=== PATIENT | female | born 1940 | race Caucasian/White ===

== ENCOUNTER → 2016-03-28 | Outpatient (CLI) | payer OTHER ==
[~2016-03-28] MED LIST: AMLO-114 PO; AMOX875T PO; ASPCH81 PO; ATOR-22 PO; BENA20TA14 PO; CHOL1000 PO; CYAN100020 PO; OMEG10007 PO; PANT40TA PO; PRAV80TA2 PO; SNG10 PO; SULF800T23 PO
--- NOTE | 2016-03-28 16:53 | DIAGNOSTIC IMAGING REPORT ---
CHEST 2 VIEWS ROUTINE CLINICAL HISTORY: R05 [id number] dyspnea COMPARISON STUDY: 03/11/2016 FINDINGS: The bones soft tissues and hemidiaphragms are normal. The cardiomediastinal silhouette is normal. The lungs are clear. The pulmonary vasculature is normal. Chronic blunting left lateral lateral costophrenic angle. Slight chronic interstitial change at both lung bases. Several old left-sided rib fractures. Emphysematous change. IMPRESSION: Chronic and emphysematous change. No acute infiltrate. Electronically signed by: Franco Joseph M.D. 03/28/2016 4:51 PM
== END | disposition home or self-care (01) ==
LOC: C.RAD 16:18
PROVIDERS: ATTEND Internal Medicine Geriatric Medicine
DX: R05 Cough (principal)

== ENCOUNTER → 2016-08-03 | Outpatient (CLI) | payer OTHER ==
[~2016-08-03] MED LIST changes: +CEPH500C PO
== END | disposition home or self-care (01) ==
LOC: C.LABSPEC 17:20
PROVIDERS: ATTEND Physician Assistant Medical
DX: L03.221 Cellulitis of neck (principal)

== ENCOUNTER → 2016-10-25 | Outpatient (CLI) | payer OTHER ==
[~2016-10-25] MED LIST changes: -CEPH500C PO
[2016-10-25 09:38] LABS: BASO % 0.4 %; BASO ABS # 0.04 K/uL (0-0.2); COMPLETE YES; EOS % 1.8 %; IG% 0.1 %; LYMPH % 24.3 %; LYMPH ABS # 2.39 K/uL (1.2-3.4); MEAN CELL VOLUME 96.3 fL (80-100); MEAN CORPUSCULAR HEMOGLOBIN 30.6 pg (25-34); MEAN CORPUSCULAR HGB CONC 31.8 g/dl (32-36); MEAN PLATELET VOLUME 13.4 fL (7.4-10.4); MONO % 10.2 %; NEUT % 63.2 %; PLATELET COUNT 161 K/uL (130-400); RED BLOOD COUNT 5.19 M/uL (4.2-5.4); WHITE BLOOD COUNT 9.83 K/uL (4.8-10.8)
[2016-10-25 09:49] LABS: ESTIMATED AVERAGE GLUCOSE 123 mg/dl; HA1C FLAG Normal (Normal)
[2016-10-25 10:12] LABS: ALT/SGPT 21 U/L (12-78); BLOOD UREA NITROGEN 16 mg/dl (7-18); BUN/CREATININE RATIO 21.6 (10-20); CALCIUM 8.3 mg/dl (8.5-10.1); CARBON DIOXIDE 32 mmol/L (21-32); CHLORIDE 105 mmol/L (98-107); CHOLESTEROL 169 mg/dl (0-200); CREATININE 0.73 mg/dl (0.60-1.20); GLUCOSE 109 mg/dl (70-99); POTASSIUM 3.9 mmol/L (3.5-5.1); SODIUM 140 mmol/L (136-145); TRIGLYCERIDES 107 mg/dl (0-150); VERY LOW DENSITY LIPOPROT CALC 21 mg/dl
[2016-10-25 10:23] LABS: ALB/GLOB RATIO 1.1 (0.9-2); ALKALINE PHOSPHATASE 65 U/L (45-117); AST/SGOT 16 U/L (15-37); CHOLESTEROL/HDL RATIO 3.6; HDL CHOLESTEROL 47 mg/dl; LDL CHOLESTEROL CALCULATED 101 mg/dl
--- NOTE | 2016-11-02 06:43 | CODING QUERY MEDICAL NECESSITY ---
SUPPORTING DIAGNOSIS NEEDED A supporting diagnosis is required for the test/procedure performed on this patient in order for us to be reimbursed by the patient's insurance. Please provide a supporting diagnosis for the following test/procedure listed below next to the test name along with your signature. *If there is no additional diagnosis for this patient that would support the following test/procedure please document that below next to the test/procedure. Test(s)/Procedure(s) that require a supporting diagnosis: * HEMOGLOBIN A1C DIAGNOSIS: Provider Signature: Date: Thank you Nichelle Bertrand [employer] Once completed, please kindly fax back to [phone] For questions please call [phone]
== END | disposition home or self-care (01) ==
LOC: C.LAB 08:39
PROVIDERS: ATTEND Internal Medicine
DX: D69.6 Thrombocytopenia, unspecified (principal); G62.9 Polyneuropathy, unspecified; R73.09 Other abnormal glucose

== ENCOUNTER → 2016-11-18 | Outpatient (CLI) | payer OTHER ==
--- NOTE | 2016-11-18 10:33 | DIAGNOSTIC IMAGING REPORT ---
RIGHT KNEE 1 OR 2 VIEWS ROUTINE CLINICAL HISTORY: Bilateral knee pain. COMPARISON: None FINDINGS: Alignment of the right knee is anatomic. No fracture or osseous lesion is identified. There is no significant joint effusion. Joint spaces are preserved. There is mild osteophytosis within the medial and patellofemoral compartments. IMPRESSION: 1. No acute fracture or significant joint effusion. 2. 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 Electronically signed by: Damion Guerrier M.D. 11/18/2016 10:31 AM Dictated Date/Time: 11/18/2016 10:30 AM
--- NOTE | 2016-11-18 10:42 | DIAGNOSTIC IMAGING REPORT ---
LEFT KNEE 2 VIEWS HISTORY: KNEE PAIN, BILATERAL COMPARISON: None. FINDINGS: There is no fracture or dislocation. Mild vascular calcifications. There is also moderate osteoarthritis within the patellofemoral compartment. Possible 6 mm intra-articular loose body within the mid joint. Moderate cartilage space narrowing within the medial compartment of the left knee with subchondral sclerosis. This is consistent with osteoarthritis. Small knee effusion. IMPRESSION: 1. No fracture or dislocation within the left knee. 2. Small left knee effusion. 3. Moderate osteoarthritis. 4. Possible 6 mm intra-articular loose body. Electronically signed by: Doug Mcdermott M.D. 11/18/2016 10:40 AM Dictated Date/Time: 11/18/2016 10:39 AM
== END | disposition home or self-care (01) ==
LOC: C.RADBC 10:07
PROVIDERS: ATTEND Internal Medicine
DX: M25.561 Pain in right knee (principal); M25.562 Pain in left knee; M25.462 Effusion, left knee; M17.12 Unilateral primary osteoarthritis, left knee

== ENCOUNTER → 2016-12-19 | Outpatient (CLI) | payer OTHER ==
--- NOTE | 2016-12-19 15:50 | MAMMOGRAPHY REPORT ---
BILATERAL DIGITAL SCREENING MAMMOGRAM WITH CAD: 12/19/2016 CLINICAL HISTORY: Routine screening. Patient has no complaints. TECHNIQUE: Bilateral CC and MLO views were obtained. Current study was also evaluated with a Compute r Aided Detection (CAD) system. COMPARISON: Comparison is made to exams dated: 12/17/2015 mammogram, 11/24/2014 mammogram, 11/22/2013 m ammogram, 11/03/2011 mammogram, 11/01/2010 mammogram, and 10/30/2009 mammogram - [facility] er. BREAST COMPOSITION: There are scattered areas of fibroglandular density in both breasts. FINDINGS: There are numerous new clusters of fine pleomorphic densities versus microcalcifications p rojecting over the lateral posterior right breast, and posterior left breast. Although they could be dermal in origin, additional spot magnification views are recommended in both breasts, after placeme nt of mole markers for any obvious skin lesions given the interval development. No suspicious mass, developing asymmetry or focal area of architectural distortion is identified bila terally. There is a stable intramammary lymph node in the left upper outer middle one third of the b reast. IMPRESSION: ACR BI-RADS CATEGORY 0: INCOMPLETE EVALUATION: NEED ADDITIONAL IMAGING EVALUATION The numerous clusters of fine pleomorphic densities versus microcalcifications projecting in each pos terior breast and additional imaging evaluation. The patient will be called to schedule an appointment. Approximately 10% of breast cancers are not detected with mammography. A negative mammographic report should not delay biopsy if a clinically suggestive mass is present. Huma Croft M.D. ay/:12/19/2016 15:26:33 Journalism Internship: Vida GAYTAN(Tran)(Karyna), [facility] letter sent: Addl Imaging 0 BI-RADS Code: ACR BI-RADS Category 0: Incomplete Evaluation: Need Additional Imaging Evaluation
== END | disposition home or self-care (01) ==
LOC: C.MAMM 09:49
PROVIDERS: ATTEND Obstetrics & Gynecology
DX: Z12.31 Encounter for screening mammogram for malignant neoplasm of breast (principal); R92.8 Other abnormal and inconclusive findings on diagnostic imaging of breast

== ENCOUNTER 2016-12-20 13:54 | Emergency (ER) | payer OTHER ==
[~2016-12-20] VITALS: Ht 172.7 cm; Wt 95.6 kg
[~2016-12-20 13:54] MED LIST changes: -AMOX875T PO; -CHOL1000 PO; -CYAN100020 PO; -PRAV80TA2 PO; -SNG10 PO; -SULF800T23 PO
[2016-12-20 14:03] VITALS: TEMP 36.9; Ht 172.7 cm; Wt 95.6 kg
[2016-12-20] MEDS ORDERED: SODIUM CHLORIDE 0.9% 1000ML 250 ML IV STA (15:24)
[2016-12-20] MEDS ORDERED: SODIUM CHLORIDE 0.9% 1000ML 1,000 ML IV STA (15:24)
[2016-12-20] MEDS ORDERED: CEFTRIAXONE SOD INJ 1 GM ADDVIAL IV STA (15:24)
[2016-12-20] MEDS ORDERED: SNG10 PO (15:48)
[2016-12-20] MEDS ORDERED: CHOL1000 PO (15:48)
[2016-12-20] MEDS ORDERED: PRAV80TA2 PO (15:48)
[2016-12-20] MEDS ORDERED: CYAN100020 PO (15:48)
[2016-12-20 16:21] LABS: BASO % 0.3 %; BASO ABS # 0.04 K/uL (0-0.2); COMPLETE YES; EOS % 2.4 %; HEMATOCRIT 46.9 % (37-47); IG% 0.3 %; LYMPH % 26.4 %; LYMPH ABS # 3.02 K/uL (1.2-3.4); MEAN CELL VOLUME 95.9 fL (80-100); MEAN CORPUSCULAR HEMOGLOBIN 31.7 pg (25-34); MEAN PLATELET VOLUME 12.9 fL (7.4-10.4); MONO % 8.4 %; NEUT % 62.2 %; PLATELET COUNT 163 K/uL (130-400); RED BLOOD COUNT 4.89 M/uL (4.2-5.4); WHITE BLOOD COUNT 11.46 K/uL (4.8-10.8)
--- NOTE | 2016-12-20 16:58 | EMERGENCY ROOM VISIT NOTE ---
History Report prepared by Eren: Shruthi Gibbs Under the Supervision of: Dr. Doyle Davies M.D. First contact with patient: 15:11 Chief Complaint: WOUND INFECTION Stated Complaint: IRRITATION TO LEFT LEG History of Present Illness The patient is a 76 year old female who presents to the Emergency Room with complaints of a worsening wound infection on the left lateral ann for the past week. The patient does not remember what cause the initial wound. She thinks that she had "a cut or a sore there." About a week ago she was shaving her legs with the electric razor and hit the wound. This irritated it and she states that her symptoms have been worsening since then. She has been putting triple antibiotic ointment and salve on it, but the wound has been getting bigger and has started seeping. The patient reports pain that she rates as a 4/10 in severity. She notes some numbness in her left foot and swelling to the left ankle. She denies fevers, body aches, chills, cough, abdominal pain, urinary symptoms, and diarrhea. She takes a daily baby aspirin and denies any other blood thinner usage. Source of History: patient Onset: 1 week ago Position: leg (left) Symptom Intensity: 4/10 Quality: other (infection) Timing: worsening Modifying Factors (Worsening): other (shaving) Associated Symptoms: + numbness (left foot), No fevers, No chills, No cough , No abdominal pain, No diarrhea, No urinary symptoms Note: Pt notes swelling to the left ankle. Pt denies body aches. Review of Systems See HPI for pertinent positives & negatives. A total of 10 systems reviewed and were otherwise negative. Past Medical & Surgical Medical Problems: (1) Acute bronchitis (2) Hypertension Old medical records were reviewed. Nurse's notes were reviewed and I agree with. Family History Cancer Social History Smoking Status: Never Smoker Marital Status: Housing Status: lives with family Occupation Status: employed Current/Historical Medications Scheduled Amlodipine (Norvasc), 10 MG PO DAILY Amoxicillin & Pot Clavulanate (Augmentin 875-125 mg), 875 MG PO BID Aspirin (Aspirin Tab-Chewable *), 1 TAB PO DAILY Benazepril (Lotensin), 20 MG PO DAILY Cholecalciferol (Vitamin D3), 1,000 INTER.UNIT PO DAILY Cyanocobalamin (Vitamin B12), 1,000 MCG PO DAILY Fish Oil (Lipan-3), 1,000 MG PO DAILY Montelukast Sod (Montelukast Sodium), 10 MG PO DAILY Pravastatin Sodium (Pravastatin Sodium), 80 MG PO DAILY Sulfa/Trimethoprim (Bactrim Ds 800MG/160MG), 1 TAB PO BID Allergies Coded Allergies: Shellfish (Unverified Allergy, Severe, HIVES,ANAPHYLAXIS, 12/20/16) Physical Exam Vital Signs Date Time Temp Pulse Resp B/P (MAP) Pulse Ox O2 Delivery O2 Flow Rate FiO2 12/20/16 18:23 86 22 167/95 92 12/20/16 16:25 73 18 169/91 92 Room Air 12/20/16 14:03 36.9 90 17 188/83 96 Room Air Physical Exam General: Well developed well nourished non ill appearing older female in no acute distress, breathing comfortably on room air. Normal speech HEENT: Normal cephalic atraumatic. Pupils are equal round and reactive to light. Extraocular movements are intact. Oropharynx is pink with moist mucous membranes. No swelling of the mouth lips or tongue. Neck: Supple with a midline trachea. No meningeal signs or stiffness, no JVD or bruits. No Stridor. Chest: Somewhat diminished breath sounds on the left compared to the right which is chronic. No wheezes or rhonchi. No increased work of breathing. Heart: regular rate and rhythm. Abdomen: Soft nontender, nondistended without rebound guarding or rigidity. Extremities: Left lateral ann has an ulceration with surrounding purple discoloration of the skin, no definite cellulitis or pus drainage, no crepitus. Spine/Back. Non tender to palpation. No CVA tenderness Skin: Good turgor without rashes. Neurologic exam: Cranial nerves two through 12 are intact. Motor and sensation are intact and symmetrical throughout. Medical Decision & Procedures Laboratory Results 12/20/16 15:40 Red Blood Count 4.89, Mean Corpuscular Volume 95.9, Mean Corpuscular Hemoglobin 31.7, Mean Corpuscular Hemoglobin Concent 33.0, Mean Platelet Volume 12.9, Neutrophils (%) (Auto) 62.2, Lymphocytes (%) (Auto) 26.4, Monocytes (%) (Auto) 8.4, Eosinophils (%) (Auto) 2.4, Basophils (%) (Auto) 0.3, Neutrophils # (Auto) 7.14, Lymphocytes # (Auto) 3.02, Monocytes # (Auto) 0.96, Eosinophils # (Auto) 0.27, Basophils # (Auto) 0.04 12/20/16 15:40 Test 12/20/16 15:40 12/20/16 15:59 White Blood Count 11.46 K/uL (4.8-10.8) Red Blood Count 4.89 M/uL (4.2-5.4) Hemoglobin 15.5 g/dL (12.0-16.0) Hematocrit 46.9 % (37-47) Mean Corpuscular Volume 95.9 fL (80-100) Mean Corpuscular Hemoglobin 31.7 pg (25-34) Mean Corpuscular Hemoglobin Concent 33.0 g/dl (32-36) Platelet Count 163 K/uL (130-400) Mean Platelet Volume 12.9 fL (7.4-10.4) Neutrophils (%) (Auto) 62.2 % Lymphocytes (%) (Auto) 26.4 % Monocytes (%) (Auto) 8.4 % Eosinophils (%) (Auto) 2.4 % Basophils (%) (Auto) 0.3 % Neutrophils # (Auto) 7.14 K/uL (1.4-6.5) Lymphocytes # (Auto) 3.02 K/uL (1.2-3.4) Monocytes # (Auto) 0.96 K/uL (0.11-0.59) Eosinophils # (Auto) 0.27 K/uL (0-0.5) Basophils # (Auto) 0.04 K/uL (0-0.2) RDW Standard Deviation 49.5 fL (36.4-46.3) RDW Coefficient of Variation 14.0 % (11.5-14.5) Immature Granulocyte % (Auto) 0.3 % Immature Granulocyte # (Auto) 0.03 K/uL (0.00-0.02) Anion Gap 8.0 mmol/L (3-11) Est Creatinine Clear Calc Drug Dose 72.5 ml/min Estimated GFR () 82.3 Estimated GFR (Non- 71.0 BUN/Creatinine Ratio 19.9 (10-20) Calcium Level 8.8 mg/dl (8.5-10.1) Bedside Lactic Acid Venous 0.85 mmol/L (0.90-1.70) Laboratory studies as stated above per my review. Medications Administered Medications (Trade) Dose Ordered Sig/Lenny Route Start Time Stop Time Status Last Admin Dose Admin Sodium Chloride 250 ml @ 999 mls/hr Q16M STAT IV 12/20/16 15:24 12/20/16 15:51 DC 12/20/16 16:21 999 MLS/HR Sodium Chloride 1,000 ml @ 100 mls/hr Q10H STAT IV 12/20/16 15:24 12/21/16 01:23 12/20/16 16:21 100 MLS/HR Ceftriaxone Sodium (Rocephin Inj) 1 gm NOW STAT IV 12/20/16 15:24 12/20/16 15:51 DC 12/20/16 16:21 1 GM Trimethoprim/ Sulfamethoxazole (Septra Ds 800/ 160MG Tab) 1 tab NOW STAT PO 12/20/16 17:22 12/20/16 17:24 DC 12/20/16 18:03 1 TAB ED Course 1511: Past medical records reviewed. The patient was evaluated in room C9, and a complete history and physical examination were performed. 1524: Rocephin 1 gm IV, NSS 1000 ml @ 100 mls/hr IV, NSS 250 ml @ 999 mls/hr IV 1719: I reassessed the patient at this time. She is feeling better and resting comfortably. I discussed the results and treatment plan with the patient. I answered all pertaining questions that she had. She expressed understanding and verbalized agreement. The patient will be discharged home. Case management is discussing follow-up with the patient at this time. 1722: Trimethoprim/Sulfamethoxazole 1 tab PO Medical Decision Differential diagnoses includes cellulitis, wound infection, ulcer, electrolyte or metabolic abnormality. This patient comes in as described above . She has a bruised area with an ulcer in the left lateral leg. She is neurologically and neurovascularly intact. She has no systemic complaints. Her white count was mildly elevated .she was given Rocephin 1 g IV.. Blood cultures obtained her. Lactic acid is not elevated .she's had no electrode or metabolic abnormalities, she's had no pus or purulence. Given this break in the skin/ulcer I'll cover her with antibiotics although does not appear to be overtly cellulitic. She was given Bactrim in the ER as well as the Rocephin IV. She will be sent home with Augmentin and Bactrim prescriptions. I also had our high risk case manager moiz to her and he is going to get her in with wound care center to further evaluate the ulceration. She is not diabetic. She was started on bacitracin with a sterile dressing. I did outline the area around the wound and she is to return if increasing redness or warmth or pus drainage worsening symptoms, fever or chills , any new problems or concerns. She will have a close follow-up with the wound center. Medication Reconcilliation Current Medication List: was personally reviewed by me Blood Pressure Screening Patient's blood pressure: Elevated blood pressure Blood pressure disposition: Referred to PCP Impression Primary Impression: Ulcer of left lower extremity Additional Impression: Wound infection Scribe Attestation The scribe's documentation has been prepared under my direction and personally reviewed by me in its entirety. I confirm that the note above accurately reflects all work, treatment, procedures, and medical decision making performed by me. Departure Information Dispostion Home / Self-Care Prescriptions Sulfa/Trimethoprim (Bactrim Ds 800MG/160MG) Tab 1 TAB PO BID, #14 TAB Prov: Doyle Davies M.D. 12/20/16 Amoxicillin & Pot Clavulanate (Augmentin 875-125 mg) 1 Tab Tab 875 MG PO BID for 7 Days, #14 TAB Prov: Doyle Davies M.D. 12/20/16 Referrals Killian Lovelace M.D. (PCP) Forms HOME CARE DOCUMENTATION FORM, IMPORTANT VISIT INFORMATION, WORK / SCHOOL INSTRUCTIONS Patient Instructions My [facility] [employer] Additional Instructions Rest. Drink plenty of fluids. Apply bacitracin and sterile dressing twice a day to the wound Use Augmentin 875 mg twice a day for 7 days Use Bactrim double strength twice a day for 7 days Follow-up with the wound care clinic in the next 1-2 days for recheck Return to the ER if: increasing redness or warmth, pus drainage, fever or chills , any new problems or concerns Problem Qualifiers Primary Impression: Ulcer of left lower extremity Non-pressure ulcer stage: unspecified non-pressure ulcer stage Qualified Codes: L97.929 - Non-pressure chronic ulcer of unspecified part of left lower leg with unspecified severity
[2016-12-20 17:07] LABS: BLOOD UREA NITROGEN 16 mg/dl (7-18); BUN/CREATININE RATIO 19.9 (10-20); CALCIUM 8.8 mg/dl (8.5-10.1); CARBON DIOXIDE 29 mmol/L (21-32); CHLORIDE 105 mmol/L (98-107); CREATININE 0.81 mg/dl (0.60-1.20); GLUCOSE 101 mg/dl (70-99); SODIUM 142 mmol/L (136-145)
[2016-12-20] MEDS ORDERED: SULFAMETHOXAZOLE/TRIMETHOPRIM DS 800/160MG TAB PO STA (17:22)
[2016-12-20] MEDS ORDERED: SULF800T23 PO (17:25)
[2016-12-20] MEDS ORDERED: AMOX875T PO (17:25)
[2016-12-20 18:23] VITALS: BP 167/95; PULSE 86; O2SAT 92
--- NOTE | 2016-12-22 18:30 | Pharmacy Progress Note ---
ED Pharmacist Culture FollowUp Date of Service: Dec 22, 2016. Patient was sent home with a prescription for Augmentin and Bactrim, which should cover the MSSA growing from the patient's ulcer/leg culture.
== END 2016-12-20 18:24 | disposition home or self-care (01) ==
LOC: C.EDB 13:55 → C.EDC 18:24
DX: L97.929 Non-pressure chronic ulcer of unspecified part of left lower leg with unspecified severity (principal); L08.9 Local infection of the skin and subcutaneous tissue, unspecified; I10 Essential (primary) hypertension; Z79.82 Long term (current) use of aspirin

== ENCOUNTER → 2016-12-26 | Outpatient (CLI) | payer OTHER ==
[~2016-12-26] MED LIST changes: +AMOX875T PO; -ATOR-22 PO; +CHOL1000 PO; +CYAN100020 PO; -PANT40TA PO; +PRAV80TA2 PO; +SNG10 PO; +SULF800T23 PO
--- NOTE | 2016-12-26 12:36 | MAMMOGRAPHY REPORT ---
BILATERAL DIGITAL DIAGNOSTIC MAMMOGRAM: 12/26/2016 CLINICAL HISTORY: Call back from screening mammography for new bilateral groupings of calcifications versus density in the posterior aspect of each breast. Patient has numerous skin lesions and/or boil s bilaterally. TECHNIQUE: Spot magnification right CC, MLO, left ML and spot compression 2-D and tomosynthesis righ t CC view was obtained. COMPARISON: Comparison is made to exams dated: 12/19/2016 mammogram, 12/17/2015 mammogram, 11/24/2014 m ammogram, 11/22/2013 mammogram, 11/06/2012 mammogram, and 11/03/2011 mammogram - [facility]ter. BREAST COMPOSITION: The tissue of both breasts is almost entirely fatty. FINDINGS: Circular dense small markers were placed on both breasts, denoting dermal lesions. On man y of the spot magnification views, the mole markers correlate with nodular asymmetries containing lillie uped densities and calcifications, suggesting dermal nature. On the spot compression tomosynthesis v iew of the right breast, the calcifications correspond to the first slice of the tomosynthesis stack, confirming dermal origin. There is no evidence of a suspicious grouping or cluster microcalcificati on within either breast. IMPRESSION: ACR BI-RADS CATEGORY 2: BENIGN The new clusters and groupings of punctate densities versus calcifications in the posterior aspect of each breast represent dermal lesions/skin moles and do not represent suspicious microcalcifications within the breast parenchyma. There is no mammographic evidence of malignancy in the breasts. Recom mend return to annual screening mammography schedule. These results and recommendations were discussed with the patient at the time of the exam. Approximately 10% of breast cancers are not detected with mammography. A negative mammographic report should not delay biopsy if a clinically suggestive mass is present. Huma Croft M.D. ay/:12/26/2016 10:51:27 [employer]: Gabriela GAYTAN(Tran)(Karyna), [facility] letter sent: Normal 1/2 BI-RADS Code: ACR BI-RADS Category 2: Benign
== END | disposition home or self-care (01) ==
LOC: C.MAMM 09:35
PROVIDERS: ATTEND Obstetrics & Gynecology
DX: N64.59 Other signs and symptoms in breast (principal)

== ENCOUNTER → 2017-02-15 | Outpatient (CLI) | payer OTHER ==
[~2017-02-15] MED LIST changes: -AMOX875T PO; +CEPH500C PO; -SULF800T23 PO
--- NOTE | 2017-02-15 15:02 | DIAGNOSTIC IMAGING REPORT ---
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 Congestion. COMPARISON STUDY: 03/28/2016 FINDINGS: Infiltrate left base. This is superimposed upon chronic pleural and parenchymal change. Mild interstitial prominence right base unaltered. Upper lungs are clear. IMPRESSION: Infiltrate left base superimposed upon pre-existing chronic pleural and parenchymal change. The above report was generated using voice recognition software. It may contain grammatical, syntax or spelling errors. Electronically signed by: Franco Joseph M.D. 02/15/2017 3:01 PM Dictated Date/Time: 02/15/2017 2:58 PM
== END | disposition home or self-care (01) ==
LOC: C.RADBC 14:45
PROVIDERS: ATTEND Physician Assistant Medical
DX: Z00.00 Encounter for general adult medical examination without abnormal findings (principal); C34.90 Malignant neoplasm of unspecified part of unspecified bronchus or lung; J18.9 Pneumonia, unspecified organism; J44.9 Chronic obstructive pulmonary disease, unspecified

== ENCOUNTER → 2017-03-10 | Outpatient (CLI) | payer OTHER ==
--- NOTE | 2017-03-10 10:32 | DIAGNOSTIC IMAGING REPORT ---
CHEST 2 VIEWS ROUTINE CLINICAL HISTORY: COMMUNITY ACQUIRED PNEUMONIA dyspnea. COMPARISON STUDY: 02/13/2017 FINDINGS: Chronic pleural and parenchymal change left lung base. This is improved compared to the prior exam. Right lung remains clear. Several old left-sided or fracture. Mild chronic apical pleural thickening. IMPRESSION: Improved aeration left lung base with chronic pleural and parenchymal fibrotic scarring as residual. The above report was generated using voice recognition software. It may contain grammatical, syntax or spelling errors. Electronically signed by: Franco Joseph M.D. 03/10/2017 10:31 AM Dictated Date/Time: 03/10/2017 10:28 AM
== END | disposition home or self-care (01) ==
LOC: C.RAD1850 10:13
PROVIDERS: ATTEND Physician Assistant Medical
DX: J18.9 Pneumonia, unspecified organism (principal)

== ENCOUNTER → 2017-06-06 | Outpatient (CLI) | payer OTHER ==
[2017-06-06 11:15] LABS: BASO % 0.3 %; BASO ABS # 0.03 K/uL (0-0.2); EOS % 1.5 %; EOS ABS # 0.15 K/uL (0-0.5); HEMATOCRIT 49.2 % (37-47); HEMOGLOBIN 15.7 g/dL (12.0-16.0); IG# 0.04 K/uL (0.00-0.02); LYMPH % 22.8 %; LYMPH ABS # 2.29 K/uL (1.2-3.4); MEAN CELL VOLUME 95.3 fL (80-100); MEAN CORPUSCULAR HEMOGLOBIN 30.4 pg (25-34); MEAN CORPUSCULAR HGB CONC 31.9 g/dl (32-36); MEAN PLATELET VOLUME 12.6 fL (7.4-10.4); MONO % 6.2 %; MONO ABS # 0.62 K/uL (0.11-0.59); NEUT % 68.8 %; NEUT ABS # 6.92 K/uL (1.4-6.5); PLATELET COUNT 196 K/uL (130-400); RED CELL DISTRIBUTION WIDTH CV 15.5 % (11.5-14.5); RED CELL DISTRIBUTION WIDTH SD 54.5 fL (36.4-46.3); WHITE BLOOD COUNT 10.05 K/uL (4.8-10.8)
[2017-06-06 11:48] LABS: ALBUMIN 3.6 gm/dl (3.4-5.0); ALT/SGPT 22 U/L (12-78); BLOOD UREA NITROGEN 13 mg/dl (7-18); CALCIUM 8.8 mg/dl (8.5-10.1); CARBON DIOXIDE 33 mmol/L (21-32); CHOLESTEROL 166 mg/dl (0-200); CREATININE 0.61 mg/dl (0.60-1.20); GLUCOSE 99 mg/dl (70-99); SODIUM 138 mmol/L (136-145)
[2017-06-06 11:59] LABS: ALKALINE PHOSPHATASE 77 U/L (45-117); AST/SGOT 10 U/L (15-37); LDL CHOLESTEROL CALCULATED 99 mg/dl; TOTAL PROTEIN 7.5 gm/dl (6.4-8.2)
== END | disposition home or self-care (01) ==
LOC: C.LAB 09:51
PROVIDERS: ATTEND Internal Medicine
DX: C34.90 Malignant neoplasm of unspecified part of unspecified bronchus or lung (principal); J44.9 Chronic obstructive pulmonary disease, unspecified; E78.5 Hyperlipidemia, unspecified; I10 Essential (primary) hypertension; G62.9 Polyneuropathy, unspecified; R73.09 Other abnormal glucose

== ENCOUNTER → 2017-06-15 | Outpatient (CLI) | payer OTHER ==
--- NOTE | 2017-06-15 16:00 | DIAGNOSTIC IMAGING REPORT ---
CHEST 2 VIEWS ROUTINE CLINICAL HISTORY: J44.9,R05 dyspnea COMPARISON STUDY: 03/10/2017 FINDINGS: Chronic pleural and parenchymal change left base. Aeration is slightly improved from the prior exam. Chronic blunting left lateral cosmetic angle. Poorly defined minimal parenchymal infiltrate peripheral aspect right midlung. Several old rib fractures pre-existing. IMPRESSION: 1. Patchy peripheral parenchymal infiltrate right midlung. 2.. Chronic pleural and parenchymal change left base. 3. Mild emphysematous change. The above report was generated using voice recognition software. It may contain grammatical, syntax or spelling errors. Electronically signed by: Franco Joseph M.D. 06/15/2017 3:58 PM Dictated Date/Time: 06/15/2017 3:57 PM
== END | disposition home or self-care (01) ==
LOC: C.RADBC 15:26
PROVIDERS: ATTEND Internal Medicine
DX: J44.9 Chronic obstructive pulmonary disease, unspecified (principal); R05 Cough

== ENCOUNTER → 2017-06-21 | Outpatient (CLI) | payer OTHER ==
--- NOTE | 2017-06-21 13:53 | DIAGNOSTIC IMAGING REPORT ---
CT SCAN OF THE CHEST WITHOUT IV CONTRAST CLINICAL HISTORY: Follow-up lung cancer. Pneumonia. COMPARISON STUDY: Chest CT dated 08/13/2014. Chest x-ray dated 06/15/2017. TECHNIQUE: CT scan of the thorax was performed from the thoracic inlet to the upper abdomen. Images are reviewed in the axial, sagittal, and coronal planes. IV contrast was not administered for this examination as per the referring clinician. Note that the examination was performed in suboptimal fashion without IV contrast for the reported clinical history. A dose lowering technique was utilized adhering to the principles of ALARA. CT DOSE: 574.94 mGycm FINDINGS: Thyroid: Imaged portions of the thyroid gland are normal in size and attenuation. Thoracic aorta: There is atherosclerotic calcification of the thoracic aorta, which is normal in caliber and demonstrates standard 3-vessel arch anatomy. Heart: The heart is enlarged and without pericardial effusion. The coronary arteries are densely calcified. The pulmonary trunk is dilated, measuring 3.8 cm in diameter. This suggests pulmonary artery hypertension. Lungs and pleural spaces: Evaluation of the lung parenchyma is modestly degraded by motion artifact. Emphysematous change is noted. There are postoperative changes from left upper lobe resection with volume loss in the left lung and compensatory hyperinflation of the right lung. Scarring is seen in the left lower lung. No pleural effusion is identified. There is patchy groundglass consolidation/nodularity seen in the right upper lobe. The left lung appears clear. The trachea and central airways are patent. Mediastinum: There is no mediastinal lymphadenopathy. Glo: Not well assessed without IV contrast. Axillae: There is no axillary lymphadenopathy. Upper abdomen: There is a small hiatal hernia. Partially visualized upper abdominal viscera is otherwise within normal limits. Skeletal structures: The skeletal structures are osteopenic. Degenerative changes noted in the shoulders and thoracic spine. No lytic or blastic bony lesions are seen. Postoperative change is seen in the left posterior ribs. IMPRESSION: 1. There is patchy groundglass consolidation/nodularity identified in the right upper lobe. The appearance is typical for an infectious/inflammatory pneumonitis. Precautionary [address] follow-up is recommended to document resolution. 2. Cardiomegaly and emphysema. 3. There are postoperative changes from left upper lobe resection. There is no convincing evidence of recurrent/metastatic disease in the thorax. 4. The left lung appears clear. Electronically signed by: Kale Greene M.D. 06/21/2017 1:52 PM Dictated Date/Time: 06/21/2017 1:44 PM
== END | disposition home or self-care (01) ==
LOC: C.CTS 13:13
PROVIDERS: ATTEND Internal Medicine
DX: C34.90 Malignant neoplasm of unspecified part of unspecified bronchus or lung (principal); J18.9 Pneumonia, unspecified organism; R93.8 Abnormal findings on diagnostic imaging of other specified body structures; J43.9 Emphysema, unspecified; I51.7 Cardiomegaly

== ENCOUNTER 2018-11-29 15:34 | Inpatient (IN) ==
[2018-11-29] MEDS ORDERED: ALBUT/IPRATROP 3MG/0.5MG NEB 3 ML VIAL INH STA (15:48)
[2018-11-29] MEDS ORDERED: methylPREDNISolone 125 MG/2 ML VIAL IV STA (15:48)
[2018-11-29 16:11] LABS: Basophils # (auto) 0.02 K/uL (0-0.2); Basophils % (auto) 0.1 %; Hematocrit (blood only) 46.9 % (37-47); Hemoglobin 15.1 g/dL (12.0-16.0); Immature Granulocytes # (auto) 0.06 K/uL (0.00-0.02); Immature Granulocytes % (auto) 0.4 %; Lymphocytes # (auto) 1.77 K/uL (1.2-3.4); Lymphocytes % (auto) 10.5 %; Mean Corpuscular Hemoglobin 30.6 pg (25-34); Mean Corpuscular Hgb Conc 32.2 g/dL (32-36); Mean Corpuscular Volume 94.9 fL (80-100); Mean Platelet Volume 12.1 fL (7.4-10.4); Monocytes # (auto) 2.02 K/uL (0.11-0.59); Neutrophils # (auto) 12.92 K/uL (1.4-6.5); Platelet Count 158 K/uL (130-400); RDW Coefficient of Variation 15.4 % (11.5-14.5); RDW Standard Deviation 53.5 fL (36.4-46.3); Red Blood Count 4.94 M/uL (4.2-5.4); White Blood Count 16.79 K/uL (4.8-10.8)
--- NOTE | 2018-11-29 16:12 | Emergency Department Note ---
History of Present Illness General Chief complaint: Shortness of Breath/Dyspnea Stated complaint: COUGH,CHEST PAIN, ECT Time Seen by Provider: 11/29/18 15:40 History of Present Illness Maximum Pain Intensity: 5 This 78-year-old female with a history of lung cancer and COPD presents the ER with chief complaint of cough and chest congestion. This is been going on since Monday. The patient states that she has felt warm but her temperature has been 99-100. She denies any ear pain or sore throat. Patient states that coughing makes her chest hurt. She has been using her Ventolin inhaler with little relief. The patient states that she had 80% of her left lung removed 9 years ago. She is followed by Dr. Gibson. The patient states that her normal oxygen level is 89 on room air. She does not use supplemental oxygen at home. The patient was seen by her PCP earlier today and sent over here for further evaluation. The patient states that she went home first before she came to the emergency room. Home Medications Home Medications Medication Instructions Recorded Confirmed Type [place]-3 Fish Oil 1 tab PO QDL 01/16/18 11/29/18 History amlodipine 10 mg PO QDL 01/16/18 11/29/18 History ascorbic acid (vitamin C) [Vitamin 1 g PO QDL 01/16/18 11/29/18 History C] aspirin 81 mg PO QDL 01/16/18 11/29/18 History benazepril 20 mg PO QDL 01/16/18 11/29/18 History cyanocobalamin (vitamin B-12) 1,000 mcg PO QDL 01/16/18 11/29/18 History [Vitamin B-12] escitalopram oxalate 10 mg PO QDL 01/16/18 11/29/18 History montelukast 10 mg PO PM 01/16/18 11/29/18 History pravastatin 80 mg PO QPM 01/16/18 11/29/18 History albuterol sulfate HFA 90 2 puff INHALATION Q4H PRN gm 10/26/18 11/29/18 History mcg/actuation aerosol inhaler cholecalciferol (vitamin D3) 1,000 1,000 units PO DAILY cap 10/26/18 11/29/18 History unit capsule Allergies Allergy/AdvReac Type Severity Reaction Status Date / Time shellfish derived Allergy Severe HIVES,ANAPH Verified 11/29/18 12:34 YLAXIS No Known Drug Allergies Allergy Unknown Uncoded 11/29/18 12:34 Past Med/Surg History Medical History Anxiety Bifascicular block CHRONIC; DATING BACK TO AT LEAST 03/2015 EKG AT [facility] Cancer LUNG S/P LOBECTOMY Chronic obstructive pulmonary disease STABLE History of pneumonia 12/2017 S/P STEROIDS/ANTIBIOTICS Hyperlipidemia Hypertension Obesity Osteoarthritis Pulmonary nodule Surgical History History of colonoscopy History of lobectomy of lung LL LOBECTOMY / CANCER History of tonsillectomy History of tooth extraction Hx of oophorectomy LEFT Family History Unknown Silicosis Mother Ovarian cancer Social History Preferred Language: Polish Communication Ability: Effective Visual Impairment: No Limitations 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 Beliefs That Will Affect Care: None marital status: Current Living Situation: Spouse Feels Safe at Home: Yes Smoking Status: Former smoker Second Hand Exposure: No ; Hx Alcohol Use: No Hx Substance Use: No Review of Systems A total of 10 systems reviewed and were otherwise negative Physical Exam Vital Signs Vital Signs - 24 hr 11/29/18 15:36 11/29/18 16:08 11/29/18 16:09 Temperature 36.9 C Temperature Source Oral Sepsis Recent Fever Within 48 Hours No Sepsis Action Taken by Nursing No Action Required Pulse Rate 101 H Pulse Rate [Right Radial] Pulse Rhythm Regular Pulse Strength Normal Respiratory Rate 20 Respiratory Effort / Characteristics Non-Labored Respiratory Depth Normal Respiratory Pattern Regular Blood Pressure 162/79 H Blood Pressure Mean 106 Blood Pressure Position Sitting Pulse Oximetry 81 L 92 92 Oxygen Delivery Method Room Air Nasal Cannula Nasal Cannula Oxygen Flow Rate 2 2 11/29/18 16:15 11/29/18 16:50 11/29/18 16:51 Temperature Temperature Source Sepsis Recent Fever Within 48 Hours Sepsis Action Taken by Nursing Pulse Rate Pulse Rate [Right Radial] 80 Pulse Rhythm Pulse Strength Respiratory Rate 18 Respiratory Effort / Characteristics Respiratory Depth Respiratory Pattern Blood Pressure Blood Pressure Mean Blood Pressure Position Pulse Oximetry 93 85 L 92 Oxygen Delivery Method Nasal Cannula Room Air Oxygen Flow Rate 2 4 11/29/18 17:31 Temperature Temperature Source Sepsis Recent Fever Within 48 Hours Sepsis Action Taken by Nursing Pulse Rate Pulse Rate [Right Radial] Pulse Rhythm Pulse Strength Respiratory Rate Respiratory Effort / Characteristics Respiratory Depth Respiratory Pattern Blood Pressure Blood Pressure Mean Blood Pressure Position Pulse Oximetry 96 Oxygen Delivery Method Nasal Cannula Oxygen Flow Rate 3 PHYSICAL EXAM: Vital Signs were reviewed: Reviewed Nurse's notes and agree. Oxygen saturation is 81 % on room air which is low. GENERAL: 78-year-old female appears in no acute distress. MENTAL STATUS: Alert, oriented, coherent. EARS: Canals clear. TMs good light reflex, no erythema or fluid level noted. NOSE: Nasal mucosa with moderate erythema engorgement. PHARYNX: No erythema, no edema noted. No exudate noted. Airway is adequate. NECK: Supple, non-tender. No lymphadenopathy noted. LUNGS: Clear to auscultation without wheezes rales or rhonchi. Breath sounds on the left are slightly distant as compared to the right. No rales or rhonchi noted. CARDIAC: Regular rate and rhythm without murmur. SKIN: No rashes noted. Course Administered Medications Discontinued Medications Albuterol (Duoneb) 3 ml INH NOW STA Stop: 11/29/18 15:49 Last Admin: 11/29/18 16:14 Dose: 3 ml Documented by: [id number] Methylprednisolone (Solumedrol) 125 mg IV NOW STA Stop: 11/29/18 15:49 Last Admin: 11/29/18 16:10 Dose: 125 mg Documented by: [id number] Medical Decision Making Differential Diagnosis COPD exacerbation, pneumonia, viral URI Medical Records Attestation: I reviewed the patient's medical records. Home Medications Current Medication List: was personally reviewed by me Laboratory Data Attestation: I reviewed the patient's lab results. Result diagrams: 11/29/18 16:01 11/29/18 16:01 Lab Results 11/29/18 11/29/18 11/29/18 Range/Units 16:01 16:01 16:01 WBC 16.79 H (4.8-10.8) K/uL RBC 4.94 (4.2-5.4) M/uL Hgb 15.1 (12.0-16.0) g/dL Hct 46.9 (37-47) % MCV 94.9 (80-100) fL MCH 30.6 (25-34) pg MCHC 32.2 (32-36) g/dL RDW Std Deviation 53.5 H (36.4-46.3) fL RDW Coeff of Mariusz 15.4 H (11.5-14.5) % Plt Count 158 (130-400) K/uL MPV 12.1 H (7.4-10.4) fL Immature Gran % (Auto) 0.4 % Neut % (Auto) 77.0 % Lymph % (Auto) 10.5 % [place] % (Auto) 12.0 % Eos % (Auto) 0.0 % Baso % (Auto) 0.1 % Immature Gran # (Auto) 0.06 H (0.00-0.02) K/uL Neut # (Auto) 12.92 H (1.4-6.5) K/uL Lymph # (Auto) 1.77 (1.2-3.4) K/uL [place] # (Auto) 2.02 H (0.11-0.59) K/uL Eos # (Auto) 0.00 (0-0.5) K/uL Baso # (Auto) 0.02 (0-0.2) K/uL PT 10.9 (9.0-12.0) Seconds INR 1.1 (0.9-1.1) APTT 30.4 (21.0-31.0) Seconds PTT Ratio 1.1 Sodium 137 (136-145) mmol/L Potassium 3.3 L (3.5-5.1) mmol/L Chloride 100 (98-107) mmol/L Carbon Dioxide 32 (21-32) mmol/L Anion Gap 5.0 (3-11) BUN 13 (7-18) mg/dl Creatinine 0.70 (0.6-1.2) mg/dl Est Cr Clr Drug Dosing 83.2 ml/min Est GFR ( Amer) 96.9 Est GFR (Non-Af Amer) 83.6 BUN/Creatinine Ratio 18.2 (10-20) Glucose 129 H (70-99) mg/dl Calcium 8.9 (8.5-10.1) mg/dl Total Bilirubin 1.1 H (0.2-1) mg/dl AST 14 L (15-37) U/L ALT 14 (12-78) U/L Alkaline Phosphatase 84 (45-117) U/L Total Protein 7.4 (6.4-8.2) gm/dl Albumin 3.2 L (3.4-5.0) gm/dl Globulin 4.2 H (2.5-4.0) gm/dl Albumin/Globulin Ratio 0.8 L (0.9-2) Specimen Hemolysis Imaging Data Attestation: I personally reviewed and interpreted this imaging study as follows: My Impression: Bilateral infiltrates noted Radiologist's Impression: XR chest 2V routine CLINICAL HISTORY: Shortness of breath/cough COMPARISON STUDY: 06/21/2018 FINDINGS: The heart is at the upper limits of normal in size. There are postsurg ical changes are prior left sided lobectomy with volume loss. There are chronic left rib deformities. There is underlying pulmonary emphysema. Since the prior study, the patient has developed diffuse elevation of interstitium. While likely representing congestive failure, and interstitial infectious/inflammatory process could appear similar. There are no significant pleural effusions. IMPRESSION: 1. Postsurgical changes on the left 2. Emphysema 3. Interval development of diffuse bilateral interstitial opacities, likely representing congestive failure although an interstitial infectious/inflammatory processes could appear similar. Clinical and radiographic follow-up is recommended Electronically signed by: Jaydon Renee M.D. 11/29/2018 4:49 PM Dictated: 11/29/18 1647 Transcribed: 11/29/18 1647 Blood Pressure Blood Pressure Findings: Elevated blood pressure Blood Pressure Disposition: elevated BP felt to be situational MDM Narrative The patient was evaluated. The patient was placed on 2 L of oxygen via nasal cannula and her pulse ox came up to 91%. Patient was placed on a monitor and continuous pulse ox. IV access was obtained. CBC and differential, renal profile, coags were ordered. Chest x-ray was ordered and interpreted by the radiologist and myself as above. The patient does not have history of congestive heart failure and her symptoms are more consistent with an infectious process. The patient's case was discussed with Dr. Neri who individually evaluated the patient and agrees with treatment plan. Labs are reviewed. White count was 16.79. The hospitalist was consulted for admission. The patient was given Rocephin 1 g IV and Zithromax 500 mg IV as per Dr. Urbina Impression & Plan Bilateral pneumonia, Hypoxia Discharge Plan Visit Data Chief Complaint: Shortness of Breath/Dyspnea Stated Complaint: COUGH,CHEST PAIN, ECT Other Complaint: Chest Pain ED Provider: Matt Neri ED Midlevel Provider: Chayito Joseph Discharge Problem: Bilateral pneumonia, Hypoxia Patient Disposition: Being Evaluated by Hospitalist Condition: Good Forms Stand Alone Forms: Call Back Authorization, My [facility] Prescriptions Prescriptions: No Action cholecalciferol (vitamin D3) 1,000 unit capsule 1,000 units PO DAILY RF: 0 ascorbic acid (vitamin C) [Vitamin C] 1,000 mg Tablet 1 g PO QDL RF: 0 aspirin 81 mg Tablet,Delayed Release (Dr/Ec) 81 mg PO QDL RF: 0 pravastatin 80 mg Tablet 80 mg PO QPM RF: 0 amlodipine 10 mg Tablet 10 mg PO QDL RF: 0 benazepril 20 mg Tablet 20 mg PO QDL RF: 0 montelukast 10 mg Tablet 10 mg PO PM RF: 0 [place]-3 Fish Oil 300-1,000 mg Capsule 1 tab PO QDL RF: 0 cyanocobalamin (vitamin B-12) [Vitamin B-12] 1,000 mcg Tablet 1,000 mcg PO QDL RF: 0 escitalopram oxalate 10 mg Tablet 10 mg PO QDL RF: 0 albuterol sulfate [Ventolin HFA] 90 mcg/actuation HFA aerosol inhaler 2 puff INHALATION Q4H PRN (Reason: Wheezing) RF: 0 Referrals Referrals: Killian Lovelace MD [Primary Care Provider] -
[2018-11-29 16:24] LABS: INR 1.1 (0.9-1.1); Partial Thromboplastin Ratio 1.1; Partial Thromboplastin Time 30.4 Seconds (21.0-31.0); Prothrombin Time 10.9 Seconds (9.0-12.0)
[2018-11-29 16:40] LABS: Albumin Globulin Ratio 0.8 (0.9-2); Albumin Level 3.2 gm/dl (3.4-5.0); BUN Creatinine Ratio 18.2 (10-20); Bilirubin,Total 1.1 mg/dl (0.2-1); Calcium 8.9 mg/dl (8.5-10.1); Creatinine Clr Calc Pharmacy 83.2 ml/min; Est GFR (African American) 96.9; Est GFR (Non-African American) 83.6; Globulin 4.2 gm/dl (2.5-4.0); Potassium 3.3 mmol/L (3.5-5.1); Total Protein 7.4 gm/dl (6.4-8.2)
--- NOTE | 2018-11-29 16:51 | XRay Report ---
XR chest 2V routine CLINICAL HISTORY: Shortness of breath/cough COMPARISON STUDY: 06/21/2018 FINDINGS: The heart is at the upper limits of normal in size. There are postsurgical changes are prio r left sided lobectomy with volume loss. There are chronic left rib deformities. There is underlying pulmonary emphysema. Since the prior study, the patient has developed diffuse elevation of interstiti um. While likely representing congestive failure, and interstitial infectious/inflammatory process co uld appear similar. There are no significant pleural effusions. IMPRESSION: 1. Postsurgical changes on the left 2. Emphysema 3. Interval development of diffuse bilateral interstitial opacities, likely representing congestive f ailure although an interstitial infectious/inflammatory processes could appear similar. Clinical and radiographic follow-up is recommended Electronically signed by: Jaydon Renee M.D. 11/29/2018 4:49 PM
[2018-11-29] MEDS ORDERED: cefTRIAXone SODIUM 1,000 MG/50 ML BAG IV STA (17:25)
[2018-11-29] MEDS ORDERED: AZITHROMYCIN 500 MG in DEXTROSE 5% 250 ML IV STA (17:25)
--- NOTE | 2018-11-29 18:44 | History & Physical Report ---
Date of Service November 29, 2018 Assessment & Plan (1) Pneumonia: Admit to inpatient on telemetry Vital signs every 4 hours Duo nebs every 4 hours as needed Ceftriaxone 1 g IV every 24 doxycycline 100 mg IV twice daily Prednisone 40 mg p.o. daily Lactate pending, procalcitonin pending, CBC CMP daily Replenish electrolytes DVT prophylaxis Lovenox subcu every 24 Follow-up blood cultures Full code (2) Dyslipidemia: Continue pravastatin 80 mg p.o. every afternoon. Pending lipid panel Present on Admission?: Yes (3) Impaired fasting glucose: Patient is not on hypoglycemic agents. Heart healthy, ADA 1800, laura diet A1c pending Present on Admission?: Yes (4) History of lung cancer: We will check CT of the chest high-resolution. Continue albuterol HFA 2 puffs every 4 hours, montelukast 10 mg p.o. q. p.m. Present on Admission?: Yes (5) Hypertension: Continue home medicine: Benazepril 20 mg p.o. daily, aspirin 81 mg p.o. daily amlodipine 10 mg p.o. daily Present on Admission?: Yes History of Present Illness Chief Complaint: Shortness of breath Primary Care Provider: Killian Lovelace MD ,Patient is a 78 years old female with past medical history of of COPD, depression, dyslipidemia, impaired fasting glucose, hypertension, lung cancer presents to the emergency room with complaints of shortness of breath and cough for 4 days. Patient also reports chest congestion. Patient states that she fe lt warm but her temperature was 99 -100. Patient denies fever chills chest pain headache syncope near syncope abdominal pain frequency urgency hematemesis hematuria dysuria melena. Patient states that 80% of her left lung was removed 9 years ago when she had a cancer. She is followed by Dr. iDor. When patient arrived her oxygen was below 88%. Patient is now on 3 L of oxygen and her O2 sats are above 92. Patient does not use oxygen at home. Labs are reviewed: White blood cell 16.79, hemoglobin 15.1, hematocrit 46.9 platelets 158, INR 1.1, BUN 13, creatinine 0.7, GFR 83.6, hemoglobin A1c pending BMP pending AST 14 ALT 14 total bili 1.1, albumin 3.2. X-ray shows postsurgical changes on the left, emphysema, interval development of diffuse bilateral interstitial opacities, likely likely representing congestive failure although an interstitial infectious inflammatory process could appear similar. Decision was made to admit patient for pneumonia and PCU telemetry. Allergies Allergy/AdvReac Type Severity Reaction Status Date / Time shellfish derived Allergy Severe HIVES,ANAPH Verified 11/29/18 12:34 YLAXIS No Known Drug Allergies Allergy Unknown Uncoded 11/29/18 12:34 Home Medications Home Medications Medication Instructions Recorded Confirmed Type [place]-3 Fish Oil 1 tab PO QDL 01/16/18 11/29/18 History amlodipine 10 mg PO QDL 01/16/18 11/29/18 History ascorbic acid (vitamin C) [Vitamin 1 g PO QDL 01/16/18 11/29/18 History C] aspirin 81 mg PO QDL 01/16/18 11/29/18 History benazepril 20 mg PO QDL 01/16/18 11/29/18 History cyanocobalamin (vitamin B-12) 1,000 mcg PO QDL 01/16/18 11/29/18 History [Vitamin B-12] escitalopram oxalate 10 mg PO QDL 01/16/18 11/29/18 History montelukast 10 mg PO PM 01/16/18 11/29/18 History pravastatin 80 mg PO QPM 01/16/18 11/29/18 History albuterol sulfate HFA 90 2 puff INHALATION Q4H PRN gm 10/26/18 11/29/18 History mcg/actuation aerosol inhaler cholecalciferol (vitamin D3) 1,000 1,000 units PO DAILY cap 10/26/18 11/29/18 History unit capsule Past Med/Surg History Medical History Anxiety Bifascicular block CHRONIC; DATING BACK TO AT LEAST 03/2015 EKG AT [facility] Cancer LUNG S/P LOBECTOMY Chronic obstructive pulmonary disease STABLE History of pneumonia 12/2017 S/P STEROIDS/ANTIBIOTICS Hyperlipidemia Hypertension Obesity Osteoarthritis Pulmonary nodule Surgical History History of colonoscopy History of lobectomy of lung LL LOBECTOMY 2/2 CANCER History of tonsillectomy History of tooth extraction Hx of oophorectomy LEFT Family History Unknown Silicosis Mother Ovarian cancer Social History Preferred Language: Lao Communication Ability: Effective Visual Impairment: No Limitations 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 Beliefs That Will Affect Care: None marital status: Current Living Situation: Spouse Other Information That Helps Us Care for You: No Feels Safe at Home: Yes Safety Concerns: Feels Safe At This Time Smoking Status: Former smoker Second Hand Exposure: No ; Hx Alcohol Use: No Hx Substance Use: No Review of Systems Review of Systems: All systems reviewed & are unremarkable except as noted in HPI & below Physical Exam Constitutional: WD/WN, vitals as above well developed Eyes: PERRL, conjunctivae normal, anicteric sclerae ENMT: external ear and nose normal, oropharynx normal Neck: trachea midline, no thyromegaly Respiratory: Auscultation: + crackles and + wheezes Cardiovascular: RRR, no murmur, no edema Gastrointestinal (Abdomen): normal bowel sounds, soft, nontender, no hepatosplenomegaly Musculoskeletal: no cyanosis or clubbing, extremities motor strength 5/5 Skin: no rashes, warm and dry Neurologic: patellar DTR's 2+ bilat, sensation intact Psychiatric: A+Ox3, euthymic affect Lymphatic: no cervical or axillary lymphadenopathy Results & Data Vital Signs (Past 12 Hours) Vital Signs Temp Pulse Pulse Resp BP Pulse Ox 11/29/18 18:00 93 H 23 91 11/29/18 17:31 17 163/35 H 96 11/29/18 17:30 24 95 11/29/18 17:13 23 145/98 H 95 11/29/18 17:00 96 11/29/18 16:51 92 11/29/18 16:50 85 L 11/29/18 16:30 88 26 H 91 11/29/18 16:17 82 18 99 11/29/18 16:15 80 18 93 11/29/18 16:09 92 11/29/18 16:08 92 11/29/18 15:36 36.9 C 101 H 20 162/79 H 81 L Code Status & VTE Plan Code Status Full code VTE Prophylaxis Plan VTE Prophylaxis will be ordered: Yes PG Care Time/CCT Total # of Minutes Spent Total Time Spent with Patient: Total time spent is greater than 50% in coordination of care (as documented) at patient's floor/unit and/or counseling patient: (1) Hypertension Hypertension type: essential hypertension Qualified Code(s): I10 - Essential (primary) hypertension
[2018-11-29] MEDS ORDERED: ALBUTEROL HFA 8 GM INHALER INH PRN (19:44)
[2018-11-29] MEDS ORDERED: SOD PHOSPHATE/SOD BIPHOSPHATE ENEMA 132 ML BTL PR PRN (19:44)
[2018-11-29] MEDS ORDERED: NSS + 20MEQ KCL 20 MEQ/1,000 ML BAG IV SCH (19:44)
[2018-11-29] MEDS ORDERED: POLYETHYLENE (MIRALAX) 17 GM PACK PO PRN (19:44)
[2018-11-29] MEDS ORDERED: GLYCERIN ADULT 12 EA SUPP PR ONE (20:00)
[2018-11-29] MEDS: FLUTICASONE/SALMETEROL 250/50 (ADVAIR) 14 PUFF/1 INHALER INH SCH (21:03)
[2018-11-29] MEDS: ENOXAPARIN INJ 40 MG/0.4 ML SYR SQ SCH (21:03)
[2018-11-29] MEDS: PRAVASTATIN SOD 40 MG TAB PO SCH (21:11)
[2018-11-29] MEDS: DOXYCYCLINE HYCLATE 100 MG CAP PO SCH (21:11)
[2018-11-29] MEDS: MONTELUKAST SODIUM 10 MG TABLET PO SCH (21:11)
[2018-11-29] MEDS: DOCUSATE SODIUM 100 MG CAP PO SCH (21:32)
[2018-11-30 06:14] LABS: Basophils # (auto) 0.01 K/uL (0-0.2); Basophils % (auto) 0.1 %; Hematocrit (blood only) 45.3 % (37-47); Hemoglobin 14.2 g/dL (12.0-16.0); Immature Granulocytes # (auto) 0.05 K/uL (0.00-0.02); Immature Granulocytes % (auto) 0.3 %; Lymphocytes # (auto) 0.75 K/uL (1.2-3.4); Lymphocytes % (auto) 5.2 %; Mean Corpuscular Hemoglobin 30.3 pg (25-34); Mean Corpuscular Hgb Conc 31.3 g/dL (32-36); Mean Corpuscular Volume 96.6 fL (80-100); Mean Platelet Volume 11.7 fL (7.4-10.4); Monocytes # (auto) 0.48 K/uL (0.11-0.59); Monocytes % (auto) 3.3 %; Neutrophils # (auto) 13.12 K/uL (1.4-6.5); Neutrophils % (auto) 91.1 %; Platelet Count 157 K/uL (130-400); RDW Coefficient of Variation 15.4 % (11.5-14.5); RDW Standard Deviation 54.3 fL (36.4-46.3); Red Blood Count 4.69 M/uL (4.2-5.4); White Blood Count 14.41 K/uL (4.8-10.8)
[2018-11-30 06:17] LABS: Estimated Average Glucose 134 mg/dl; Hemoglobin A1C 6.3 % (4.5-5.6)
[2018-11-30 06:46] LABS: Albumin Level 2.6 gm/dl (3.4-5.0); BUN Creatinine Ratio 25.3 (10-20); Bilirubin,Total 0.5 mg/dl (0.2-1); Calcium 7.9 mg/dl (8.5-10.1); Creatinine Clr Calc Pharmacy 99.6 ml/min; Est GFR (Non-African American) 88.9; Potassium 3.9 mmol/L (3.5-5.1)
[2018-11-30 06:50] LABS: Albumin Globulin Ratio 0.7 (0.9-2); Globulin 3.9 gm/dl (2.5-4.0); Total Protein 6.5 gm/dl (6.4-8.2)
[2018-11-30] MEDS ORDERED: PERFLUTREN LIPID MICROSPHERE (DEFINITY) IV ONE (07:45)
[2018-11-30] MEDS: FLUTICASONE/SALMETEROL 250/50 (ADVAIR) 14 PUFF/1 INHALER INH SCH ×2 (08:25→20:57)
[2018-11-30] MEDS: DOCUSATE SODIUM 100 MG CAP PO SCH ×2 (08:27→21:00)
[2018-11-30] MEDS: DOXYCYCLINE HYCLATE 100 MG CAP PO SCH ×2 (08:28→21:00)
[2018-11-30] MEDS: CHOLECALCIFEROL 1,000 UNITS TAB PO SCH (08:29)
[2018-11-30] MEDS ORDERED: predniSONE 20 MG TAB PO SCH (09:00)
--- NOTE | 2018-11-30 10:09 | CT Scan Report ---
CT chest wo con CT DOSE: 736.81 mGycm CLINICAL HISTORY: 78 years-old Female with pulmonary nodule. Follow-up study in a patient with histo ry of pulmonary nodule. TECHNIQUE: Multiaxial CT images of the chest were performed without contrast. A dose lowering techni que was utilized adhering to the principles of ALARA. COMPARISON: Chest CT 08/28/2018, 03/05/2018, 08/13/2014. FINDINGS: No focal thyroid nodule identified. Moderate cardiomegaly without pericardial effusion. Coronary jeff rial and aortic annular calcifications are noted. No thoracic aortic aneurysm. Moderate dilation of t he pulmonary artery suggests pulmonary arterial hypertension. Prominent and enlarged mediastinal lymp h nodes measure up to 1.2 x 2.4 cm within the subcarinal distribution, increased in size from compari son. Left hilar prominence is suggestive of left hilar adenopathy, limited evaluation without the use of IV contrast. Trace pleural effusions are redemonstrated. There is no pneumothorax. Postoperative changes from prior left lower lobectomy. Subsegmental consolidation about the dependent right lower l obe. Additionally, there are scattered groundglass and alveolar opacities within all lobes bilaterall y with areas of moderate bronchial wall thickening. Mild intralobular septal thickening of the right lung apex. 7 mm solid nodule of the posterior segment right upper lobe appears unchanged on image 92 series 4. Mild degree of tracheobronchial secretions are noted. Scattered multifocal tree-in-bud nodu les. Mild wall thickening about the distal esophagus. No acute process of the imaged upper abdomen. Soft t issues are within normal limits. Degenerative changes of the spine and shoulders. No suspicious bone lesions identified. Multiple healed remote left-sided rib fractures. IMPRESSION: 1. Scattered multifocal mixed groundglass and alveolar opacities within all lobes bilaterally is sugg estive of multifocal pneumonia. Follow-up imaging after treatment course is recommended to document c omplete resolution. 2. Scattered multifocal tree-in-bud nodules compatible with associated bronchiolitis. 3. Emphysema with bronchitis. 4. Mediastinal and hilar adenopathy, likely reactive. 5. Trace pleural effusions, unchanged. 6. Cardiomegaly. 7. Unchanged size of the 7 mm solid nodule of the posterior segment right upper lobe. Please refer to below summary of Fleischner criteria recommendations for follow-up of incidental CT n odules (H Carl, Guidelines for management of small pulmonary nodules detected on CT scans: A hilary ruelas from the Fleischner Society, Radiology 237: [phone].) SOLID NODULES Solitary nodule size: <6 mm * Low risk patients: no follow-up needed * high risk patients: optional CT at 12 months Solitary nodule size: 6-8 mm * Low risk patients: follow-up at 6-12 months, then consider further follow-up at 18-24 months * high risk patients: initial follow-up CT at 6-12 months and then at 18-24 months if no change Note: newly detected indeterminate nodule in persons 35 years of age or older. * Low risk patients: minimal or absent history of smoking and/or other known risk factors * high risk patients: history of smoking or of other known risk factors (e.g. first degree relative with lung cancer, or exposure to asbestos, radon, uranium) * if a nodule up to 8 mm is partly solid or is ground glass further follow-up is required after 24 m onths to exclude possible slow growing adenocarcinoma (HANS) The above report was generated using voice recognition software. It may contain grammatical, syntax o r spelling errors. Dictated: 11/30/2018 9:14 AM Transcribed: 11/30/2018 9:26 AM Yael [id number] [place] Electronically signed by: Олег Sy M.D. 11/30/2018 10:08 AM
[2018-11-30] MEDS: ASCORBIC ACID 500 MG TAB PO SCH (12:45)
[2018-11-30] MEDS: OMEGA-3 (PURIFIED FISH OIL) 1 GM CAP PO SCH (12:45)
[2018-11-30] MEDS: AMLODIPINE BESYLATE 5 MG TAB PO SCH (12:46)
[2018-11-30] MEDS: CYANOCOBALAMIN 500 MCG TABLET (VITAMIN B-12) PO SCH (12:46)
[2018-11-30] MEDS: ESCITALOPRAM OXALATE 10 MG TAB PO SCH (12:46)
[2018-11-30] MEDS: ENALAPRIL MALEATE 10 MG TAB PO SCH (12:47)
--- NOTE | 2018-11-30 14:14 | Family Medicine Progress Note ---
Date of Service November 30, 2018 Assessment & Plan (1) Pneumonia: Pneumonia: - Pt is clinically improving on ceftriaxone and doxycycline. - Duonebs q4 hours as needed for shortness of breath. - Prednisone decreased today to 30 mg p.o., will decrease by ten each day until dose of zero. - Will f/u blood cultures. Constipation - PRN Polyethylene glycol PRN for constipation. Dyslipidemia - Continue pravastatin 80 mg p.o. every afternoon. No hypercholesterolemia on current labwork. Impaired fasting glucose - Patient is not on hypoglycemic agents. - Heart healthy diet, A1c 6.3% - Will perform some diabetes education this admission. History of lung cancer: - CT chest showed pneumonia but no masses of the lungs. Continue albuterol HFA 2 puffs every 4 hours, montelukast 10 mg p.o. q. p.m. Hypertension: - Continue home Benazepril 20 mg p.o. daily, aspirin 81 mg p.o. daily amlodipine 10 mg p.o. daily Dispo: Med/Surg DVT Prophylaxis: Enoxaparin FEN: PO fluids and heart healthy diet, no electrolyte abnormalities that need to be repleted at this time. Code Status: Full Code (2) Dyslipidemia: Present on Admission?: Yes (3) Impaired fasting glucose: Present on Admission?: Yes (4) History of lung cancer: Present on Admission?: Yes (5) Hypertension: Present on Admission?: Yes Supervising Physician Co-Signing Physician Notes I personally examined the patient and verified all barajas points of history and exam, discussed case, and agree with decision making with Dr Bustamante. Feeling better breathing better coughing but nonproductive Vitals noted, in general she is awake alert pleasant no distress. Lungs are clear no clear rales rhonchi or wheezes good effort. No accessory muscle use. Musculoskeletal shows paraspinal hypertonicity and decreased rib range of motioninhibitory pressure and balanced ligamentous tension done by both myself and Dr. Mary texture is improved. Patient tolerated well. Community-acquired pneumonia -Doing better. Continue current antibiotics. (Considered change of doxycycline to azithromycin given her low risk for MRSA, but given her brittle lung function and the fact that she is getting better, will continue current course) hopefully home in the next 1 to 2 days on Doxy and Cedinir. -Wean steroids Somatic dysfunction rib and thoracic region -OMT as above DVT prophylaxis -Lovenox Subjective Pt without acute events overnight. Reports that she is less short of breath now than she was yesterday. Has been in the hospital once a year for the last three years in the fall for a pneumonia per her. States has some sputum occasionally that is clear. No chest pain. Denies fevers but confirms subjective chills over the last few days. On 3LNC in the room, resting comfortably. Reports she has been constipated for 3-4 days. Has not had any bloody stools, no dysuria or hematuria, no urinary frequency or urgency. Review of Systems Constitutional: + chills and + weakness; no fever Respiratory: + cough and + chest congestion; no dyspnea (none actively on interview) Cardiovascular: no chest pain, no palpitations and no edema Gastrointestinal: + constipation (x4 days); no nausea, no vomiting and no diarrhea/loose stools Genitourinary: no dysuria, no urinary frequency, no urinary urgency and no hematuria Physical Exam Constitutional: WD/WN, vitals as above Respiratory: symmetrical chest expansion, some bilateral lower lobe crackles, no wheezes. Good inspiratory effort. Cardiovascular: RRR, no murmur, no edema Gastrointestinal (Abdomen): normal bowel sounds, soft, nontender, no hepatosplenomegaly Skin: no rashes, warm and dry Psychiatric: A+Ox3, euthymic affect Results & Data Vital Signs (Past 12 Hours) Vital Signs Temp Pulse Pulse Resp BP BP Pulse Ox 11/30/18 12:00 36.8 C 95 H 18 169/78 H 92 11/30/18 08:13 36.8 C 92 H 18 168/82 H 91 11/30/18 08:00 73 11/30/18 03:00 36.5 C 85 18 141/76 H 95 PG Care Time/CCT Total # of Minutes Spent Total Time Spent with Patient: Total time spent is greater than 50% in coordination of care (as documented) at patient's floor/unit and/or counseling patient: Resident Activity Tracking Resident Involvement: Resident Care Provided Care Provided: Adult Hospital Medicine (1) Hypertension Hypertension type: essential hypertension Qualified Code(s): I10 - Essential (primary) hypertension (2) Pneumonia Laterality: bilateral Lung location: unspecified part of lung Pneumonia type: due to unspecified organism Qualified Code(s): J18.9 - Pneumonia, unspecified organism
[2018-11-30] MEDS: cefTRIAXone SODIUM 1,000 MG/50 ML BAG IV SCH (18:41)
[2018-11-30] MEDS: ENOXAPARIN INJ 40 MG/0.4 ML SYR SQ SCH (20:58)
[2018-11-30] MEDS: MONTELUKAST SODIUM 10 MG TABLET PO SCH (21:00)
[2018-11-30] MEDS: PRAVASTATIN SOD 40 MG TAB PO SCH (21:00)
[2018-12-01] MEDS ORDERED: GUAIFENESIN/CODEINE 100MG/10MG 5ML UDC PO STA (00:06)
[2018-12-01 06:48] LABS: Basophils # (auto) 0.02 K/uL (0-0.2); Basophils % (auto) 0.1 %; Hematocrit (blood only) 50.8 % (37-47); Hemoglobin 15.8 g/dL (12.0-16.0); Immature Granulocytes # (auto) 0.07 K/uL (0.00-0.02); Immature Granulocytes % (auto) 0.4 %; Lymphocytes # (auto) 2.43 K/uL (1.2-3.4); Lymphocytes % (auto) 12.3 %; Mean Corpuscular Hemoglobin 30.6 pg (25-34); Mean Corpuscular Hgb Conc 31.1 g/dL (32-36); Mean Corpuscular Volume 98.4 fL (80-100); Mean Platelet Volume 12.5 fL (7.4-10.4); Monocytes # (auto) 2.05 K/uL (0.11-0.59); Monocytes % (auto) 10.4 %; Neutrophils # (auto) 15.23 K/uL (1.4-6.5); Neutrophils % (auto) 76.8 %; Platelet Count 210 K/uL (130-400); RDW Coefficient of Variation 15.5 % (11.5-14.5); RDW Standard Deviation 56.1 fL (36.4-46.3); Red Blood Count 5.16 M/uL (4.2-5.4)
[2018-12-01 07:34] LABS: Albumin Globulin Ratio 0.7 (0.9-2); Albumin Level 2.9 gm/dl (3.4-5.0); BUN Creatinine Ratio 27.5 (10-20); Bilirubin,Total 0.4 mg/dl (0.2-1); Calcium 9.2 mg/dl (8.5-10.1); Creatinine Clr Calc Pharmacy 96.4 ml/min; Est GFR (African American) 101.9; Est GFR (Non-African American) 87.9; Globulin 4.3 gm/dl (2.5-4.0); Potassium 3.7 mmol/L (3.5-5.1); Total Protein 7.2 gm/dl (6.4-8.2)
[2018-12-01] MEDS: DOXYCYCLINE HYCLATE 100 MG CAP PO SCH (08:17)
[2018-12-01] MEDS: DOCUSATE SODIUM 100 MG CAP PO SCH ×2 (08:19→20:43)
[2018-12-01] MEDS: FLUTICASONE/SALMETEROL 250/50 (ADVAIR) 14 PUFF/1 INHALER INH SCH ×2 (08:19→20:38)
[2018-12-01] MEDS: CHOLECALCIFEROL 1,000 UNITS TAB PO SCH (08:19)
[2018-12-01] MEDS ORDERED: predniSONE 10 MG TABLET PO SCH (09:00)
[2018-12-01] MEDS ORDERED: ALBUT/IPRATROP 3MG/0.5MG NEB 3 ML VIAL NEB PRN (10:47)
[2018-12-01] MEDS: ALBUT/IPRATROP 3MG/0.5MG NEB 3 ML VIAL NEB PRN ×2 (11:23→22:35)
[2018-12-01] MEDS: AMLODIPINE BESYLATE 5 MG TAB PO SCH (11:39)
[2018-12-01] MEDS: ENALAPRIL MALEATE 10 MG TAB PO SCH (11:39)
[2018-12-01] MEDS: ESCITALOPRAM OXALATE 10 MG TAB PO SCH (11:39)
[2018-12-01] MEDS: CYANOCOBALAMIN 500 MCG TABLET (VITAMIN B-12) PO SCH (11:39)
[2018-12-01] MEDS: ASCORBIC ACID 500 MG TAB PO SCH (11:40)
[2018-12-01] MEDS: OMEGA-3 (PURIFIED FISH OIL) 1 GM CAP PO SCH (11:40)
[2018-12-01] MEDS: ACETAMINOPHEN 325 MG TAB PO PRN (11:42)
--- NOTE | 2018-12-01 14:07 | Family Medicine Progress Note ---
Date of Service December 01, 2018 Assessment & Plan (1) Community acquired pneumonia: 78yo F PMHx COPD, left lung pneumonia s/p partial pneumonectomy, HTN, HLD, prediabetes here for treatment of community acquired pneumonia with minimal improvement from yesterday. Community Acquired Pneumonia in setting of h/o partial pneumonectomy COPD exacerbation - Pt is on ceftriaxone and doxycycline to cover for G+, G- and atypicals, reports less SOB this AM compared to last evening when she could not sleep. - White count went up to 19.81 however suspect this is due to the steroids she is being given. - Duonebs q4 hours as needed for shortness of breath. - Continue albuterol HFA 2 puffs every 4 hours, montelukast 10 mg p.o. q. p.m. - Prednisone decreased today to 30 mg p.o., will decrease by ten each day until dose of zero. - Will f/u blood cultures, negative to date. Constipation - PRN Polyethylene glycol PRN for constipation. HTN - Continue home Benazepril 20 mg p.o. daily, amlodipine 10 mg p.o. daily. BP s ystolic 185 one episode this AM, no intervention at this time, likely due to steroids and albuterol neb. Dyslipidemia - Continue pravastatin 80 mg p.o. every afternoon. No hypercholesterolemia on current labwork. Impaired fasting glucose - Patient is not on hypoglycemic agents. - Heart healthy diet, A1c 6.3%. - Will perform some diabetes education this admission. History of lung cancer - CT chest showed pneumonia but no masses of the lungs. Dispo: Med/Surg DVT Prophylaxis: Enoxaparin FEN: PO fluids and heart healthy diet, no electrolyte abnormalities that need to be repleted at this time Code Status: Full Code (2) Hypertension: (3) Dyslipidemia: (4) Impaired fasting glucose: (5) History of lung cancer: (6) Depression: Supervising Physician Co-Signing Physician Notes Resident Physician Supervision Note: I independently interviewed and examined the patient and verified the barajas history and physical, reviewed labs and image studies, discussed the case with the resident Dr. Bustamante and agree with the findings and care plan. Subjective Overnight pt requested cough syrup for cough. Was able to sleep following administration. Feels about the same today as yesterday, still reporting chest congestion and some shortness of breath. Review of Systems Constitutional: no fever and no chills Respiratory: + cough, + chest congestion and + dyspnea Cardiovascular: no chest pain, no palpitations and no edema Gastrointestinal: no abdominal pain, no nausea, no vomiting and no change in stools Genitourinary: no dysuria, no urinary frequency, no urinary urgency and no hematuria Physical Exam Constitutional: WD/WN, vitals as above Respiratory: normal respiratory effort good air movement, lungs sound much clearer today but still some minor expiratory wheeze. Cardiovascular: RRR, no murmur, no edema Gastrointestinal (Abdomen): normal bowel sounds, soft, nontender, no hepatosplenomegaly Skin: no rashes, warm and dry Psychiatric: A+Ox3, euthymic affect Results & Data Vital Signs (Past 12 Hours) Vital Signs Temp Pulse Resp BP Pulse Ox 12/01/18 11:40 185/53 H 12/01/18 11:27 84 18 95 12/01/18 07:03 36.5 C 79 18 162/82 H 95 PG Care Time/CCT Total # of Minutes Spent Total Time Spent with Patient: Total time spent is greater than 50% in coordination of care (as documented) at patient's floor/unit and/or counseling patient: (1) Depression Depression Type: reactive depression Qualified Code(s): F32.9 - Major depressive disorder, single episode, unspecified (2) Community acquired pneumonia Laterality: unspecified laterality Qualified Code(s): J18.9 - Pneumonia, unspecified organism (3) Hypertension Hypertension type: essential hypertension Qualified Code(s): I10 - Essential (primary) hypertension
[2018-12-01] MEDS ORDERED: guaiFENesin SUGAR FREE 100 MG/5 ML UDC PO PRN (16:05)
[2018-12-01] MEDS: cefTRIAXone SODIUM 1,000 MG/50 ML BAG IV SCH (17:47)
[2018-12-01] MEDS: PRAVASTATIN SOD 40 MG TAB PO SCH (20:37)
[2018-12-01] MEDS: MONTELUKAST SODIUM 10 MG TABLET PO SCH (20:38)
[2018-12-01] MEDS: ENOXAPARIN INJ 40 MG/0.4 ML SYR SQ SCH (20:38)
[2018-12-02] MEDS: ACETAMINOPHEN 325 MG TAB PO PRN (06:33)
[2018-12-02] MEDS: ALBUT/IPRATROP 3MG/0.5MG NEB 3 ML VIAL NEB PRN (06:57)
[2018-12-02] MEDS: FLUTICASONE/SALMETEROL 250/50 (ADVAIR) 14 PUFF/1 INHALER INH SCH (07:44)
[2018-12-02] MEDS: CHOLECALCIFEROL 1,000 UNITS TAB PO SCH (07:46)
[2018-12-02] MEDS: DOCUSATE SODIUM 100 MG CAP PO SCH (07:48)
[2018-12-02 08:23] LABS: Basophils # (auto) 0.01 K/uL (0-0.2); Basophils % (auto) 0.1 %; Eosinophils # (auto) 0.03 K/uL (0-0.5); Eosinophils % (auto) 0.2 %; Hematocrit (blood only) 46.6 % (37-47); Hemoglobin 14.5 g/dL (12.0-16.0); Immature Granulocytes # (auto) 0.04 K/uL (0.00-0.02); Immature Granulocytes % (auto) 0.3 %; Lymphocytes % (auto) 19.6 %; Mean Corpuscular Hemoglobin 30.3 pg (25-34); Mean Corpuscular Hgb Conc 31.1 g/dL (32-36); Mean Corpuscular Volume 97.3 fL (80-100); Mean Platelet Volume 11.8 fL (7.4-10.4); Monocytes % (auto) 11.3 %; Neutrophils # (auto) 9.07 K/uL (1.4-6.5); Neutrophils % (auto) 68.5 %; Platelet Count 201 K/uL (130-400); RDW Coefficient of Variation 15.6 % (11.5-14.5); RDW Standard Deviation 55.7 fL (36.4-46.3); Red Blood Count 4.79 M/uL (4.2-5.4); White Blood Count 13.25 K/uL (4.8-10.8)
[2018-12-02 08:52] LABS: Albumin Level 2.6 gm/dl (3.4-5.0); BUN Creatinine Ratio 31.9 (10-20); Calcium 8.5 mg/dl (8.5-10.1); Creatinine Clr Calc Pharmacy 131.4 ml/min; Est GFR (African American) 112.8; Est GFR (Non-African American) 97.4; Potassium 3.7 mmol/L (3.5-5.1)
[2018-12-02 08:54] LABS: Albumin Globulin Ratio 0.7 (0.9-2); Bilirubin,Total 0.4 mg/dl (0.2-1); Total Protein 6.6 gm/dl (6.4-8.2)
[2018-12-02] MEDS ORDERED: predniSONE 10 MG TABLET PO SCH (09:00)
[2018-12-02] MEDS: ENALAPRIL MALEATE 10 MG TAB PO SCH (11:01)
[2018-12-02] MEDS: AMLODIPINE BESYLATE 5 MG TAB PO SCH (11:02)
[2018-12-02] MEDS: CYANOCOBALAMIN 500 MCG TABLET (VITAMIN B-12) PO SCH (11:02)
[2018-12-02] MEDS: ASCORBIC ACID 500 MG TAB PO SCH (11:03)
[2018-12-02] MEDS: OMEGA-3 (PURIFIED FISH OIL) 1 GM CAP PO SCH (11:03)
[2018-12-02] MEDS: ESCITALOPRAM OXALATE 10 MG TAB PO SCH (11:03)
--- NOTE | 2018-12-02 13:12 | Discharge Summary ---
Date of Service December 02, 2018 Admission HPI Per Admitting Provider Patient is a 78 years old female with past medical history of of COPD, depression, dyslipidemia, impaired fasting glucose, hypertension, lung cancer presents to the emergency room with complaints of shortness of breath and cough for 4 days. Patient also reports chest congestion. Patient states that she felt warm but her temperature was 99 -100. Patient denies fever chills chest pain headache syncope near syncope abdominal pain frequency urgency hematemesis hematuria dysuria melena. Patient states that 80% of her left lung was removed 9 years ago when she had a cancer. She is followed by Dr. Dior. When patient arrived her oxygen was below 88%. Patient is now on 3 L of oxygen and her O2 sats are above 92. Patient does not use oxygen at home. Labs are reviewed: White blood cell 16.79, hemoglobin 15.1, hematocrit 46.9 platelets 158, INR 1.1, BUN 13, creatinine 0.7, GFR 83.6, hemoglobin A1c pending BMP pending AST 14 ALT 14 total bili 1.1, albumin 3.2. X-ray shows postsurgical changes on the left, emphysema, interval development of diffuse bilateral interstitial opacities, likely likely representing congestive failure although an interstitial infectious inflammatory process could appear similar. Decision was made to admit patient for pneumonia and PCU telemetry. Admission Exam Per Admitting Provider Constitutional: WD/WN, vitals as above well developed Eyes: PERRL, conjunctivae normal, anicteric sclerae ENMT: external ear and nose normal, oropharynx normal Neck: trachea midline, no thyromegaly Respiratory: Auscultation: + crackles and + wheezes Cardiovascular: RRR, no murmur, no edema Gastrointestinal (Abdomen): normal bowel sounds, soft, nontender, no hepatosplenomegaly Musculoskeletal: no cyanosis or clubbing, extremities motor strength 5/5 Skin: no rashes, warm and dry Neurologic: patellar DTR's 2+ bilat, sensation intact Psychiatric: A+Ox3, euthymic affect Lymphatic: no cervical or axillary lymphadenopathy Principal Diagnosis Community Acquired Pneumonia Discharge Exam Constitutional WD/WN, vitals as above Respiratory Normal respiratory effort, no rales, mild end expiratory wheezing still present but improved from yesterday. Cardiovascular RRR, no murmur, no edema Gastrointestinal (Abdomen) normal bowel sounds, soft, nontender, no hepatosplenomegaly Skin no rashes, warm and dry Psychiatric A+Ox3, euthymic affect Discharge Data Allergies Allergy/AdvReac Type Severity Reaction Status Date / Time shellfish derived Allergy Severe HIVES,ANAPH Verified 11/29/18 12:34 YLAXIS Consultations 11/29/18 17:25 ED Decision to Admit Stat Ordered Studies 11/29/18 23:18 CT chest wo con Routine Hospital Course (1) Community acquired pneumonia: 78yo F PMHx COPD, left lung pneumonia s/p partial pneumonectomy, HTN, HLD, prediabetes here for treatment of community acquired pneumonia with significant improvement in O2 saturation, white count, and overall clinical appearance today. Community Acquired Pneumonia in setting of h/o partial pneumonectomy COPD exacerbation - Pt admitted for shortness of breath and cough, found to have diffuse pneumonia on CXR, started on broad spectrum antibiotics. BCx negative. - Has continued to improve in white count (now 13.25 down from >19). Clinically looks and feels well today, no shortness of breath even when off of the O2 at rest, respiratory therapy saw and suggested 2LNC for ambulation and strenuous activity at home. - Pt will use Advair inhaler once daily and discuss samples with her PCP as these inhalers have been expensive for her in the past. - Pt will go home on docycycline 100mg BID for 5 days and follow up within that time with her PCP. - Pt has one more dose of prednisone tomorrow at the 10mg dose. Have sent prescription to her pharmacy. HTN - Continue home Benazepril 20 mg p.o. daily, amlodipine 10 mg p.o. daily. Dyslipidemia - Continue pravastatin 80 mg p.o. every afternoon. No hypercholesterolemia on current labwork. Impaired fasting glucose - Patient is not on hypoglycemic agents. - Discussed heart healthy diet, A1c 6.3%. - Will follow up with her PCP regarding prediabetes. History of lung cancer - CT chest showed pneumonia but no masses of the lungs. (2) Impaired fasting glucose: (3) Hypertension: (4) COPD (chronic obstructive pulmonary disease): (5) Depression: (6) Dyslipidemia: (7) History of lung cancer: Total Time Total Time Spent Total Time Spent (In Minutes): 35 minutes Discharge Plan Discharge Items Patient Disposition: Home - Self-Care Reason For Visit: PNEUMONIA, SOB, RESPIRATORY FAILURE Discharge Diagnosis: Pneumonia Condition: Good Discharge Goals: Decrease discomfort, Improve disease control and Prevent disease Activity: Resume your previous activity Non-emergency contact: Primary Care Provider Call non-emergency contact if: you have any medication questions, your symptoms worsen and your temperature is above 100.5 Follow-up/Referrals: Killian Lovelace MD [Primary Care Provider] - Diet: Heart Healthy Add Provider Instructions: You were admitted to the hospital for a pneumonia. You were found to have low oxygen so we gave you oxygen through a tube that goes in your nose, and this helped with your oxygen levels. We gave you antibiotics to fight the infection, and a steroid pill to help reduce inflammation of the lungs. After a few days in the hospital treating you we feel comfortable sending you home with specific instructions for when you go home. 1) You will go home with a prescription for Prednisone, a steroid pill. You will have one pill to take tomorrow morning and then you are done with the steroid pill. This prescription has been sent to the [facility] at [facility]. 2) You will go home with an antibiotic called doxycycline. You will take this twice a day for five days. Be sure to complete this antibiotic even if you feel 100% better. This has also been sent to the [facility] at [facility]. 3) You are going home with a prescription for 2 liters of oxygen. Please make sure that you use this oxygen when you are exerting yourself such as when walking around and when performing activities like chores that are more tiring for you. 4) A hospital staff member will call you to set up an appointment for you with your primary care doctor Dr. Lovelace. You will want to schedule an appointment with him for within 7 days of discharge from the hospital. When you meet with him be sure to discuss if he has samples of the daily inhaler Advair since the Symbicort was so expensive for you. 5) We have sent you home with the inhaler you were using in the hospital, called Advair. Please use this once a day until it is empty. Prescriptions: New prednisone 10 mg tablet 10 mg PO DAILY 1 Days Qty: 1 RF: 0 doxycycline hyclate 100 mg tablet 100 mg PO BID 5 Days Qty: 10 RF: 0 Continued cholecalciferol (vitamin D3) 1,000 unit capsule 1,000 units PO DAILY RF: 0 ascorbic acid (vitamin C) [Vitamin C] 1,000 mg Tablet 1 g PO QDL RF: 0 aspirin 81 mg Tablet,Delayed Release (Dr/Ec) 81 mg PO QDL RF: 0 pravastatin 80 mg Tablet 80 mg PO QPM RF: 0 amlodipine 10 mg Tablet 10 mg PO QDL RF: 0 benazepril 20 mg Tablet 20 mg PO QDL RF: 0 montelukast 10 mg Tablet 10 mg PO PM RF: 0 Trail-3 Fish Oil 300-1,000 mg Capsule 1 tab PO QDL RF: 0 cyanocobalamin (vitamin B-12) [Vitamin B-12] 1,000 mcg Tablet 1,000 mcg PO QDL RF: 0 escitalopram oxalate 10 mg Tablet 10 mg PO QDL RF: 0 albuterol sulfate [Ventolin HFA] 90 mcg/actuation HFA aerosol inhaler 2 puff INHALATION Q4H PRN (Reason: Wheezing) RF: 0 Stand-Alone Forms: [facility] Discharge Orders: Discharge Order (Routine); Ordered 12/02/18 Ordered By: Argelia Bustamante Admission Data Admit Date/Time: 11/29/18 18:15 Attending Provider: Gilma Mitchell Admit Provider: Nathaly Urbina Primary Care Provider: Killian Lovelace Other Providers: Nathaly Urbina ; Matt Crow Service: Medical Other Interventions: Discharge Summary Assessment (RN) Last Done: 12/02/18 14:30 DC Date/Time DO NOT enter until pt leaves facility: 12/02/18 15:44 Supervising Physician Co-Signing Physician Notes Resident Physician Supervision Note: I independently interviewed and examined the patient and verified the barajas history and physical, reviewed labs and image studies, discussed the case with the resident Dr. Bustamante and agree with the findings and care plan. Time spent in discharge 40min Resident Activity Tracking Resident Involvement: Resident Care Provided Care Provided: Adult Hospital Medicine
== END 2018-12-02 15:44 | disposition home or self-care (01) | DRG 190 ==
LOC: ED 15:34 → 2E 18:15 → SUATTDRO 18:15 → 2E 19:30 → 2N 11-30 16:35

== ENCOUNTER 2020-03-03 11:32 | Inpatient (IN) ==
[2020-03-03 12:27] LABS: Basophils # (auto) 0.03 K/uL (0-0.2); Basophils % (auto) 0.3 %; Hematocrit (blood only) 50.2 % (37-47); Hemoglobin 15.5 g/dL (12.0-16.0); Immature Granulocytes # (auto) 0.02 K/uL (0.00-0.02); Immature Granulocytes % (auto) 0.2 %; Lymphocytes # (auto) 1.21 K/uL (1.2-3.4); Lymphocytes % (auto) 11.9 %; Mean Corpuscular Hemoglobin 30.9 pg (25-34); Mean Corpuscular Hgb Conc 30.9 g/dL (32-36); Mean Platelet Volume 12.4 fL (7.4-10.4); Monocytes # (auto) 1.05 K/uL (0.11-0.59); Monocytes % (auto) 10.3 %; Neutrophils # (auto) 7.74 K/uL (1.4-6.5); Neutrophils % (auto) 76.3 %; Platelet Count 185 K/uL (130-400); RDW Coefficient of Variation 15.5 % (11.5-14.5); RDW Standard Deviation 57.1 fL (36.4-46.3); Red Blood Count 5.02 M/uL (4.2-5.4); White Blood Count 10.15 K/uL (4.8-10.8)
[2020-03-03 12:40] LABS: Partial Thromboplastin Ratio 1.1; Partial Thromboplastin Time 29.3 Seconds (21.0-31.0); Prothrombin Time 10.9 Seconds (9.0-12.0)
[2020-03-03 12:46] LABS: Alanine Aminotransferase 13 U/L (12-78); Albumin Level 3.5 gm/dl (3.4-5.0); Aspartate Aminotransferase 5 U/L (15-37); BUN Creatinine Ratio 20.8 (10-20); Blood Urea Nitrogen 11 mg/dl (7-18); Calcium 8.7 mg/dl (8.5-10.1); Carbon Dioxide 36 mmol/L (21-32); Chloride 100 mmol/L (98-107); Creatinine Clr Calc Pharmacy 105.1 ml/min; Est GFR (African American) 104.8; Est GFR (Non-African American) 90.4; Glucose 119 mg/dl (70-99); Magnesium 2.3 mg/dl (1.8-2.4); Potassium 3.5 mmol/L (3.5-5.1); Sodium 138 mmol/L (136-145)
[2020-03-03 12:51] LABS: Albumin Globulin Ratio 0.9 (0.9-2); Alkaline Phosphatase 100 U/L (45-117); Bilirubin,Total 0.9 mg/dl (0.2-1); Globulin 4.1 gm/dl (2.5-4.0); Total Protein 7.6 gm/dl (6.4-8.2); Troponin I < 0.015 ng/ml (0-0.045)
[2020-03-03] MEDS ORDERED: OPTIRAY 320 125ml IV ONE (13:10)
--- NOTE | 2020-03-03 13:42 | CT Scan Report ---
CT ANGIOGRAPHY OF THE CHEST, PULMONARY EMBOLUS PROTOCOL CLINICAL HISTORY: PE, hypoxia COMPARISON STUDY: Chest CT August 29, 2019. TECHNIQUE: Following IV administration of 119 mL of Optiray-320, helical axial images of the chest we re obtained utilizing the pulmonary embolus protocol. Maximal intensity projections and sagittal and coronal reformats were viewed on an independent 3D workstation. IV contrast was administered withou t complication. Automated exposure control was utilized for the study. A dose lowering technique wa s utilized adhering to the principles of ALARA. CT DOSE: 832.47 mGy.cm FINDINGS: No pulmonary emboli are identified. Central pulmonary arteries are dilated. This is unchan ged and suggests pulmonary arterial hypertension. Moderate cardiomegaly is noted. There is no pericar dial effusion. A prominent subcarinal lymph node is similar to prior exam. No suspicious lymphadenopa thy within the chest is noted. There is no pneumothorax. Note is made of a small right pleural effusi on. The attenuation of the effusion measures just above water attenuation. There is no left pleural e ffusion. Stable postoperative findings from left lower lobectomy are noted. Emphysema is present. A 1 .2 cm right upper lobe nodule on image 182 of 286 has increased in size since CT of August 29, 2019. The re is been interval development of a 3.6 cm subpleural airspace opacity within the right upper lobe s anastacia prior exam. Additional scattered bilateral airspace opacities are noted. No acute thoracic spine fracture is noted. Note is made of displaced fractures of the lateral right sixth through ninth ribs which are new since prior exam and appear acute to subacute. There are also nondisplaced fractures o f the posterior right eighth and 10th ribs. IMPRESSION: 1. No pulmonary emboli identified. 2. Increase in size of a 1.2 cm right upper lobe nodule since prior chest CT. This is suspicious for a neoplasm. Pulmonary consultation is recommended. 3. Acute to subacute displaced fractures of the lateral right sixth through ninth ribs and nondisplac ed fractures of the posterior right eighth and 10th ribs. 4. Small right pleural effusion. The appearance favors a simple pleural effusion although a hemothora x could appear similar. Associated right lower lobe opacity favors atelectasis. No pneumothorax. 5. 3.6 cm subpleural airspace opacity within the right upper lobe which favors pneumonia. A pulmonary contusion is considered less likely. ACT 112: Positive. There are findings on this exam that require communication between the performing entity and the patient following Patient Test Result Information Act ([place] Act 112) guidelines. Electronically signed by: Damion Guerrier M.D. 03/03/2020 1:41 PM
[2020-03-03] MEDS ORDERED: cefTRIAXone SODIUM 2,000 MG/70 ML BAG IV STA (13:59)
[2020-03-03] MEDS ORDERED: ACETAMINOPHEN 500 MG TAB PO STA (13:59)
[2020-03-03] MEDS ORDERED: DOXYCYCLINE HYCLATE 100 MG CAP PO STA (13:59)
--- NOTE | 2020-03-03 14:09 | Emergency Department Note ---
Impression & Plan Multiple fractures of ribs of right side, Hypoxia, CAP (community acquired pneumonia), Nodule of right lung ED Provider Note Provider: Luiz Sterling MD DATE OF SERVICE:03/03/2020 CHIEF COMPLAINT: Hypoxia HISTORY OF PRESENT ILLNESS: Patient is a 79-year-old female with a past medical history of hypertension, COPD, prior lung cancer with left lobectomy, and cataract surgery presenting today via ambulance from the [facility] after being found to be hypoxic. Patient had a left eye operated on 2 weeks ago for cataract and they went back for the right eye. Was noted be hypo xic there but proceeded with conscious sedation for cataract surgery. After surgery was still hypoxic even after nebulizer treatment and thus sent here for further evaluation. Patient herself denies significant shortness of breath. Does report a week or 2 ago she did fall and landed on her right flank and has some pain there particular deep breathing. Patient states no strike her head or otherwise injured her self and did not seek care or imaging for this. Patient denies chest pain or abdominal discomfort currently. Patient states he does use some oxygen at night but usually not during the day. Denies sick exposures or recent coronavirus test. REVIEW OF SYSTEMS: A total of 10 review of systems was obtained and negative except as stated above in the HPI. PAST MEDICAL HISTORY: As noted above MEDICATIONS: Reviewed home medication, nightly oxygen use SOCIAL HISTORY: Former smoker, lives at home PHYSICAL EXAM: GENERAL: alert and oriented in no acute distress on stretcher on oxygen with mask in place Head: normocephalic and atraumatic EYES: Patient is in full covered shaded glasses with no active bleeding or significant hemorrhage noted. NECK: Trachea midline. LUNGS: Airway patent. No retractions. Breath sounds diminished in the right base and left lower lung chris. HEART: Regular rate and rhythm. Some right posterior axillary and thoracic tenderness. ABDOMEN: Soft and non-tender, without guarding or rebound. SKIN: Acyanotic, warm, dry, without rashes EXTREMITIES: Without swelling, tenderness or deformity NEUROLOGICAL: No focal deficits. No aphasia. No facial droop or slurred speech. EK bpm sinus rhythm with occasional PVC. Right bundle branch block and left anterior fascicular block are noted. Some anterior T wave inversions are noted. Appears similar to previous from November 29, 2018. LVH changes noted. CONTINUOUS CARDIAC MONITORING: was ordered and showed a heart rate of 82 bpm in sinus rhythm with occasional PVC Patient's laboratory studies and imaging reviewed. Differential includes Reactive airway disease, pneumonia, pneumothorax, COPD, CHF, infections, cardiac ischemia, pulmonary embolism, musculoskeletal, gastrointestinal, as well as other pathologies. IMPRESSION/MEDICAL DECISION MAKING: Patient presents noted to be hypoxic during procedural sedation for cataract surgery today with the patient her self has minimal complaints. Did fall a week to 10 days ago and some tenderness in the right flank concerning for possible traumatic injury. CT was completed here as well as basic labs. Coronavirus testing was negative. Now on 4 L at rest. With exertion desats into the 60s on room air. Normally does not use oxygen during the day. CT without evidence of PE but evidence of multiple right-sided rib fractures likely effusion versus small hemothorax. Given the time course this would not be amenable to drainage if it was a hemothorax. No sign of leukocytosis or fever reported but CT report does show what appears to be a pneumonia in the right upper lobe. Lower suspicion given her lack of significant systemic illness of empyema. Given the time course have a lower suspicion for pulmonary contusion. Did discuss the patient increased nodule concerning for possible neoplasm and she was aware of this and they have been following in the outpatient setting; she is aware and will need to have additional follow-up regarding this. Patient minimal pain at rest except with deep breathing or touching the right chest wall but given some Tylenol here. EKG without that significant changes and troponin is undetectable I doubt acute ACS. I doubt aortic dissection. Patient not strike her head and do not feel we need imaging of her head at this time. Given antibiotics to cover possible pneumonia, IV ceftriaxone and p.o. doxycycline. Discussed with the hospitalist further inpatient care given these findings and her hypoxia. Patient was in agreement this plan. DIAGNOSIS: Pneumonia, hypoxia, fall, multiple rib fractures DISPOSITION: Hospitalist will evaluate Patient was agreeable with this plan. Past Med/Surg History Medical History (Updated 03/03/20 @ 15:02 by Juan Luis Alfaro MD) Acute bronchitis Bifascicular block CHRONIC; DATING BACK TO AT LEAST 03/2015 EKG AT [facility]-F/U PCP Bilateral pneumonia Chronic obstructive pulmonary disease Community acquired pneumonia Diverticular disease HX GERD (gastroesophageal reflux disease) History of pneumonia 12/2017 S/P STEROIDS/ANTIBIOTICS ADMISSION [facility] 11/29/18 X 3 DAYS-IMPROVING Hyperlipidemia Hypertension Obesity Osteoarthritis Pneumonia Pulmonary nodule SOB (shortness of breath) on exertion Ulcer of left lower extremity Wound infection Surgical History History of arthroplasty of left knee History of colonoscopy (12/28/18) Tubular Adenoma History of lobectomy of lung LL LOBECTOMY 2/2 CANCER History of tonsillectomy History of tooth extraction History of total knee replacement LEFT Hx of oophorectomy LEFT Family History Unknown Silicosis Mother Ovarian cancer Social History Smoking Status: Never smoker Second Hand Exposure: No; Hx Alcohol Use: No Hx Substance Use: No Preferred Language: Taiwanese Communication Ability: Effective Visual Impairment: No Limitations Hearing Ability: Normal 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 Beliefs That Will Affect Care: None marital status: Current Living Situation: Spouse current occupational status: retired Feels Safe at Home: Yes Childhood Exposure to Second-Hand Smoke: Yes caffeine: Yes Dental Care, Regularly: Yes Physical Activity Frequency: Does not Exercise Seatbelt Use: always Sunscreen Use: No Assistive Devices: Denture - Upper and Glasses Allergies Allergies Allergy/AdvReac Type Severity Reaction Status Date / Time shellfish derived Allergy Severe HIVES,ANAPH Verified 03/03/20 13:49 YLAXIS Home Meds Home Medications Medication Instructions Recorded Confirmed [place]-3 Fish Oil 1 tab PO QDL 01/16/18 03/03/20 ascorbic acid (vitamin C) [Vitamin 1 g PO QDL 01/16/18 03/03/20 C] aspirin 81 mg PO QDL 01/16/18 03/03/20 cyanocobalamin (vitamin B-12) 1,000 mcg PO QDL 01/16/18 03/03/20 [Vitamin B-12] cholecalciferol (vitamin D3) 25 1,000 units PO QDL cap 10/26/18 03/03/20 mcg (1,000 unit) capsule benazepril 20 mg PO QDL 03/03/20 03/03/20 escitalopram oxalate 15 mg PO QDL 03/03/20 03/03/20 Previous Rx's Medication Instructions Recorded pravastatin 80 mg tablet 80 mg PO QPM #90 tab 02/15/19 montelukast 10 mg tablet 10 mg PO PM #90 tab 07/29/19 albuterol sulfate 90 mcg/actuation 2 puff INHALATION Q4H PRN #18 gm 08/09/19 aerosol inhaler ipratropium 0.5 mg-albuterol 3 mg 3 ml INH Q6H PRN #180 ml 08/30/19 (2.5 mg base)/3 mL nebulization soln fluticasone furoate 100 1 inh INHALATION DAILY #28 ea 11/22/19 mcg-vilanterol 25 mcg/dose inhalation powder amlodipine 10 mg tablet 10 mg PO QDL #90 tab 02/17/20 Results & Data (ED) Vital Signs Vital Signs - 24 hr 03/03/20 11:38 03/03/20 11:45 03/03/20 11:46 Temperature 36.9 C Temperature Source Oral Pulse Rate 80 86 81 Pulse Rate [Apical] 86 Pulse Rate from SpO2 Sensor 82 80 Respiratory Rate 22 20 20 Respiratory Effort / Characteristics Non-Labored Spontaneous Respiratory Depth Normal Respiratory Pattern Regular Blood Pressure 177/87 H 177/87 H Blood Pressure [Right Arm] 177/87 H Blood Pressure Mean 125 117 Blood Pressure Mean [Right Arm] 117 Pulse Oximetry 99 99 99 Oxygen Delivery Method Nasal Cannula Nasal Cannula Nasal Cannula Oxygen Flow Rate 4 4 4 Sepsis Recent Fever Within 48 Hours No Sepsis New/Unexplained Change in Mental Status No Sepsis Action Taken by Nursing No Action Required Oxygen Flow Rate - Titration 4 Pulse Oximetry Post Tiitration 99 03/03/20 12:00 03/03/20 12:04 03/03/20 12:30 Temperature Temperature Source Pulse Rate 87 84 83 Pulse Rate [Apical] Pulse Rate from SpO2 Sensor 90 81 Respiratory Rate 22 20 20 Respiratory Effort / Characteristics Respiratory Depth Respiratory Pattern Blood Pressure 191/99 H 158/78 H Blood Pressure [Right Arm] Blood Pressure Mean 107 92 Blood Pressure Mean [Right Arm] Pulse Oximetry 96 97 97 Oxygen Delivery Method Nasal Cannula Nasal Cannula Oxymask Oxygen Flow Rate 4 4 4 Sepsis Recent Fever Within 48 Hours Sepsis New/Unexplained Change in Mental Status Sepsis Action Taken by Nursing Oxygen Flow Rate - Titration Pulse Oximetry Post Tiitration 03/03/20 13:23 03/03/20 13:30 03/03/20 13:35 Temperature Temperature Source Pulse Rate 104 H 86 79 Pulse Rate [Apical] Pulse Rate from SpO2 Sensor 78 Respiratory Rate 19 24 21 Respiratory Effort / Characteristics Respiratory Depth Respiratory Pattern Blood Pressure 170/91 H Blood Pressure [Right Arm] Blood Pressure Mean 108 Blood Pressure Mean [Right Arm] Pulse Oximetry 95 Oxygen Delivery Method Nasal Cannula Oxygen Flow Rate 4 Sepsis Recent Fever Within 48 Hours Sepsis New/Unexplained Change in Mental Status Sepsis Action Taken by Nursing Oxygen Flow Rate - Titration Pulse Oximetry Post Tiitration 03/03/20 14:00 03/03/20 14:01 03/03/20 14:13 Temperature Temperature Source Pulse Rate 91 H 90 91 H Pulse Rate [Apical] Pulse Rate from SpO2 Sensor 90 94 H 90 Respiratory Rate 24 22 20 Respiratory Effort / Characteristics Respiratory Depth Respiratory Pattern Blood Pressure 188/84 H Blood Pressure [Right Arm] Blood Pressure Mean 90 Blood Pressure Mean [Right Arm] Pulse Oximetry 96 94 96 Oxygen Delivery Method Nasal Cannula Nasal Cannula Nasal Cannula Oxygen Flow Rate 4 4 4 Sepsis Recent Fever Within 48 Hours Sepsis New/Unexplained Change in Mental Status Sepsis Action Taken by Nursing Oxygen Flow Rate - Titration Pulse Oximetry Post Tiitration 03/03/20 14:16 03/03/20 14:30 03/03/20 15:00 Temperature Temperature Source Pulse Rate 82 81 Pulse Rate [Apical] 84 Pulse Rate from SpO2 Sensor 86 79 Respiratory Rate 26 H 20 20 Respiratory Effort / Characteristics Respiratory Depth Respiratory Pattern Blood Pressure 169/103 H 187/89 H Blood Pressure [Right Arm] 188/94 H Blood Pressure Mean 142 121 Blood Pressure Mean [Right Arm] 125 Pulse Oximetry 96 97 96 Oxygen Delivery Method Nasal Cannula Nasal Cannula Nasal Cannula Oxygen Flow Rate 4 4 4 Sepsis Recent Fever Within 48 Hours Sepsis New/Unexplained Change in Mental Status Sepsis Action Taken by Nursing Oxygen Flow Rate - Titration Pulse Oximetry Post Tiitration 03/03/20 15:30 Temperature Temperature Source Pulse Rate 79 Pulse Rate [Apical] Pulse Rate from SpO2 Sensor Respiratory Rate 16 Respiratory Effort / Characteristics Respiratory Depth Respiratory Pattern Blood Pressure 176/96 H Blood Pressure [Right Arm] Blood Pressure Mean 122 Blood Pressure Mean [Right Arm] Pulse Oximetry 98 Oxygen Delivery Method Nasal Cannula Oxygen Flow Rate 4 Sepsis Recent Fever Within 48 Hours Sepsis New/Unexplained Change in Mental Status Sepsis Action Taken by Nursing Oxygen Flow Rate - Titration Pulse Oximetry Post Tiitration Laboratory Data Result diagrams: 03/03/20 12:17 03/03/20 12:17 Lab Results 03/03/20 03/03/20 03/03/20 Range/Units 12:10 12:10 12:17 WBC 10.15 (4.8-10.8) K/uL RBC 5.02 (4.2-5.4) M/uL Hgb 15.5 (12.0-16.0) g/dL Hct 50.2 H (37-47) % MCV 100.0 (80-100) fL MCH 30.9 (25-34) pg MCHC 30.9 L (32-36) g/dL RDW Std Deviation 57.1 H (36.4-46.3) fL RDW Coeff of Mariusz 15.5 H (11.5-14.5) % Plt Count 185 (130-400) K/uL MPV 12.4 H (7.4-10.4) fL Immature Gran % (Auto) 0.2 % Neut % (Auto) 76.3 % Lymph % (Auto) 11.9 % Sharp % (Auto) 10.3 % Eos % (Auto) 1.0 % Baso % (Auto) 0.3 % Neut # (Auto) 7.74 H (1.4-6.5) K/uL Lymph # (Auto) 1.21 (1.2-3.4) K/uL Sharp # (Auto) 1.05 H (0.11-0.59) K/uL Eos # (Auto) 0.10 (0-0.5) K/uL Baso # (Auto) 0.03 (0-0.2) K/uL Immature Gran # (Auto) 0.02 (0.00-0.02) K/uL PT (9.0-12.0) Seconds INR (0.9-1.1) APTT (21.0-31.0) Seconds PTT Ratio Sodium (136-145) mmol/L Potassium (3.5-5.1) mmol/L Chloride (98-107) mmol/L Carbon Dioxide (21-32) mmol/L Anion Gap (3-11) BUN (7-18) mg/dl Creatinine (0.6-1.2) mg/dl Est Cr Clr Drug Dosing ml/min Est GFR ( Amer) Est GFR (Non-Af Amer) BUN/Creatinine Ratio (10-20) Glucose (70-99) mg/dl Calcium (8.5-10.1) mg/dl Magnesium (1.8-2.4) mg/dl Total Bilirubin (0.2-1) mg/dl AST (15-37) U/L ALT (12-78) U/L Alkaline Phosphatase (45-117) U/L Troponin I (0-0.045) ng/ml Total Protein (6.4-8.2) gm/dl Albumin (3.4-5.0) gm/dl Globulin (2.5-4.0) gm/dl Albumin/Globulin Ratio (0.9-2) COVID-19 Eval [facility] SARS-CoV-2, RNA, NAAT NEGATIVE (NEGATIVE) 03/03/20 03/03/20 Range/Units 12:17 12:17 WBC (4.8-10.8) K/uL RBC (4.2-5.4) M/uL Hgb (12.0-16.0) g/dL Hct (37-47) % MCV (80-100) fL MCH (25-34) pg MCHC (32-36) g/dL RDW Std Deviation (36.4-46.3) fL RDW Coeff of Mariusz (11.5-14.5) % Plt Count (130-400) K/uL MPV (7.4-10.4) fL Immature Gran % (Auto) % Neut % (Auto) % Lymph % (Auto) % Sharp % (Auto) % Eos % (Auto) % Baso % (Auto) % Neut # (Auto) (1.4-6.5) K/uL Lymph # (Auto) (1.2-3.4) K/uL Sharp # (Auto) (0.11-0.59) K/uL Eos # (Auto) (0-0.5) K/uL Baso # (Auto) (0-0.2) K/uL Immature Gran # (Auto) (0.00-0.02) K/uL PT 10.9 (9.0-12.0) Seconds INR 1.0 (0.9-1.1) APTT 29.3 (21.0-31.0) Seconds PTT Ratio 1.1 Sodium 138 (136-145) mmol/L Potassium 3.5 (3.5-5.1) mmol/L Chloride 100 (98-107) mmol/L Carbon Dioxide 36 H (21-32) mmol/L Anion Gap 2.0 L (3-11) BUN 11 (7-18) mg/dl Creatinine 0.54 L (0.6-1.2) mg/dl Est Cr Clr Drug Dosing 105.1 ml/min Est GFR ( Amer) 104.8 Est GFR (Non-Af Amer) 90.4 BUN/Creatinine Ratio 20.8 H (10-20) Glucose 119 H (70-99) mg/dl Calcium 8.7 (8.5-10.1) mg/dl Magnesium 2.3 (1.8-2.4) mg/dl Total Bilirubin 0.9 (0.2-1) mg/dl AST 5 L (15-37) U/L ALT 13 (12-78) U/L Alkaline Phosphatase 100 (45-117) U/L Troponin I < 0.015 (0-0.045) ng/ml Total Protein 7.6 (6.4-8.2) gm/dl Albumin 3.5 (3.4-5.0) gm/dl Globulin 4.1 H (2.5-4.0) gm/dl Albumin/Globulin Ratio 0.9 (0.9-2) COVID-19 Eval Order SARS-CoV-2, RNA, NAAT (NEGATIVE) Administered Medications Discontinued Medications Acetaminophen (Acetaminophen 500 Mg Tab) 1,000 mg PO NOW STA Stop: 03/03/20 14:00 Last Admin: 03/03/20 14:13 Dose: 1,000 mg Documented by: [id number] Amlodipine Besylate (Amlodipine Besylate 5 Mg Tab) 10 mg PO NOW STA Stop: 03/03/20 14:51 Last Admin: 03/03/20 15:29 Dose: 10 mg Documented by: [id number] Doxycycline Hyclate (Doxycycline Hyclate 100 Mg Cap) 100 mg PO NOW STA Stop: 03/03/20 14:00 Last Admin: 03/03/20 14:13 Dose: 100 mg Documented by: [id number] Enalapril Maleate (Enalapril Maleate 10 Mg Tab) 20 mg PO ONE STA Stop: 03/03/20 14:58 Last Admin: 03/03/20 15:28 Dose: 20 mg Documented by: [id number] Escitalopram Oxalate (Escitalopram Oxalate 10 Mg Tab) 15 mg PO ONE STA Stop: 03/03/20 14:58 Last Admin: 03/03/20 15:27 Dose: 15 mg Documented by: [id number] Ceftriaxone Sodium (Rocephin) 2,000 mg in 70 mls @ 140 mls/hr IV NOW STA Stop: 03/03/20 14:28 Last Infusion: 03/03/20 15:30 Dose: 0 mls/hr Documented by: [id number] Admin: 03/03/20 14:13 Dose: 140 mls/hr Documented by: [id number] Ioversol (Optiray 320 125ml) 119 ml IV ONCE ONE Stop: 03/03/20 13:11 Last Admin: 03/03/20 13:10 Dose: 119 ml Documented by: [id number] Discharge Plan Visit Data Chief Complaint: Shortness of Breath/Dyspnea Stated Complaint: hypoxia ED Provider: Luiz Sterling Discharge Problem: Multiple fractures of ribs of right side, Hypoxia, CAP (community acquired pneumonia), Nodule of right lung Patient Disposition: Being Evaluated by Hospitalist Discharge Instructions [place]/Other Patient Handouts: 2019-nCoV Forms Stand Alone Forms: My [facility] Prescriptions Prescriptions: No Action pravastatin 80 mg tablet 80 mg PO QPM Qty: 90 RF: 3 montelukast 10 mg tablet 10 mg PO PM Qty: 90 RF: 3 albuterol sulfate [Ventolin HFA] 90 mcg/actuation HFA aerosol inhaler 2 puff INHALATION Q4H PRN (Reason: Wheezing) Qty: 18 RF: 11 ipratropium-albuterol 0.5 mg-3 mg(2.5 mg base)/3 mL solution for nebulization 3 ml INH Q6H PRN (Reason: wheezing) Qty: 180 RF: 2 Breo Ellipta 100-25 mcg/dose blister with device 1 inh inhalation DAILY Qty: 28 RF: 3 amlodipine 10 mg tablet 10 mg PO QDL Qty: 90 RF: 1 cholecalciferol (vitamin D3) 1,000 unit capsule 1,000 units PO QDL RF: 0 ascorbic acid (vitamin C) [Vitamin C] 1,000 mg Tablet 1 g PO QDL RF: 0 aspirin 81 mg Tablet,Delayed Release (Dr/Ec) 81 mg PO QDL RF: 0 [place]-3 Fish Oil 300-1,000 mg Capsule 1 tab PO QDL RF: 0 cyanocobalamin (vitamin B-12) [Vitamin B-12] 1,000 mcg Tablet 1,000 mcg PO QDL RF: 0 benazepril 20 mg tablet 20 mg PO QDL RF: 0 escitalopram oxalate 10 mg tablet 15 mg PO QDL RF: 0 Referrals Referrals: Killian Lovelace MD [Primary Care Provider] - Discharge Problem: Multiple fractures of ribs of right side Qualifiers: Encounter type: initial encounter Fracture type: closed Qualified Code(s): S22.41XA - Multiple fractures of ribs, right side, initial encounter for closed fracture CAP (community acquired pneumonia) Qualifiers: Laterality: right Lung location: upper lobe of lung Qualified Code(s): J18.9 - Pneumonia, unspecified organism
--- NOTE | 2020-03-03 14:40 | History & Physical Report ---
Date of Service March 03, 2020 Assessment & Plan (1) CAP (community acquired pneumonia): Does not appear to be postobstructive from mass. Likely precipitated due to fall with rib fractures and subsequently poor inspiratory effort. Continue ceftriaxone and doxycycline (2) Multiple fractures of ribs of right side: Subacute from prior fall. Incentive spirometry. (3) Pleural effusion, right: ?Secondary to rib fractures versus lung cancer versus pneumonia. Does not appear to be sufficient size for thoracocentesis. Consult pulmonology (4) Hypoxia: No respiratory failure. Secondary to multiple etiologies as above. No COPD exacerbation suspected. SARS-CoV-2 PCR negative Aim O2 sats > 94% (5) Nodule of right lung: Increased since CT 6 months previously. Consult pulmonology. (6) History of lung cancer: S/p left upper lobectomy 01/2010 (7) COPD (chronic obstructive pulmonary disease): No acute exacerbation. Continue Breo Ellipta or hospital formulary equivalent. (8) Depression: Continue Lexapro 15 mg p.o. daily (9) Hypertension: Continue usual outpatient medication with Benzapril 20 mg p.o. daily, amlodipine 10 mg p.o. daily (10) Nocturnal hypoxia: 3L O2 at night. (11) DVT prophylaxis: SCDs Admission and Anticipated Discharge Date Admission Date: 03/03/2020 History of Present Illness Chief Complaint: Hypoxia Primary Care Provider: Killian Lovelace MD Anita Tavarez is a 79-year-old female with history of lung cancer who presents to the ER with hypoxia after her cataract operation earlier today. She usually has nocturnal hypoxia and uses 3L oxygen at night but not during the day. Despite hypoxia she underwent her right cataract operation today under sedation. She received a nebulizer treatment post operatively which she reports helped. This is on a background of falling 2 weeks ago onto her right side. She did not seek healthcare advice after this fall despite having right sided pain worse on taking a deep breath and on palpation. She has been treating this herself with ibuprofen and acetaminophen at home and it has been slowly improving. She denies any cough, wheezing, fever, chills, loss of taste or smell, diarrhea, abdominal pain or headache. No known COVID-19 exposure. She reports this does not feel similar to prior COPD exacerbation she has had in the past. In the ER CT for PE showed no pulmonary emboli but was concerning for an increase size of a nodule (previously under surveillance by her maintenance representative), acute to subacute 6th-9th rib fractures and associated right lower lobe atelectasis and 3.6cm subpleural airspace opacity within the right upper lobe that favors pneumonia. She was started on ceftriaxone and doxycycline for pneumonia and referred to medicine for admission and further management of hypoxia and community acquired pneumonia. Allergies Allergy/AdvReac Type Severity Reaction Status Date / Time shellfish derived Allergy Severe HIVES,ANAPH Verified 03/03/20 13:49 YLAXIS Home Medications Medication Instructions Recorded Confirmed Type [place]-3 Fish Oil 1 tab PO QDL 01/16/18 03/03/20 History ascorbic acid (vitamin C) [Vitamin 1 g PO QDL 01/16/18 03/03/20 History C] aspirin 81 mg PO QDL 01/16/18 03/03/20 History cyanocobalamin (vitamin B-12) 1,000 mcg PO QDL 01/16/18 03/03/20 History [Vitamin B-12] cholecalciferol (vitamin D3) 25 1,000 units PO QDL cap 10/26/18 03/03/20 History mcg (1,000 unit) capsule pravastatin 80 mg tablet 80 mg PO QPM #90 tab 02/15/19 03/03/20 Rx montelukast 10 mg tablet 10 mg PO PM #90 tab 07/29/19 03/03/20 Rx albuterol sulfate 90 mcg/actuation 2 puff INHALATION Q4H PRN #18 gm 08/09/19 03/03/20 Rx aerosol inhaler ipratropium 0.5 mg-albuterol 3 mg 3 ml INH Q6H PRN #180 ml 08/30/19 03/03/20 Rx (2.5 mg base)/3 mL nebulization soln fluticasone furoate 100 1 inh INHALATION DAILY #28 ea 11/22/19 03/03/20 Rx mcg-vilanterol 25 mcg/dose inhalation powder amlodipine 10 mg tablet 10 mg PO QDL #90 tab 02/17/20 03/03/20 Rx benazepril 20 mg PO QDL 03/03/20 03/03/20 History escitalopram oxalate 15 mg PO QDL 03/03/20 03/03/20 History Past Med/Surg History Medical History (Updated 03/04/20 @ 06:55 by Juan Luis Alfaro MD) Acute bronchitis Bifascicular block CHRONIC; DATING BACK TO AT LEAST 03/2015 EKG AT [facility]-F/U PCP Bilateral pneumonia Chronic obstructive pulmonary disease Community acquired pneumonia Diverticular disease HX GERD (gastroesophageal reflux disease) History of pneumonia 12/2017 S/P STEROIDS/ANTIBIOTICS ADMISSION [facility] 11/29/18 X 3 DAYS-IMPROVING Hyperlipidemia Hypertension Obesity Osteoarthritis Pneumonia Pulmonary nodule SOB (shortness of breath) on exertion Ulcer of left lower extremity Wound infection Surgical History History of arthroplasty of left knee History of colonoscopy (12/28/18) Tubular Adenoma History of lobectomy of lung LL LOBECTOMY 2/2 CANCER History of tonsillectomy History of tooth extraction History of total knee replacement LEFT Hx of oophorectomy LEFT Family History Unknown Silicosis Mother Ovarian cancer Social History Smoking Status: Never smoker Second Hand Exposure: No; Do You Dip or Chew Tobacco: No; Hx Alcohol Use: No Hx Substance Use: No Preferred Language: Turkmen Communication Ability: Effective Visual Impairment: No Limitations Hearing Ability: Normal Aerodynamicist Required: No Beliefs That Will Affect Care: None marital status: Current Living Situation: Spouse current occupational status: retired Other Information That Helps Us Care for You: No Feels Safe at Home: Yes Safety Concerns: Feels Safe At This Time Childhood Exposure to Second-Hand Smoke: Yes caffeine: Yes Dental Care, Regularly: Yes Physical Activity Frequency: Does not Exercise Seatbelt Use: always Sunscreen Use: No Assistive Devices: Oxygen - Continuous and Walker Assistive Devices Comment: lower partials Review of Systems Review of Systems: All systems reviewed & are unremarkable except as noted in HPI & below Physical Exam Constitutional: well developed and well nourished; no acute distress Eyes: + anicteric sclerae and + abnormal pupil size (right pupil dilated) ENMT: external ear and nose normal, oropharynx normal Neck: trachea midline Respiratory: Auscultation: + diminished lung sounds (Right sided) and + crackles (Bibasal R > L) Cardiovascular: RRR, no murmur, no edema Gastrointestinal (Abdomen): normal bowel sounds, soft, nontender, no hepatosplenomegaly Musculoskeletal: no cyanosis or clubbing, extremities motor strength 5/5 Skin: no rashes, warm and dry Neurologic: moves all extremities and awake; not confused Psychiatric: A+Ox3, euthymic affect Lymphatic: no cervical or axillary lymphadenopathy Results & Data Results & Data ([facility]) Vital Signs (Past 12 Hours) Vital Signs Temp Pulse Pulse Resp BP BP Pulse Ox 03/03/20 14:16 84 26 H 188/94 H 96 03/03/20 14:13 91 H 20 188/84 H 96 03/03/20 14:01 90 22 94 03/03/20 14:00 91 H 24 96 03/03/20 13:35 79 21 170/91 H 95 03/03/20 13:30 86 24 03/03/20 13:23 104 H 19 03/03/20 12:30 83 20 158/78 H 97 03/03/20 12:04 84 20 97 03/03/20 12:00 87 22 191/99 H 96 03/03/20 11:46 81 20 99 03/03/20 11:45 36.9 C 86 86 20 177/87 H 177/87 H 99 03/03/20 11:38 80 22 177/[address] ANGIOGRAPHY OF THE CHEST, PULMONARY EMBOLUS PROTOCOL IMPRESSION: 1. No pulmonary emboli identified. 2. Increase in size of a 1.2 cm right upper lobe nodule since prior chest CT. This is suspicious for a neoplasm. Pulmonary consultation is recommended. 3. Acute to subacute displaced fractures of the lateral right sixth through ninth ribs and nondisplaced fractures of the posterior right eighth and 10th ribs. 4. Small right pleural effusion. The appearance favors a simple pleural effusion although a hemothorax could appear similar. Associated right lower lobe opacity favors atelectasis. No pneumothorax. 5. 3.6 cm subpleural airspace opacity within the right upper lobe which favors pneumonia. A pulmonary contusion is considered less likely. Medications Administered ER medications given: Ceftriaxone 2 g IV Doxycycline 100 mg p.o. Acetaminophen 1g p.o. ECG Indication: SOB/dyspnea Rate (beats per minute): 87 Findings: + LAFB, + PVC (x1) and + RBBB Comparison ECG Date: from (November 29, 2018) Change: no significant change Code Status & VTE Plan Code Status Full VTE Prophylaxis Plan VTE Prophylaxis will be ordered: Yes PG Care Time/CCT Total # of Minutes Spent Total Time Spent with Patient: Total time spent is greater than 50% in coordination of care (as documented) at patient's floor/unit and/or counseling patient: Coding Level of Care Code 03963 Initial Inpt Care Lvl 3 Diagnoses CAP (community acquired pneumonia) J18.9 Laterality: right Lung location: upper lobe of lung Multiple fractures of ribs of right side S22.41XA Encounter type: initial encounter Fracture type: closed Pleural effusion, right J90 Hypoxia R09.02 Nodule of right lung R91.1 History of lung cancer Z85.118 COPD (chronic obstructive pulmonary disease) J44.9 COPD type: unspecified COPD Depression F32.9 Depression Type: reactive depression Hypertension I10 Hypertension type: essential hypertension Nocturnal hypoxia G47.34 DVT prophylaxis Z29.9 (1) Multiple fractures of ribs of right side Encounter type: initial encounter Fracture type: closed Qualified Code(s): S22.41XA - Multiple fractures of ribs, right side, initial encounter for closed fracture (2) Depression Depression Type: reactive depression Qualified Code(s): F32.9 - Major depressive disorder, single episode, unspecified (3) CAP (community acquired pneumonia) Laterality: right Lung location: upper lobe of lung Qualified Code(s): J18.9 - Pneumonia, unspecified organism (4) COPD (chronic obstructive pulmonary disease) COPD type: unspecified COPD Qualified Code(s): J44.9 - Chronic obstructive pulmonary disease, unspecified (5) Hypertension Hypertension type: essential hypertension Qualified Code(s): I10 - Essential (primary) hypertension
[2020-03-03] MEDS ORDERED: amLODIPine BESYLATE 5 MG TAB PO STA (14:50)
[2020-03-03] MEDS ORDERED: ESCITALOPRAM OXALATE 10 MG TAB PO STA (14:57)
[2020-03-03] MEDS ORDERED: ENALAPRIL MALEATE 10 MG TAB PO STA (14:57)
--- NOTE | 2020-03-03 15:28 | Electrocardiogram Report ---
Test Reason : Blood Pressure : / mmHG Vent. Rate : 087 BPM Atrial Rate : 087 BPM P-R Int : 178 ms QRS Dur : 172 ms QT Int : 438 ms P-R-T Axes : 039 -76 028 degrees QTc Int : 527 ms Sinus rhythm with occasional Premature ventricular complexes Possible Left atrial enlargement Right bundle branch block Left anterior fascicular block Bifascicular block Left ventricular hypertrophy Abnormal ECG When compared with ECG of 29-NOV-2018 17:09, Premature ventricular complexes are now Present Nonspecific T wave abnormality has replaced inverted T waves in Lateral leads Confirmed by Serafin Miller ([id number]) on 03/03/2020 3:28:37 PM Referred By: Confirmed By:Serafin Miller
[2020-03-03] MEDS ORDERED: BROMFENAC~ORDER AWAITING ACTION SCH (19:00)
[2020-03-03] MEDS: PRED OPR SCH ×2 (19:42→21:56)
[2020-03-03] MEDS: [UNRECOGNIZED DRUG - OTHER] OPR SCH ×2 (19:42→21:56)
[2020-03-03] MEDS: BROMFENAC OPR SCH ×2 (19:42→21:56)
[2020-03-03] MEDS: PRAVASTATIN SOD 40 MG TAB PO SCH (20:30)
[2020-03-03] MEDS: MONTELUKAST SODIUM 10 MG TABLET PO SCH (20:30)
[2020-03-03] MEDS: DOCUSATE SODIUM 100 MG CAP PO SCH (20:56)
[2020-03-03] MEDS: IBUPROFEN 200 MG TAB PO PRN (20:56)
[2020-03-04 06:36] LABS: Basophils # (auto) 0.04 K/uL (0-0.2); Basophils % (auto) 0.5 %; Hematocrit (blood only) 49.3 % (37-47); Hemoglobin 14.9 g/dL (12.0-16.0); Immature Granulocytes # (auto) 0.01 K/uL (0.00-0.02); Immature Granulocytes % (auto) 0.1 %; Lymphocytes # (auto) 2.02 K/uL (1.2-3.4); Lymphocytes % (auto) 24.4 %; Mean Corpuscular Hemoglobin 30.5 pg (25-34); Mean Corpuscular Hgb Conc 30.2 g/dL (32-36); Mean Corpuscular Volume 100.8 fL (80-100); Mean Platelet Volume 12.4 fL (7.4-10.4); Monocytes # (auto) 0.86 K/uL (0.11-0.59); Monocytes % (auto) 10.4 %; Neutrophils # (auto) 5.36 K/uL (1.4-6.5); Neutrophils % (auto) 64.6 %; Platelet Count 175 K/uL (130-400); RDW Coefficient of Variation 15.5 % (11.5-14.5); RDW Standard Deviation 57.7 fL (36.4-46.3); Red Blood Count 4.89 M/uL (4.2-5.4); White Blood Count 8.29 K/uL (4.8-10.8)
[2020-03-04 07:05] LABS: BUN Creatinine Ratio 28.9 (10-20); Calcium 8.9 mg/dl (8.5-10.1); Creatinine Clr Calc Pharmacy 103.6 ml/min; Est GFR (African American) 104.8; Est GFR (Non-African American) 90.4; Potassium 4.1 mmol/L (3.5-5.1)
[2020-03-04] MEDS: DOCUSATE SODIUM 100 MG CAP PO SCH ×2 (08:33→17:50)
[2020-03-04] MEDS: FLUTICASONE/VILANTEROL 100/25MCG 14 PUFFS/INHALER INH SCH (08:33)
[2020-03-04] MEDS: DOXYCYCLINE HYCLATE 100 MG CAP PO SCH ×2 (08:33→20:25)
--- NOTE | 2020-03-04 09:35 | Pulmonary Consultation ---
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 She was also noted to have subacute rib fractures (6 through 9 laterally and 8 through 10 posteriorly) and a very small right-sided pleural effusion. There is also an opacity within the right upper lobe which may represent pneumonia or could represent pulmonary contusion. Recommendations: 1. Pulmonary nodule: The nodule appears enlarged on the current film. This is not amenable to bronchoscopy as it is small and there does not appear to be an airway leading to it. Would recommend she follow-up with Dr. Dior in the outpatient setting and consider PET scanning and additional work-up. Percutaneous biopsy would also be recommended. Consideration for referral to radiation therapy if adenocarcinoma is proven is likely. It is likely that this is a new primary rather than metastatic focus given the 10-year interval between her initial cancer and this nodule. 2. Abnormal CT scan: Patient does have an airspace opacity laterally on the right side which could represent pulmonary contusion or infection. Her white blood cell count is normal and she is not been febrile. She is not coughing up purulent phlegm. Procalcitonin was not checked. Patient is currently on Rocephin and doxycycline which seems reasonable for possible pneumonia. 3. Hypoxemia: Suspect related to atelectasis due to inability to take a deep breath, contusion/pneumonia, and underlying COPD. Continue oxygen titrated to keep saturations at or above 88%. Incentive spirometry recommended. 4. Multiple rib fractures: Aggressive pain management is recommended to allow f or aggressive pulmonary toilet. Could consider topical interventions such as lidocaine patch. If this is ineffectual, would have a low threshold for consulting the acute pain service to assist with management. Management of the patient's additional medical issues is deferred to the admitting hospitalist service. She appears relatively stable currently and if pain control can be achieved and the patient can achieve pulmonary toilet, she can likely be dismissed to the hospital with outpatient follow-up with Dr. Dior. History of Present Illness Attending Physician: Cuco Lima History of Present Illness Asked by hospitalist to evaluate this patient with enlarging pulmonary nodule. History is obtained from review electronic medical record as well as discussion with the patient the bedside. Patient is a 79-year-old female who is followed by Dr. Dior in the outpatient setting. She had a history of adenocarcinoma and is status post left upper lobectomy 10 years ago. She did not receive adjuvant chemo or radiation therapy. She has pulmonary nodules and has been followed serially by Dr. Dior with serial CT scans. The patient did sustain a fall about 10 days ago and had some trauma to her thorax. She did not seek medical attention at that time. The patient went for a cataract operation yesterday. She does use supplemental oxygen at night but does not use supplemental oxygen during the day. She was noted to be hypoxemic and was given supplemental oxygen and completed the cataract procedure. Due to her persistent hypoxemia after the procedure was completed she was referred to the emergency room. She does not report any coughing, sputum production, fevers, chills, or night sweats. She recently was placed on Breo but she has not noted any wheezing. Allergies Allergy/AdvReac Type Severity Reaction Status Date / Time shellfish derived Allergy Severe HIVES,ANAPH Verified 03/03/20 13:49 YLAXIS Home Medications Medication Instructions Recorded Confirmed Type [place]-3 Fish Oil 1 tab PO QDL 01/16/18 03/03/20 History ascorbic acid (vitamin C) [Vitamin 1 g PO QDL 01/16/18 03/03/20 History C] aspirin 81 mg PO QDL 01/16/18 03/03/20 History cyanocobalamin (vitamin B-12) 1,000 mcg PO QDL 01/16/18 03/03/20 History [Vitamin B-12] cholecalciferol (vitamin D3) 25 1,000 units PO QDL cap 10/26/18 03/03/20 History mcg (1,000 unit) capsule pravastatin 80 mg tablet 80 mg PO QPM #90 tab 02/15/19 03/03/20 Rx montelukast 10 mg tablet 10 mg PO PM #90 tab 07/29/19 03/03/20 Rx albuterol sulfate 90 mcg/actuation 2 puff INHALATION Q4H PRN #18 gm 08/09/19 03/03/20 Rx aerosol inhaler ipratropium 0.5 mg-albuterol 3 mg 3 ml INH Q6H PRN #180 ml 08/30/19 03/03/20 Rx (2.5 mg base)/3 mL nebulization soln fluticasone furoate 100 1 inh INHALATION DAILY #28 ea 11/22/19 03/03/20 Rx mcg-vilanterol 25 mcg/dose inhalation powder amlodipine 10 mg tablet 10 mg PO QDL #90 tab 02/17/20 03/03/20 Rx benazepril 20 mg PO QDL 03/03/20 03/03/20 History escitalopram oxalate 15 mg PO QDL 03/03/20 03/03/20 History Patient History Medical History (Updated 03/04/20 @ 06:55 by Juan Luis Alfaro MD) Acute bronchitis Bifascicular block CHRONIC; DATING BACK TO AT LEAST 03/2015 EKG AT [facility]-F/U PCP Bilateral pneumonia Chronic obstructive pulmonary disease Community acquired pneumonia Diverticular disease HX GERD (gastroesophageal reflux disease) History of pneumonia 12/2017 S/P STEROIDS/ANTIBIOTICS ADMISSION [facility] 11/29/18 X 3 DAYS-IMPROVING Hyperlipidemia Hypertension Obesity Osteoarthritis Pneumonia Pulmonary nodule SOB (shortness of breath) on exertion Ulcer of left lower extremity Wound infection Surgical History History of arthroplasty of left knee History of colonoscopy (12/28/18) Tubular Adenoma History of lobectomy of lung LL LOBECTOMY 2/2 CANCER History of tonsillectomy History of tooth extraction History of total knee replacement LEFT Hx of oophorectomy LEFT Family History Unknown Silicosis Mother Ovarian cancer Social History Smoking Status: Never smoker Second Hand Exposure: No; Do You Dip or Chew Tobacco: No; Hx Alcohol Use: No Hx Substance Use: No Preferred Language: Bulgarian Communication Ability: Effective Visual Impairment: No Limitations Hearing Ability: Normal Nutrition And Dietetics Instructor Required: No Beliefs That Will Affect Care: None marital status: Current Living Situation: Spouse current occupational status: retired Other Information That Helps Us Care for You: No Feels Safe at Home: Yes Safety Concerns: Feels Safe At This Time Childhood Exposure to Second-Hand Smoke: Yes caffeine: Yes Dental Care, Regularly: Yes Physical Activity Frequency: Does not Exercise Seatbelt Use: always Sunscreen Use: No Assistive Devices: Denture - Upper, Denture - Lower and Glasses Assistive Devices Comment: lower partials Review of Systems Review of Systems: All systems reviewed & are unremarkable except as noted in HPI & below Physical Exam Constitutional: well developed and well nourished; no acute distress Eyes: + anicteric sclerae and + abnormal pupil size (right pupil dilated) ENMT: external ear and nose normal, oropharynx normal Neck: trachea midline Respiratory: Auscultation: + diminished lung sounds (Right sided) and + crackles (Bibasal R > L) Cardiovascular: RRR, no murmur, no edema Gastrointestinal (Abdomen): normal bowel sounds, soft, nontender, no hepatosplenomegaly Musculoskeletal: no cyanosis or clubbing, extremities motor strength 5/5 Skin: no rashes, warm and dry Neurologic: moves all extremities and awake; not confused Psychiatric: A+Ox3, euthymic affect Lymphatic: no cervical or axillary lymphadenopathy Results & Data Results & Data ([facility]) Vital Signs (Past 12 Hours) Vital Signs Temp Pulse Resp BP Pulse Ox 03/04/20 07:30 36.5 C 67 18 159/67 H 91 03/03/20 23:01 36.7 C 67 18 148/70 H 95 Laboratory Results 03/04/20 06:18 03/04/20 06:[address] chest reviewed: CT ANGIOGRAPHY OF THE CHEST, PULMONARY EMBOLUS PROTOCOL CLINICAL HISTORY: PE, hypoxia COMPARISON STUDY: Chest CT August 29, 2019. TECHNIQUE: Following IV administration of 119 mL of Optiray-320, helical axial images of the chest were obtained utilizing the pulmonary embolus protocol. Maximal intensity projections and sagittal and coronal reformats were viewed on an independent 3D workstation. IV contrast was administered without complication. Automated exposure control was utilized for the study. A dose lowering technique was utilized adhering to the principles of ALARA. CT DOSE: 832.47 mGy.cm FINDINGS: No pulmonary emboli are identified. Central pulmonary arteries are dilated. This is unchanged and suggests pulmonary arterial hypertension. Moderate cardiomegaly is noted. There is no pericardial effusion. A prominent subcarinal lymph node is similar to prior exam. No suspicious lymphadenopathy within the chest is noted. There is no pneumothorax. Note is made of a small ri ght pleural effusion. The attenuation of the effusion measures just above water attenuation. There is no left pleural effusion. Stable postoperative findings from left lower lobectomy are noted. Emphysema is present. A 1.2 cm right upper lobe nodule on image 182 of 286 has increased in size since CT of August 29, 2019. There is been interval development of a 3.6 cm subpleural airspace opacity within the right upper lobe since prior exam. Additional scattered bilateral airspace opacities are noted. No acute thoracic spine fracture is noted. Note is made of displaced fractures of the lateral right sixth through ninth ribs which are new since prior exam and appear acute to subacute. There are also nondisplaced fractures of the posterior right eighth and 10th ribs. IMPRESSION: 1. No pulmonary emboli identified. 2. Increase in size of a 1.2 cm right upper lobe nodule since prior chest CT. Th is is suspicious for a neoplasm. Pulmonary consultation is recommended. 3. Acute to subacute displaced fractures of the lateral right sixth through ninth ribs and nondisplaced fractures of the posterior right eighth and 10th ribs. 4. Small right pleural effusion. The appearance favors a simple pleural effusion although a hemothorax could appear similar. Associated right lower lobe opacity favors atelectasis. No pneumothorax. 5. 3.6 cm subpleural airspace opacity within the right upper lobe which favors pneumonia. A pulmonary contusion is considered less likely. PG Care Time/CCT Total # of Minutes Spent Total Time Spent with Patient: Total time spent is greater than 50% in coordination of care (as documented) at patient's floor/unit and/or counseling patient: Coding Level of Care Code 20347 Initial Inpt Care Lvl 3 Diagnoses Pleural effusion, right J90 Nocturnal hypoxia G47.34 Multiple fractures of ribs of right side S22.41XA Encounter type: initial encounter Fracture type: closed Nodule of right lung R91.1 Time Spent (min) 45
[2020-03-04] MEDS: CYANOCOBALAMIN 500 MCG TABLET (VITAMIN B-12) PO SCH (11:19)
[2020-03-04] MEDS: ENALAPRIL MALEATE 10 MG TAB PO SCH (11:19)
[2020-03-04] MEDS: OMEGA-3 (PURIFIED FISH OIL) 1 GM CAP PO SCH (11:19)
[2020-03-04] MEDS: ASCORBIC ACID 500 MG TAB PO SCH (11:19)
[2020-03-04] MEDS: CHOLECALCIFEROL 1,000 UNITS 25 MCG TAB PO SCH (11:19)
[2020-03-04] MEDS: ASPIRIN 81 MG ECTAB PO SCH (11:20)
[2020-03-04] MEDS: ESCITALOPRAM OXALATE 10 MG TAB PO SCH (11:20)
[2020-03-04] MEDS: amLODIPine BESYLATE 5 MG TAB PO SCH (11:20)
[2020-03-04] MEDS: cefTRIAXone SODIUM 2,000 MG in DEXTROSE 5% 50 ML IV SCH (13:14)
[2020-03-04] MEDS: IBUPROFEN 200 MG TAB PO PRN (17:49)
[2020-03-04] MEDS: ACETAMINOPHEN 325 MG TAB PO PRN ×2 (19:04→23:20)
[2020-03-04] MEDS: PRAVASTATIN SOD 40 MG TAB PO SCH (20:25)
[2020-03-04] MEDS: MONTELUKAST SODIUM 10 MG TABLET PO SCH (20:25)
--- NOTE | 2020-03-04 22:48 | Hospitalist Progress Note ---
Date of Service March 04, 2020 Assessment & Plan (1) CAP (community acquired pneumonia): Does not appear to be postobstructive from mass. Likely precipitated due to fall with rib fractures and subsequently poor inspiratory effort. Continue ceftriaxone and doxycycline Will place on lidocaine patch in AM to help with deep inspiration to help decrease atelectasis. will continue to monitor. If no signifcant improvement tomorrow, may consider 2 step. (2) Multiple fractures of ribs of right side: Subacute from prior fall. Incentive spirometry. (3) Pleural effusion, right: ?Secondary to rib fractures versus lung cancer versus pneumonia. Does not appear to be sufficient size for thoracocentesis. Consult pulmonology: appreciate input. (4) Hypoxia: No respiratory failure. Secondary to multiple etiologies as above. No COPD exacerbation suspected. SARS-CoV-2 PCR negative Aim O2 sats > 94% (5) Nodule of right lung: Increased since CT 6 months previously. Consult pulmonology. (6) History of lung cancer: S/p left upper lobectomy 01/2010 (7) COPD (chronic obstructive pulmonary disease): No acute exacerbation. Continue Breo Ellipta or hospital formulary equivalent. (8) Depression: Continue Lexapro 15 mg p.o. daily (9) Hypertension: Continue usual outpatient medication with Benzapril 20 mg p.o. daily, amlodipine 10 mg p.o. daily (10) Nocturnal hypoxia: 3L O2 at night. (11) DVT prophylaxis: SCDs Admission and Anticipated Discharge Date Admission Date: March 03, 2020 Subjective Patient reports feeling well. Patient has no new symptoms at this time. She states she has pain when she takes deep breaths. Review of Systems Review of Systems: All systems reviewed & are unremarkable except as noted in HPI & below Physical Exam Physical Exam: Constitutional: well developed and well nourished; no acute distress Eyes: + anicteric sclerae and + abnormal pupil size (right pupil dilated) ENMT: external ear and nose normal, oropharynx normal Neck: trachea midline Respiratory: Auscultation: + crackles (Bibasal R > L) Cardiovascular: RRR, no murmur, no edema Gastrointestinal (Abdomen): normal bowel sounds, soft, nontender, no hepatosplenomegaly Musculoskeletal: no cyanosis or clubbing, extremities motor strength 5/5 Skin: no rashes, warm and dry Neurologic: moves all extremities and awake; not confused Psychiatric: A+Ox3, euthymic affect Lymphatic: no cervical or axillary lymphadenopathy Results & Data Results & Data ([facility]) Vital Signs (Past 12 Hours) Vital Signs Temp Pulse Resp BP Pulse Ox 03/04/20 15:17 36.8 C 71 18 165/76 H 94 PG Care Time/CCT Total # of Minutes Spent Total Time Spent with Patient: Total time spent is greater than 50% in coordination of care (as documented) at patient's floor/unit and/or counseling patient: Coding Level of Care Code 55358 Subseq Hosp Care Lvl 3 Diagnoses CAP (community acquired pneumonia) J18.9 Laterality: right Lung location: upper lobe of lung Multiple fractures of ribs of right side S22.41XA Encounter type: initial encounter Fracture type: closed Pleural effusion, right J90 Hypoxia R09.02 Nodule of right lung R91.1 History of lung cancer Z85.118 COPD (chronic obstructive pulmonary disease) J44.9 COPD type: unspecified COPD Depression F32.9 Depression Type: reactive depression Hypertension I10 Hypertension type: essential hypertension Nocturnal hypoxia G47.34 DVT prophylaxis Z29.9 (1) Multiple fractures of ribs of right side Encounter type: initial encounter Fracture type: closed Qualified Code(s): S22.41XA - Multiple fractures of ribs, right side, initial encounter for closed fracture (2) Depression Depression Type: reactive depression Qualified Code(s): F32.9 - Major depressive disorder, single episode, unspecified (3) CAP (community acquired pneumonia) Laterality: right Lung location: upper lobe of lung Qualified Code(s): J18.9 - Pneumonia, unspecified organism (4) COPD (chronic obstructive pulmonary disease) COPD type: unspecified COPD Qualified Code(s): J44.9 - Chronic obstructive pulmonary disease, unspecified (5) Hypertension Hypertension type: essential hypertension Qualified Code(s): I10 - Essential (primary) hypertension
[2020-03-05] MEDS: IBUPROFEN 200 MG TAB PO PRN (07:50)
[2020-03-05] MEDS ORDERED: LIDOCAINE 5% 1 PATCH TD SCH (09:00)
--- NOTE | 2020-03-05 09:23 | Pulmonology Progress Note ---
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 She was also noted to have subacute rib fractures (6 through 9 laterally and 8 through 10 posteriorly) and a very small right-sided pleural effusion. There is also an opacity within the right upper lobe which may represent pneumonia or could represent pulmonary contusion. Recommendations: 1. Pulmonary nodule: The nodule appears enlarged on the current film. This is not amenable to bronchoscopy as it is small and there does not appear to be an airway leading to it. Would recommend she follow-up with Dr. Dior in the outpatient setting and consider PET scanning and additional work-up. Percutaneous biopsy would also be recommended. Consideration for referral to radiation therapy if adenocarcinoma is proven is likely. It is likely that this is a new primary rather than metastatic focus given the 10-year interval between her initial cancer and this nodule. She reports she is scheduled to follow-up with Dr. Garrett within the next week 2. Abnormal CT scan: Patient does have an airspace opacity laterally on the right side which could represent pulmonary contusion or infection. Her white blood cell count is normal and she is not been febrile. She is not coughing up purulent phlegm. Procalcitonin was not checked. Patient is currently on Ro cephin and doxycycline which seems reasonable for possible pneumonia. Can de- escalate to Ceftin and doxycycline and would complete 5 days of antimicrobial therapy 3. Hypoxemia: Suspect related to atelectasis due to inability to take a deep breath, contusion/pneumonia, and underlying COPD. Continue oxygen titrated to keep saturations at or above 88%. Incentive spirometry recommended. 4. Multiple rib fractures: Aggressive pain management is recommended to allow for aggressive pulmonary toilet. Could consider topical interventions such as lidocaine patch. If this is ineffectual, would have a low threshold for consulting the acute pain service to assist with management. Management of the patient's additional medical issues is deferred to the admitting hospitalist service. She appears relatively stable currently and if pain control can be achieved and the patient can achieve pulmonary toilet, she can likely be dismissed to the hospital with outpatient follow-up with Dr. Dior. We will sign off. Please call us if we can be of additional assistance Admission and Anticipated Discharge Date Admission Date: March 03, 2020 Subjective Patient seen and examined. She is doing well. No complaints. She is up to the chair eating. She is continuing to experience them chest pain but it is reasonably well controlled. She can take a deep breath and cough and expectorate phlegm. Results & Data Results & Data ([facility]) Vital Signs (Past 12 Hours) Vital Signs Temp Pulse Resp BP Pulse Ox 03/05/20 07:15 36.7 C 58 L 16 177/81 H 92 03/05/20 06:39 36.9 C 76 19 185/83 H 95 03/04/20 23:00 37.0 C 72 16 165/81 H 94 Laboratory Results 03/04/20 06:18 03/04/20 06:18 Diagnostic Findings No new imaging PG Care Time/CCT Total # of Minutes Spent Total Time Spent with Patient: Total time spent is greater than 50% in coordination of care (as documented) at patient's floor/unit and/or counseling patient: Coding Level of Care Code 19393 Subseq Hosp Care Lvl 2 Diagnoses Pleural effusion, right J90 Nocturnal hypoxia G47.34 Multiple fractures of ribs of right side S22.41XA Encounter type: initial encounter Fracture type: closed Nodule of right lung R91.1
[2020-03-05] MEDS: FLUTICASONE/VILANTEROL 100/25MCG 14 PUFFS/INHALER INH SCH (09:39)
[2020-03-05] MEDS: PRED OPR SCH (09:40)
[2020-03-05] MEDS: DOXYCYCLINE HYCLATE 100 MG CAP PO SCH (09:40)
[2020-03-05] MEDS: [UNRECOGNIZED DRUG - OTHER] OPR SCH (09:40)
[2020-03-05] MEDS: BROMFENAC OPR SCH (09:40)
[2020-03-05] MEDS: cefTRIAXone SODIUM 2,000 MG in DEXTROSE 5% 50 ML IV SCH (09:40)
[2020-03-05] MEDS: DOCUSATE SODIUM 100 MG CAP PO SCH (09:41)
[2020-03-05] MEDS: ASPIRIN 81 MG ECTAB PO SCH (11:08)
[2020-03-05] MEDS: OMEGA-3 (PURIFIED FISH OIL) 1 GM CAP PO SCH (11:08)
[2020-03-05] MEDS: CHOLECALCIFEROL 1,000 UNITS 25 MCG TAB PO SCH (11:08)
[2020-03-05] MEDS: ENALAPRIL MALEATE 10 MG TAB PO SCH (11:09)
[2020-03-05] MEDS: ASCORBIC ACID 500 MG TAB PO SCH (11:09)
[2020-03-05] MEDS: ESCITALOPRAM OXALATE 10 MG TAB PO SCH (11:09)
[2020-03-05] MEDS: CYANOCOBALAMIN 500 MCG TABLET (VITAMIN B-12) PO SCH (11:10)
[2020-03-05] MEDS: amLODIPine BESYLATE 5 MG TAB PO SCH (11:10)
--- NOTE | 2020-03-05 15:42 | Discharge Summary ---
Date of Service March 05, 2020 Admission HPI Per Admitting Provider Anita Tavarez is a 79-year-old female with history of lung cancer who presents to the ER with hypoxia after her cataract operation earlier today. She usually has nocturnal hypoxia and uses 3L oxygen at night but not during the day. Despite hypoxia she underwent her right cataract operation today under sedation. She received a nebulizer treatment post operatively which she reports helped. This is on a background of falling 2 weeks ago onto her right side. She did not seek healthcare advice after this fall despite having right sided pain worse on taking a deep breath and on palpation. She has been treating this herself with ibuprofen and acetaminophen at home and it has been slowly improving. She denies any cough, wheezing, fever, chills, loss of taste or smell, diarrhea, abdominal pain or headache. No known COVID-19 exposure. She reports this does not feel similar to prior COPD exacerbation she has had in the past. In the ER CT for PE showed no pulmonary emboli but was concerning for an increase size of a nodule (previously under surveillance by her manager technology), acute to subacute 6th-9th rib fractures and associated right lower lobe atelectasis and 3.6cm subpleural airspace opacity within the right upper lobe that favors pneumonia. She was started on ceftriaxone and doxycycline for pneumonia and referred to medicine for admission and further management of hypoxia and community acquired pneumonia. Principal Diagnosis Community of acquired pneumonia Discharge Exam Constitutional: well developed and well nourished; no acute distress Eyes: + anicteric sclerae and + abnormal pupil size (right pupil dilated) ENMT: external ear and nose normal, oropharynx normal Neck: trachea midline Respiratory: Auscultation: + crackles (Bibasal R > L) Cardiovascular: RRR, no murmur, no edema Gastrointestinal (Abdomen): normal bowel sounds, soft, nontender, no hepatosplenomegaly Musculoskeletal: no cyanosis or clubbing, extremities motor strength 5/5 Skin: no rashes, warm and dry Neurologic: moves all extremities and awake; not confused Psychiatric: A+Ox3, euthymic affect Lymphatic: no cervical or axillary lymphadenopathy Discharge Data Allergies Allergy/AdvReac Type Severity Reaction Status Date / Time shellfish derived Allergy Severe HIVES,ANAPH Verified 03/03/20 13:49 YLAXIS Consultations 03/03/20 14:19 ED Decision to Admit Stat 03/03/20 16:27 Consult Pulmonology Routine Ordered Studies 03/03/20 12:45 CT angio chest PE protocol Stat Hospital Course (1) CAP (community acquired pneumonia): Does not appear to be postobstructive from mass. Likely precipitated due to fall with rib fractures and subsequently poor inspiratory effort. Continue ceftriaxone and doxycycline On lidocaine patch in AM to help with deep inspiration to help decrease atelectasis. Her pain is better controlled. will continue to monitor. Patient had a 2 step and required 2 liters on exertion and at rest. (2) Multiple fractures of ribs of right side: Subacute from prior fall. Incentive spirometry. (3) Pleural effusion, right: Secondary to rib fractures versus lung cancer versus pneumonia. Does not appear to be sufficient size for thoracocentesis. Consult pulmonology: appreciate input The nodule appears enlarged on the current film. This is not amenable to bronchoscopy as it is small and there does not appear to be an airway leading to it. Would recommend she follow-up with Dr. Dior in the outpatient setting and consider PET scanning and additional work-up. Percutaneous biopsy would also be recommended. Consideration for referral to radiation therapy if adenocarcinoma is proven is likely. It is likely that this is a new primary rather than metastatic focus given the 10-year interval between her initial cancer and this nodule. She reports she is scheduled to follow-up with Dr. Garrett within the next week (4) Hypoxia: No respiratory failure. Secondary to multiple etiologies as above. No COPD exacerbation suspected. SARS-CoV-2 PCR negative Aim O2 sats > 94% (5) Nodule of right lung: Increased since CT 6 months previously. Consult pulmonology: appreciate input from pulmonary. (6) History of lung cancer: S/p left upper lobectomy 01/2010 (7) COPD (chronic obstructive pulmonary disease): No acute exacerbation. Continue Breo Ellipta or hospital formulary equivalent. (8) Depression: Continue Lexapro 15 mg p.o. daily (9) Hypertension: Continue usual outpatient medication with Benzapril 20 mg p.o. daily, a mlodipine 10 mg p.o. daily (10) Nocturnal hypoxia: 3L O2 at night. (11) DVT prophylaxis: SCDs Total Time Total Time Spent Total Time Spent (In Minutes): 32 Total Time Includes: Examination of the Patient, Discharge Planning and Medication Reconciliation Discharge Plan Discharge Items Patient Disposition: Home - Home Health Services Reason For Visit: HYPOXIA, COMMUNITY-ACQUIRED PNEUMONIA Discharge Diagnosis: Community-acquired Pneumonia Activity: Resume your previous activity Non-emergency contact: Primary Care Provider Call non-emergency contact if: you have any medication questions Follow-up/Referrals: Killian Lovelace MD [Primary Care Provider] - 03/10/20 1:15 pm (APPT WITH [facility]) Diet: Regular Addtl Attending Provider Instructions: You have been hospitalized for an acute medical problem. During your stay at [facility], we have made an effort to correct the problem that brought you to the hospital while keeping you as comfortable as possible. Medications were used to bring your condition under control and your discharge instructions will include directions for any medications you should take after leaving the hospital. Please make sure you see your Primary Care Provider as part of your follow up plan. Pending Studies at Discharge: No Stand-Alone Forms: My [facility], Smoking Cessation Medications and DC Order Prescriptions: New acetaminophen 325 mg Tablet 650 mg PO Q4H PRN (Reason: pain) Qty: 20 RF: 0 doxycycline hyclate 100 mg Capsule 100 mg PO BID Qty: 10 RF: 0 ibuprofen 200 mg Tablet 400 mg PO Q8H PRN (Reason: pain) Qty: 20 RF: 0 lidocaine 5 % Adhesive Patch,Medicated 1 patch transdermal QAM Qty: 7 RF: 0 cefuroxime axetil 500 mg tablet 500 mg PO BID Qty: 10 RF: 0 Continued pravastatin 80 mg tablet 80 mg PO QPM Qty: 90 RF: 3 montelukast 10 mg tablet 10 mg PO PM Qty: 90 RF: 3 albuterol sulfate [Ventolin HFA] 90 mcg/actuation HFA aerosol inhaler 2 puff INHALATION Q4H PRN (Reason: Wheezing) Qty: 18 RF: 11 ipratropium-albuterol 0.5 mg-3 mg(2.5 mg base)/3 mL solution for nebulization 3 ml INH Q6H PRN (Reason: wheezing) Qty: 180 RF: 2 Breo Ellipta 100-25 mcg/dose blister with device 1 inh inhalation DAILY Qty: 28 RF: 3 amlodipine 10 mg tablet 10 mg PO QDL Qty: 90 RF: 1 cholecalciferol (vitamin D3) 1,000 unit capsule 1,000 units PO QDL RF: 0 ascorbic acid (vitamin C) [Vitamin C] 1,000 mg Tablet 1 g PO QDL RF: 0 aspirin 81 mg Tablet,Delayed Release (Dr/Ec) 81 mg PO QDL RF: 0 Lucas-3 Fish Oil 300-1,000 mg Capsule 1 tab PO QDL RF: 0 cyanocobalamin (vitamin B-12) [Vitamin B-12] 1,000 mcg Tablet 1,000 mcg PO QDL RF: 0 benazepril 20 mg tablet 20 mg PO QDL RF: 0 escitalopram oxalate 10 mg tablet 15 mg PO QDL RF: 0 Discharge Orders: Discharge Order (Routine); Ordered 03/05/20 Ordered By: Cuco Lima Admission Data Admit Date/Time: 03/03/20 14:21 Attending Provider: Cuco Lima Admit Provider: Juan Luis Alfaro Primary Care Provider: Killian Lovelace Other Providers: Juan Luis Alfaro ; Riley Martin Other Interventions: Discharge Summary Assessment (RN) Last Done: 03/05/20 14:24 Coding Level of Care Code D/C Day Management >30 mins Diagnoses CAP (community acquired pneumonia) J18.9 Laterality: right Lung location: upper lobe of lung Multiple fractures of ribs of right side S22.41XA Encounter type: initial encounter Fracture type: closed Pleural effusion, right J90 Hypoxia R09.02 Nodule of right lung R91.1 History of lung cancer Z85.118 COPD (chronic obstructive pulmonary disease) J44.9 COPD type: unspecified COPD Depression F32.9 Depression Type: reactive depression Hypertension I10 Hypertension type: essential hypertension Nocturnal hypoxia G47.34 DVT prophylaxis Z29.9 Time Spent (min) 32
== END 2020-03-05 16:12 | disposition home or self-care (01) | DRG 194 ==
LOC: ED 11:32 → SUATTDRO 14:21 → 3W 14:21

== ENCOUNTER 2024-04-22 10:06 | Observation (INO) ==
[2024-04-22] MEDS: EPINEPHrine INJ 1 MG/ML AMP IM STA (10:26)
[2024-04-22] MEDS: ALBUTEROL 0.083% NEBU SOLN 3 ML VIAL INH STA (10:27)
--- NOTE | 2024-04-22 10:27 | Emergency Department Note ---
Impression & Plan Anaphylaxis, Hypoxia, Acute hypotension ED Provider Note NAME: SAGAR ROBLES AGE: 83 SEX: F : 1940 ARRIVES VIA: Walk-In INFORMANT: Patient ED PROVIDER(S): Matt Neri DO CHIEF COMPLAINT: Shortness of breath, trouble breathing, trouble swallowing HPI: Patient is an 83-year-old female with a past medical history of acute on chronic respiratory failure, LVH, COPD who presents to the ER for shortness of breath, trouble swallowing and breathing following taking 4 tablets of amoxicillin. She notes last time she took amoxicillin she had a diffuse rash. She notes that several years since she is taking that. She denies any headache or change in vision. No chest pain. No dysuria, urgency, or frequency. No other exacerbating or remitting factors at this time. ADDITIONAL HISTORY OBTAINED: Per HPI Chronic Medical/Social Conditions Affecting Care: Per HPI PAST MEDICAL HISTORY:See Below PAST SURGICAL HISTORY:See Below FAMILY HISTORY:See Below SOCIAL HISTORY:See Below HOME MEDICATIONS:See Below ALLERGIES:See Below VITALS:See Below PHYSICAL EXAMINATION: GENERAL: Sitting up in bed, alert, well appearing, well nourished, no distress, non-toxic EYE EXAM: normal conjunctiva. OROPHARYNX:mucous membranes are moist NECK: supple, no nuchal rigidity, no adenopathy, non-tender LUNGS: Diminished bilaterally. Normal chest wall mechanics HEART: no murmurs, S1 normal and S2 normal ABDOMEN: abdomen soft, non-tender, normo-active bowel sounds, no masses, no rebound or guarding. SKIN: Erythema throughout the entire body including face chest abdomen arms and legs UPPER EXTREMITIES: upper extremities are grossly normal. LOWER EXTREMITIES: No pitting edema. NEURO EXAM: Normal sensorium, cranial nerves II-XII grossly intact, normal speech, no gross weakness of arms, no gross weakness of legs. MEDICAL DECISION MAKING: Patient is an 83-year-old female who presents ER for the above-stated complaint. Upon arrival she is found to be hypotensive with systolic pressures in the 70s and a pulse ox in the low 80s/70s. She was placed on nonrebreather and taken emergently to a 1. IVs were established and blood work was obtained. Symptoms started following taking amoxicillin which she has had a reaction to before in the past. She feels as though her throat swelling and she cannot breathe. She was given IM epi, IV steroids, Pepcid, fluids and Benadryl. She had resolution of the hypotension and hypoxia. She was on continuous albuterol nebs. Labs showed no significant leukocytosis and a hemoglobin of 17. BMP with LFTs bilirubin was unremarkable. Troponin was negative. Blood pressure stabilized as well as the hypoxia. She felt like she was able to breathe significantly better and she was switched into a regular room following stabilization. She was discussed with the hospitalist for further evaluation management and treatment due to the severity of the anaphylaxis. Consults/Care Managements Discussions: Per [facility] Triage Nursing notes reviewed. Limited review of prior medical records performed Vital Signs: reviewed and remarkable for no significant abnormalities Differential diagnosis: Differential diagnoses includes but is not limited to pneumonia, bronchitis, COPD/Asthma exacerbation, pneumothorax, pulmonary embolism, congestive heart failure, acute coronary syndrome ER treatment provided: See below Diagnostics interpreted by me include EKG and cardiac monitoring as listed below: -Cardiac Monitoring: An order was placed for continuous cardiac monitoring. The monitor shows a rate of 90 with sinus rhythm. -ECG: Sinus rhythm rate 87 Left axis Right bundle branch block QTc 531 -Laboratory studies:Interpreted by me as stated above in MDM and shown below. Imaging studies: Xrays: As interpreted by me: Portable AP upright 1 view of the chest shows no focal infiltrate CTs show: none Procedures:none Critical Care: I have personally spent 45 minutes of critical care time in the direct management of this patient. This includes bedside care, interpretation of diagnostic studies, and testing, discussion with consultants, patient, and family members, and other required patient management activities. This 45 minutes is in excess of all separately billable procedures. 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 Lumbar facet arthropathy Lumbar degenerative disc disease Cervical facet joint syndrome Bilateral sacroiliitis Allergic rhinitis with postnasal drip SOB (shortness of breath) on exertion Chronic respiratory failure with hypoxia Chronic low back pain Spasm of left trapezius muscle Cervical paraspinal muscle spasm Myofascial neck pain Acute on chronic respiratory failure with hypoxemia Multiple pulmonary nodules Ex-smoker LVH (left ventricular hypertrophy) Kidney cysts Hepatic cyst Pancreatic cyst Hypertension (Chronic) Hypoxia (Chronic) COPD (chronic obstructive pulmonary disease) (Chronic) Mixed hyperlipidemia (Chronic) History of lung cancer (Chronic 01/27/10) Adenocarcinoma -bilateral Peripheral neuropathy (Acute) Osteopenia after menopause (Acute) Nocturnal hypoxia Thyroid disease Allergic rhinitis Right carotid bruit RBBB Lower extremity edema PAD (peripheral artery disease) Pre-diabetes Lumbar disc disease Cervical spondylolysis Medical History DVT prophylaxis Supplemental oxygen dependent History of fall History of lung cancer DVT prophylaxis GERD (gastroesophageal reflux disease) Pulmonary nodule Bifascicular block Obesity Osteoarthritis Hypertension Hyperlipidemia Chronic obstructive pulmonary disease Surgical History History of cataract surgery History of lung surgery (06/04/20) History of total knee replacement History of arthroplasty of left knee Hx of oophorectomy History of colonoscopy (12/28/18) History of tooth extraction History of tonsillectomy History of lobectomy of lung (01/27/10) Family History Unknown Silicosis Mother Ovarian cancer Cancer Sister Cancer Breast cancer Grandmother Breast cancer Denies family history of Prostate cancer Diabetes Myocardial infarction Lung cancer Colorectal cancer Stroke Social History Smoking Status: Never smoker Tobacco Type: Cigarettes Age Started Using Tobacco: 19; Age Quit Using Tobacco: 63; packs per day: 0.5; Cigarettes Per Day: 10; Second Hand Exposure: No; Do You Dip or Chew Tobacco: No; Hx Alcohol Use: No Hx Substance Use: No Preferred Language: Japanese Communication Ability: Effective Visual Impairment: Limited Hearing Ability: Normal Trading Assistant Required: No Beliefs That Will Affect Care: None marital status: Current Living Situation: Spouse current occupational status: retired current occupation: used to work for [employer] How many Children do You have: 1 Feels Safe at Home: Yes Childhood Exposure to Second-Hand Smoke: Yes Diet: regular caffeine: Yes Dental Care, Regularly: Yes Physical Activity Frequency: Does not Exercise Seatbelt Use: always Sunscreen Use: No Assistive Devices: Oxygen - Continuous and Walker Allergies Allergies Allergy/AdvReac Type Severity Reaction Status Date / Time shellfish derived Allergy Severe HIVES, Verified 04/22/24 12:47 SWOLLEN LIP , ANAPHYLAXIS Penicillins Allergy Unknown Unknonw - Unverified 04/22/24 12:47 On file w/ [facility] augmentin AdvReac Unknown Itchy Skin Uncoded 04/22/24 12:47 Home Meds Home Medications Medication Instructions Recorded Confirmed ascorbic acid (vitamin C) 1,000 mg 1 g PO QDL 01/16/18 04/22/24 tablet (Vitamin C) cyanocobalamin (vitamin B-12) 1,000 mcg PO QDL 01/16/18 04/22/24 1,000 mcg tablet (Vitamin B-12) omega-3s 300 [id number] 1 tab PO QDL 01/16/18 04/22/24 [id number] oil 1,000 mg capsule ([place]-3 Fish Oil) cholecalciferol (vitamin D3) 25 1,000 units PO QDL 10/26/18 04/22/24 mcg (1,000 unit) capsule aspirin 81 mg tablet,delayed 81 mg PO DAILY 03/15/23 04/22/24 release celecoxib 200 mg capsule (Celebrex) 200 mg PO BID 02/13/24 04/22/24 benazepril 40 mg tablet 0 mg PO DAILY 04/22/24 04/22/24 fluticasone propionate 50 1 spray intranasal BID 04/22/24 04/22/24 mcg/actuation nasal spray,suspension hydrochlorothiazide 25 mg tablet 25 mg PO DAILY 04/22/24 04/22/24 ipratropium bromide 21 mcg (0.03 1 - 2 spray intranasal UD 04/22/24 04/22/24 %) nasal spray levocetirizine 5 mg tablet 5 mg PO HS 04/22/24 04/22/24 montelukast 10 mg tablet 0 mg PO DAILY 04/22/24 04/22/24 Previous Rx's Medication Instructions Recorded acetaminophen 325 mg tablet 650 mg (2 x 325 mg) PO Q4H PRN 03/05/20 pain #20 tabs amlodipine 10 mg tablet 10 mg PO QDL #90 tabs 07/24/23 escitalopram oxalate 10 mg tablet 15 mg (1.5 x 10 mg) PO DAILY #135 10/17/23 tabs albuterol sulfate 90 mcg/actuation 2 puff inhalation Q4H PRN Wheezing 11/30/23 aerosol inhaler (Ventolin HFA) #18 grams fluticasone furoate 200 1 inh inhalation DAILY #60 ea 11/30/23 mcg-vilanterol 25 mcg/dose inhalation powder (Breo Ellipta) tiotropium bromide 2.5 2 puff inhalation DAILY #4 grams 11/30/23 mcg/actuation mist for inhalation (Spiriva Respimat) Portable Oxygen #1 ea 02/14/24 dupilumab 300 mg/2 mL subcutaneous 300 mg (2 mL) subcut Q14D #2 mL 02/16/24 pen injector ([employer]ix[employer]ive[employer]) Results & Data (ED) Vital Signs Vital Signs - 24 hr 04/22/24 10:07 04/22/24 10:07 04/22/24 10:21 Temperature 36.6 C Temperature Source Temporal Artery Scan Pulse Rate 117 H 91 H Pulse Rate [Apical] Pulse Rate from SpO2 Sensor Respiratory Rate 18 Respiratory Effort / Characteristics Respiratory Pattern Blood Pressure 93/62 L Blood Pressure [Left Arm] Blood Pressure Mean 72 Blood Pressure Mean [Left Arm] Pulse Oximetry 83 L Oxygen Delivery Method Nasal Cannula Nasal Cannula Oxygen Flow Rate 5 5 Sepsis Recent Fever Within 48 Hours No Sepsis New/Unexplained Change in Mental Status N/A Sepsis Action Taken by Nursing No Action Required Oxygen Flow Rate - Titration Pulse Oximetry Post Tiitration 04/22/24 10:21 04/22/24 10:21 04/22/24 10:22 Temperature Temperature Source Pulse Rate 88 Pulse Rate [Apical] 89 Pulse Rate from SpO2 Sensor 86 Respiratory Rate 22 31 H Respiratory Effort / Characteristics Spontaneous Respiratory Pattern Regular Blood Pressure 89/73 L Blood Pressure [Left Arm] 70/50 L Blood Pressure Mean 78 Blood Pressure Mean [Left Arm] 56 Pulse Oximetry 97 95 Oxygen Delivery Method Non-rebreather Non-rebreather Oxygen Flow Rate 10 15 Sepsis Recent Fever Within 48 Hours Sepsis New/Unexplained Change in Mental Status Sepsis Action Taken by Nursing Oxygen Flow Rate - Titration Pulse Oximetry Post Tiitration 04/22/24 10:22 04/22/24 10:22 04/22/24 10:24 Temperature Temperature Source Pulse Rate Pulse Rate [Apical] Pulse Rate from SpO2 Sensor Respiratory Rate Respiratory Effort / Characteristics Respiratory Pattern Blood Pressure 70/50 L 70/50 L Blood Pressure [Left Arm] Blood Pressure Mean 54 54 Blood Pressure Mean [Left Arm] Pulse Oximetry 93 Oxygen Delivery Method Room Air Non-rebreather Oxygen Flow Rate Sepsis Recent Fever Within 48 Hours Sepsis New/Unexplained Change in Mental Status Sepsis Action Taken by Nursing Oxygen Flow Rate - Titration Pulse Oximetry Post Tiitration 04/22/24 10:26 04/22/24 10:26 04/22/24 10:26 Temperature Temperature Source Pulse Rate Pulse Rate [Apical] Pulse Rate from SpO2 Sensor Respiratory Rate Respiratory Effort / Characteristics Respiratory Pattern Blood Pressure 77/38 L 77/38 L 77/38 L Blood Pressure [Left Arm] Blood Pressure Mean 47 47 47 Blood Pressure Mean [Left Arm] Pulse Oximetry Oxygen Delivery Method Oxygen Flow Rate Sepsis Recent Fever Within 48 Hours Sepsis New/Unexplained Change in Mental Status Sepsis Action Taken by Nursing Oxygen Flow Rate - Titration Pulse Oximetry Post Tiitration 04/22/24 10:27 04/22/24 10:34 04/22/24 10:34 Temperature Temperature Source Pulse Rate 79 Pulse Rate [Apical] Pulse Rate from SpO2 Sensor 83 Respiratory Rate 28 H Respiratory Effort / Characteristics Respiratory Pattern Blood Pressure 128/61 128/61 Blood Pressure [Left Arm] Blood Pressure Mean 102 102 Blood Pressure Mean [Left Arm] Pulse Oximetry 98 Oxygen Delivery Method Aerosol Mask Oxygen Flow Rate 10 Sepsis Recent Fever Within 48 Hours Sepsis New/Unexplained Change in Mental Status Sepsis Action Taken by Nursing Oxygen Flow Rate - Titration Pulse Oximetry Post Tiitration 04/22/24 10:39 04/22/24 10:40 04/22/24 10:40 Temperature Temperature Source Pulse Rate 70 Pulse Rate [Apical] Pulse Rate from SpO2 Sensor 70 Respiratory Rate 24 Respiratory Effort / Characteristics Respiratory Pattern Blood Pressure 115/61 115/61 Blood Pressure [Left Arm] Blood Pressure Mean 78 78 Blood Pressure Mean [Left Arm] Pulse Oximetry 98 Oxygen Delivery Method Oxygen Flow Rate Sepsis Recent Fever Within 48 Hours Sepsis New/Unexplained Change in Mental Status Sepsis Action Taken by Nursing Oxygen Flow Rate - Titration Pulse Oximetry Post Tiitration 04/22/24 10:40 04/22/24 10:40 04/22/24 10:41 Temperature Temperature Source Pulse Rate Pulse Rate [Apical] Pulse Rate from SpO2 Sensor Respiratory Rate Respiratory Effort / Characteristics Respiratory Pattern Blood Pressure 115/61 115/61 Blood Pressure [Left Arm] Blood Pressure Mean 78 78 Blood Pressure Mean [Left Arm] Pulse Oximetry 98 Oxygen Delivery Method Non-rebreather Oxygen Flow Rate 10 Sepsis Recent Fever Within 48 Hours Sepsis New/Unexplained Change in Mental Status Sepsis Action Taken by Nursing Oxygen Flow Rate - Titration 5 Pulse Oximetry Post Tiitration 96 04/22/24 10:42 04/22/24 10:45 04/22/24 10:50 Temperature Temperature Source Pulse Rate 68 67 Pulse Rate [Apical] Pulse Rate from SpO2 Sensor 69 63 Respiratory Rate 36 H 23 Respiratory Effort / Characteristics Respiratory Pattern Blood Pressure 117/56 L Blood Pressure [Left Arm] Blood Pressure Mean 77 Blood Pressure Mean [Left Arm] Pulse Oximetry 96 94 Oxygen Delivery Method Nasal Cannula Nasal Cannula Oxygen Flow Rate 5 5 Sepsis Recent Fever Within 48 Hours Sepsis New/Unexplained Change in Mental Status Sepsis Action Taken by Nursing Oxygen Flow Rate - Titration Pulse Oximetry Post Tiitration 04/22/24 10:50 04/22/24 10:51 04/22/24 11:06 Temperature Temperature Source Pulse Rate 70 67 Pulse Rate [Apical] Pulse Rate from SpO2 Sensor 72 65 Respiratory Rate 21 21 Respiratory Effort / Characteristics Respiratory Pattern Blood Pressure 117/56 L Blood Pressure [Left Arm] Blood Pressure Mean 77 Blood Pressure Mean [Left Arm] Pulse Oximetry 95 97 Oxygen Delivery Method Oxygen Flow Rate 4 4 Sepsis Recent Fever Within 48 Hours Sepsis New/Unexplained Change in Mental Status Sepsis Action Taken by Nursing Oxygen Flow Rate - Titration Pulse Oximetry Post Tiitration 04/22/24 11:10 04/22/24 11:15 04/22/24 11:20 Temperature Temperature Source Pulse Rate 72 Pulse Rate [Apical] Pulse Rate from SpO2 Sensor 71 Respiratory Rate 22 Respiratory Effort / Characteristics Respiratory Pattern Blood Pressure 124/77 131/75 Blood Pressure [Left Arm] Blood Pressure Mean 80 85 Blood Pressure Mean [Left Arm] Pulse Oximetry 96 Oxygen Delivery Method Oxygen Flow Rate 4 Sepsis Recent Fever Within 48 Hours Sepsis New/Unexplained Change in Mental Status Sepsis Action Taken by Nursing Oxygen Flow Rate - Titration Pulse Oximetry Post Tiitration 04/22/24 11:41 04/22/24 11:48 Temperature Temperature Source Pulse Rate 74 Pulse Rate [Apical] Pulse Rate from SpO2 Sensor 75 Respiratory Rate 21 Respiratory Effort / Characteristics Respiratory Pattern Blood Pressure 133/58 L Blood Pressure [Left Arm] Blood Pressure Mean 83 Blood Pressure Mean [Left Arm] Pulse Oximetry 85 L 97 Oxygen Delivery Method Room Air Nasal Cannula Oxygen Flow Rate 4 Sepsis Recent Fever Within 48 Hours Sepsis New/Unexplained Change in Mental Status Sepsis Action Taken by Nursing Oxygen Flow Rate - Titration 4 Pulse Oximetry Post Tiitration 94 Laboratory Data 04/22/24 10:25 04/22/24 10:25 Lab Results 04/22/24 Range/Units 10:25 WBC 11.39 H (4.8-10.8) K/ul RBC 5.69 H (4.20-5.40) M/uL Hgb 17.3 H (12.0-16.0) g/dl Hct 54.2 H (37.0-47.0) % MCV 95.3 (80.0-100.0) fL MCH 30.4 (25.0-34.0) pg MCHC 31.9 L (32.0-36.0) g/dL RDW Std Deviation 48.2 H (36.4-46.3) fL RDW Coeff of Mariusz 13.7 (11.5-14.5) % Plt Count 223 (130-400) K/uL MPV 12.1 (9.4-12.4) fL Neutrophils % (Manual) 56 % Lymphocytes % (Manual) 6 % Monocytes % (Manual) 4 % Eosinophils % (Manual) 1 % Neutrophils # (Manual) 6.38 (1.40-6.50) K/uL Total Absolute Neuts 6.38 (1.4-6.5) K/uL Lymphocytes # (Manual) 0.68 L (1.2-3.4) K/uL Total Abs Lymphocytes 4.44 H (1.2-3.4) K/uL Monocytes # (Manual) 0.46 (0.11-0.59) K/uL Eosinophils # (Manual) 0.11 (0-0.50) K/uL Large Granular Lymphs 33 % # Lrg Granular Lymphs 3.76 K/uL Sodium 138 (136-145) mmol/L Potassium 3.7 (3.5-5.1) mmol/L Chloride 96 L (98-107) mmol/L Carbon Dioxide 33 H (21-32) mmol/L Anion Gap 9 (3-11) BUN 21 (6-23) mg/dl Creatinine 0.81 (0.6-1.2) mg/dl Est Cr Clr Drug Dosing 66.7 ml/min eGFR 72.43 BUN/Creatinine Ratio 25.9 H (10-20) Glucose 257 H (70-99(Fasting)) mg/dl Calcium 9.4 (8.6-10.3) mg/dl Total Bilirubin 1.1 H (0.2-1.0) mg/dl AST 12 L (13-39) U/L ALT 10 (7-52) U/L Alkaline Phosphatase 82 (34-104) U/L Troponin I High Sens 8.2 (0-14) pg/ml Total Protein 7.4 (6.0-8.3) gm/dl Albumin 4.2 (3.4-5.0) gm/dl Globulin 3.2 (2.5-4.0) gm/dl Albumin/Globulin Ratio 1.3 (0.9-2) Administered Medications Discontinued Medications Albuterol (Albuterol 0.083% Nebu Soln 3 Ml Vial) 2.5 mg INH NOW STA Stop: 04/22/24 10:25 Last Admin: 04/22/24 10:27 Dose: 2.5 mg Documented By: AM Diphenhydramine HCl (Diphenhydramine 50 Mg/Ml Vial) 50 mg IV NOW STA Stop: 04/22/24 10:25 Last Admin: 04/22/24 10:28 Dose: 50 mg Documented By: AM Epinephrine HCl (Epinephrine Inj 1 Mg/Ml Amp) Confirm Administered Dose 1 mg .ROUTE .STK-MED ONE Stop: 04/22/24 10:23 Last Admin: 04/22/24 10:28 Dose: Not Given Documented By: AM Epinephrine HCl (Epinephrine Inj 1 Mg/Ml Amp) 0.3 mg IM NOW STA Stop: 04/22/24 10:24 Last Admin: 04/22/24 10:26 Dose: 0.3 mg Documented By: AM Sodium Chloride (Nss) 1,000 mls @ 999 mls/hr IV .Q1H1M [facility] Stop: 04/22/24 12:30 Last Infusion: 04/22/24 13:23 Dose: Infused Documented By: Admin: 04/22/24 11:40 Dose: 999 mls/hr Documented By: Infusion: 04/22/24 11:36 Dose: Infused Documented By: Admin: 04/22/24 10:35 Dose: 999 mls/hr Documented By: AM Methylprednisolone (Methylprednisolone 125 Mg/2 Ml Vial) 125 mg IV NOW STA Stop: 04/22/24 10:25 Last Admin: 04/22/24 10:28 Dose: 125 mg Documented By: AM Imaging Data Radiologist's Impression: Chest X-Ray 04/22/24 10:24 XR chest 1V portable CLINICAL HISTORY: sob COMPARISON STUDY: 03/04/2024 FINDINGS: There is been no significant interval change allowing for technical differences. There is no acute cardiopulmonary process identified. Multiple bilateral old rib fractures are once again seen. 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 There are scattered interstitial reticular densities are present suggesting a component of interstitial lung disease. The heart and pulmonary vascularity are unremarkable. IMPRESSION: Stable exam; no acute process identified. ACT 112: Negative or not required by law. Electronically signed by: Aleja Calvillo M.D. 04/22/2024 10:57 AM Discharge Plan Visit Data Chief Complaint: Allergic Reaction Stated Complaint: SOB, ITCHY, ALLERGIC REACTION, TOOK AMOXACILLAN ED Provider: Matt Neri Discharge Problem: Anaphylaxis, Hypoxia, Acute hypotension Patient Disposition: Admitted As Inpatient Discharge Instructions Interventions: ED Discharge Assessment Last Done: 04/22/24 12:32 Discharge Problem: Anaphylaxis Qualifiers: Encounter type: initial encounter Qualified Code(s): T78.2XXA - Anaphylactic shock, unspecified, initial encounter
[2024-04-22] MEDS: methylPREDNISolone 125 MG/2 ML VIAL IV STA (10:28)
[2024-04-22] MEDS: EPINEPHrine INJ 1 MG/ML AMP ONE (10:28)
[2024-04-22] MEDS: diphenhydrAMINE 50 MG/ML VIAL IV STA (10:28)
[2024-04-22] MEDS ORDERED: EPINEPHrine INJ 1 MG/ML AMP IM STA (10:29)
[2024-04-22] MEDS: SODIUM CHLORIDE 0.9% 1,000 ML IV SCH (10:35)
--- NOTE | 2024-04-22 10:58 | XRay Report ---
XR chest 1V portable CLINICAL HISTORY: sob COMPARISON STUDY: 03/04/2024 FINDINGS: There is been no significant interval change allowing for technical differences. There is n o acute cardiopulmonary process identified. Multiple bilateral old rib fractures are once again seen. 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 There are scattered interstitial reticular densities are present sugge sting a component of interstitial lung disease. The heart and pulmonary vascularity are unremarkable. IMPRESSION: Stable exam; no acute process identified. ACT 112: Negative or not required by law. Electronically signed by: Aleja Calvillo M.D. 04/22/2024 10:57 AM
[2024-04-22 11:00] LABS: Albumin Globulin Ratio 1.3 (0.9-2); Albumin Level 4.2 gm/dl (3.4-5.0); BUN Creatinine Ratio 25.9 (10-20); Bilirubin,Total 1.1 mg/dl (0.2-1.0); Calcium 9.4 mg/dl (8.6-10.3); Creatinine Clr Calc Pharmacy 66.7 ml/min; Globulin 3.2 gm/dl (2.5-4.0); Potassium 3.7 mmol/L (3.5-5.1); Total Protein 7.4 gm/dl (6.0-8.3)
[2024-04-22 11:03] LABS: Hematocrit (blood only) 54.2 % (37.0-47.0); Hemoglobin 17.3 g/dl (12.0-16.0); Mean Corpuscular Hemoglobin 30.4 pg (25.0-34.0); Mean Corpuscular Hgb Conc 31.9 g/dL (32.0-36.0); Mean Corpuscular Volume 95.3 fL (80.0-100.0); Mean Platelet Volume 12.1 fL (9.4-12.4); Platelet Count 223 K/uL (130-400); RDW Coefficient of Variation 13.7 % (11.5-14.5); RDW Standard Deviation 48.2 fL (36.4-46.3); Red Blood Count 5.69 M/uL (4.20-5.40); White Blood Count 11.39 K/ul (4.8-10.8)
[2024-04-22 11:15] LABS: Troponin I High Sensitivity 8.2 pg/ml (0-14)
--- NOTE | 2024-04-22 11:46 | Electrocardiogram Report ---
Test Reason : Blood Pressure : */* mmHG Vent. Rate : 87 BPM Atrial Rate : 87 BPM P-R Int : 174 ms QRS Dur : 174 ms QT Int : 442 ms P-R-T Axes : -18 -87 45 degrees QTcB Int : 531 ms Normal sinus rhythm Right bundle branch block Left anterior fascicular block Bifascicular block Minimal voltage criteria for LVH, may be normal variant ( R in aVL ) Abnormal ECG When compared with ECG of 18-Jun-2022 17:36, Left anterior fascicular block is now Present T wave inversion no longer evident in Inferior leads Confirmed by Serafin Miller ([id number]) on 04/22/2024 11:46:48 AM Referred By: Confirmed By: Serafin Miller
--- NOTE | 2024-04-22 11:58 | History & Physical Report ---
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: Plan: Epinephrine 0.3mg IM ONE PRN if lip or tongue swelling returns (need to call provider if used) Diphenhydramine 50mg IV q6h PRN for other allergy symptoms such as skin itching or rash Solu-Medrol given in the ER, will give one dose of dexamethasone 10mg IV tomorrow due to long acting nature therefore will effectively self taper and unlikely to need ongoing steroids after this Duonebs as needed for shortness of breath or wheezing (2) Hypoxia: Plan: Baseline on room air at rest, however needs 4LPM O2 at night and 2LPm O2 on exertion therefore may now get back down to Aim O2 sats > 88% Continue routine inhalers for COPD Plan VTE Prophylaxis - low risk Diet - regular Disposition - observation to PCU Admission and Anticipated Discharge Date Admission Date: April 22, 2024 History of Present Illness Chief Complaint: Anaphylaxis Primary Care Provider: DO Anita Hernandez Daysi is an 83-year-old female who presents to the ER with difficulty breathing and itchy rash. She reports this suddenly happened after taking amoxicillin around 9:30 AM. She denies any lip or tongue swelling. After steroids, epinephrine and Benadryl given in the emergency room she feels significantly better. She denies any current shortness of breath or chest pain. Rash has dissipated. Prior to taking amoxicillin for an upcoming dental procedure she was feeling well although she has noted intermittent skin itching in different areas of her body occurring bilaterally and was initially concerned she may have shingles. In the emergency room she is still requiring 2 L of oxygen. She reports requiring 4 L of oxygen due to COPD at night and occasionally takes oxygen for when she exerts herself such as going shopping. Otherwise she is on room air at baseline. Allergies Allergy/AdvReac Type Severity Reaction Status Date / Time shellfish derived Allergy Severe HIVES, Verified 04/22/24 12:47 SWOLLEN LIP , ANAPHYLAXIS Penicillins Allergy Unknown Unknonw - Unverified 04/22/24 12:47 On file w/ [facility] augmentin AdvReac Unknown Itchy Skin Uncoded 04/22/24 12:47 Home Medications Medication Instructions Recorded Confirmed Type ascorbic acid (vitamin C) 1,000 mg 1 g PO QDL 01/16/18 04/22/24 History tablet (Vitamin C) cyanocobalamin (vitamin B-12) 1,000 mcg PO QDL 01/16/18 04/22/24 History 1,000 mcg tablet (Vitamin B-12) omega-3s 300 [id number] 1 tab PO QDL 01/16/18 04/22/24 History [id number] oil 1,000 mg capsule ([place]-3 Fish Oil) cholecalciferol (vitamin D3) 25 1,000 units PO QDL 10/26/18 04/22/24 History mcg (1,000 unit) capsule acetaminophen 325 mg tablet 650 mg (2 x 325 mg) PO Q4H PRN 03/05/20 04/22/24 Rx pain #20 tabs aspirin 81 mg tablet,delayed 81 mg PO DAILY 03/15/23 04/22/24 History release amlodipine 10 mg tablet 10 mg PO QDL #90 tabs 07/24/23 04/22/24 Rx escitalopram oxalate 10 mg tablet 15 mg (1.5 x 10 mg) PO DAILY #135 10/17/23 04/22/24 Rx tabs albuterol sulfate 90 mcg/actuation 2 puff inhalation Q4H PRN Wheezing 11/30/23 04/22/24 Rx aerosol inhaler (Ventolin HFA) #18 grams fluticasone furoate 200 1 inh inhalation DAILY #60 ea 11/30/23 04/22/24 Rx mcg-vilanterol 25 mcg/dose inhalation powder (Breo Ellipta) tiotropium bromide 2.5 2 puff inhalation DAILY #4 grams 11/30/23 04/22/24 Rx mcg/actuation mist for inhalation (Spiriva Respimat) celecoxib 200 mg capsule (Celebrex) 200 mg PO BID 02/13/24 04/22/24 History Portable Oxygen #1 ea 02/14/24 02/26/24 Rx dupilumab 300 mg/2 mL subcutaneous 300 mg (2 mL) subcut Q14D #2 mL 02/16/24 04/22/24 Rx pen injector (Dupixent) benazepril 40 mg tablet 0 mg PO DAILY 04/22/24 04/22/24 History fluticasone propionate 50 1 spray intranasal BID 04/22/24 04/22/24 History mcg/actuation nasal spray,suspension hydrochlorothiazide 25 mg tablet 25 mg PO DAILY 04/22/24 04/22/24 History ipratropium bromide 21 mcg (0.03 1 - 2 spray intranasal UD 04/22/24 04/22/24 History %) nasal spray levocetirizine 5 mg tablet 5 mg PO HS 04/22/24 04/22/24 History montelukast 10 mg tablet 0 mg PO DAILY 04/22/24 04/22/24 History 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 Lumbar facet arthropathy Lumbar degenerative disc disease Cervical facet joint syndrome Bilateral sacroiliitis Allergic rhinitis with postnasal drip SOB (shortness of breath) on exertion Chronic respiratory failure with hypoxia Chronic low back pain Spasm of left trapezius muscle Cervical paraspinal muscle spasm Myofascial neck pain Acute on chronic respiratory failure with hypoxemia Multiple pulmonary nodules Ex-smoker LVH (left ventricular hypertrophy) Kidney cysts Hepatic cyst Pancreatic cyst Hypertension (Chronic) Hypoxia (Chronic) COPD (chronic obstructive pulmonary disease) (Chronic) Mixed hyperlipidemia (Chronic) History of lung cancer (Chronic 01/27/10) Adenocarcinoma -bilateral Peripheral neuropathy (Acute) Osteopenia after menopause (Acute) Nocturnal hypoxia Thyroid disease Allergic rhinitis Right carotid bruit RBBB Lower extremity edema PAD (peripheral artery disease) Pre-diabetes Lumbar disc disease Cervical spondylolysis Medical History DVT prophylaxis Supplemental oxygen dependent History of fall History of lung cancer DVT prophylaxis GERD (gastroesophageal reflux disease) Pulmonary nodule Bifascicular block Obesity Osteoarthritis Hypertension Hyperlipidemia Chronic obstructive pulmonary disease Surgical History History of cataract surgery History of lung surgery (06/04/20) History of total knee replacement History of arthroplasty of left knee Hx of oophorectomy History of colonoscopy (12/28/18) History of tooth extraction History of tonsillectomy History of lobectomy of lung (01/27/10) Family History Unknown Silicosis Mother Ovarian cancer Cancer Sister Cancer Breast cancer Grandmother Breast cancer Denies family history of Prostate cancer Diabetes Myocardial infarction Lung cancer Colorectal cancer Stroke Social History Smoking Status: Former smoker Tobacco Type: Cigarettes Age Started Using Tobacco: 19; Age Quit Using Tobacco: 63; packs per day: 0.5; Cigarettes Per Day: 10; Second Hand Exposure: No; Do You Dip or Chew Tobacco: No; Hx Alcohol Use: No Hx Substance Use: No Preferred Language: Chadian Communication Ability: Effective Visual Impairment: Limited Hearing Ability: Normal Chef Passenger Vessel Required: No Beliefs That Will Affect Care: None marital status: Current Living Situation: Spouse Current Living Situation Comment: 2 story house current occupational status: retired current occupation: used to work for [employer] How many Children do You have: 1 Feels Safe at Home: Yes Safety Concerns: Feels Safe At This Time Childhood Exposure to Second-Hand Smoke: Yes Diet: regular caffeine: Yes Dental Care, Regularly: Yes Physical Activity Frequency: Does not Exercise Seatbelt Use: always Sunscreen Use: No Assistive Devices: Cane Assistive Devices Comment: cane for outside use Review of Systems Review of Systems: All systems reviewed & are unremarkable except as noted in HPI & below Physical Exam Constitutional: WD/WN, vitals as above ENMT: external ear and nose normal, oropharynx normal Respiratory: normal respiratory effort; no respiratory distress Auscultation: + wheezes (mild posterior end expiratory); no crackles and no rhonchi Cardiovascular: RRR, no murmur, no edema Gastrointestinal (Abdomen): normal bowel sounds, soft, nontender, no hepatosplenomegaly Skin: no rashes, warm and dry (multiple seborrheic keratoses, no hives or skin rash) Neurologic: moves all extremities and awake; not confused Psychiatric: A+Ox3, euthymic affect Results & Data Results & Data Vital Signs (Past 12 Hours) Vital Signs Temp Pulse Pulse Resp BP BP Pulse Ox 04/22/24 11:41 85 L 04/22/24 11:20 131/75 04/22/24 11:15 72 22 96 04/22/24 11:10 124/77 04/22/24 11:06 67 21 97 04/22/24 10:51 70 21 95 04/22/24 10:50 117/56 L 04/22/24 10:50 117/56 L 04/22/24 10:45 67 23 94 04/22/24 10:42 68 36 H 96 04/22/24 10:41 98 04/22/24 10:40 115/61 04/22/24 10:40 115/61 04/22/24 10:40 115/61 04/22/24 10:40 115/61 04/22/24 10:39 70 24 98 04/22/24 10:34 128/61 04/22/24 10:34 128/61 98 04/22/24 10:27 79 28 H 04/22/24 10:26 77/38 L 04/22/24 10:26 77/38 L 04/22/24 10:26 77/38 L 04/22/24 10:24 93 04/22/24 10:22 70/50 L 04/22/24 10:22 70/50 L 04/22/24 10:22 89 31 H 70/50 L 95 04/22/24 10:21 88 22 97 04/22/24 10:21 89/73 L 04/22/24 10:21 91 H 04/22/24 10:07 04/22/24 10:07 36.6 C 117 H 18 93/62 L 83 L O2 Del Method O2 Flow Rate 04/22/24 11:41 Room Air 04/22/24 11:20 04/22/24 11:15 4 04/22/24 11:10 04/22/24 11:06 4 04/22/24 10:51 4 04/22/24 10:50 04/22/24 10:50 04/22/24 10:45 Nasal Cannula 5 04/22/24 10:42 Nasal Cannula 5 04/22/24 10:41 Non-rebreather 10 04/22/24 10:40 04/22/24 10:40 04/22/24 10:40 04/22/24 10:40 04/22/24 10:39 04/22/24 10:34 04/22/24 10:34 Aerosol Mask 10 04/22/24 10:27 04/22/24 10:26 04/22/24 10:26 04/22/24 10:26 04/22/24 10:24 Room Air, Non-rebreather 04/22/24 10:22 04/22/24 10:22 04/22/24 10:22 Non-rebreather 15 04/22/24 10:21 Non-rebreather 10 04/22/24 10:21 04/22/24 10:21 04/22/24 10:07 Nasal Cannula 5 04/22/24 10:07 Nasal Cannula 5 Laboratory Results Abnormal lab results 04/22/24 Range/Units 10:25 WBC 11.39 H (4.8-10.8) K/ul RBC 5.69 H (4.20-5.40) M/uL Hgb 17.3 H (12.0-16.0) g/dl Hct 54.2 H (37.0-47.0) % MCHC 31.9 L (32.0-36.0) g/dL RDW Std Deviation 48.2 H (36.4-46.3) fL Chloride 96 L (98-107) mmol/L Carbon Dioxide 33 H (21-32) mmol/L BUN/Creatinine Ratio 25.9 H (10-20) Glucose 257 H (70-99(Fasting)) mg/dl Total Bilirubin 1.1 H (0.2-1.0) mg/dl AST 12 L (13-39) U/L Diagnostic Findings XR chest 1V portable CLINICAL HISTORY: sob COMPARISON STUDY: 03/04/2024 FINDINGS: There is been no significant interval change allowing for technical differences. There is no acute cardiopulmonary process identified. Multiple bilateral old rib fractures are once again seen. 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 There are scattered interstitial reticular densities are present suggesting a component of interstitial lung disease. The heart and pulmonary vascularity are unremarkable. IMPRESSION: Stable exam; no acute process identified. Medications Administered ER Medications Given: Epinephrine 0.3 mg IM Diphenhydramine 50 mg IV Solu-Medrol 125 mg IV DuoNeb 2.5 mg NEB Normal saline 2 L bolus ECG Rate (beats per minute): 87 Rhythm: normal sinus Findings: + LAFB and + RBBB Comparison ECG Date: from (June 18, 2022) Change: the following changes noted (TWI no longer evident in inferior leads, LA DB is new) Code Status & VTE Plan Code Status Full VTE Prophylaxis Plan VTE Prophylaxis will be ordered: Yes PG Care Time/CCT Total # of Minutes Spent Total Time Spent with Patient: Total time spent is greater than 50% in coordination of care (as documented) at patient's floor/unit and/or counseling patient: Coding Level of Care Code 33809 INT INP/OBS CARE 3/75MIN Diagnoses 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
[2024-04-22] MEDS ORDERED: EPINEPHrine INJ 1 MG/ML AMP IM PRN (12:31)
[2024-04-22] MEDS ORDERED: ALBUT/IPRATROP 3MG/0.5MG NEB 3 ML VIAL NEB PRN (13:01)
[2024-04-22] MEDS ORDERED: diphenhydrAMINE 50 MG/ML VIAL IV PRN (13:01)
[2024-04-22 13:29] LABS: ALC (manual) 4.44 K/uL (1.2-3.4); ANC (manual) 6.38 K/uL (1.4-6.5); Eosinophils # (manual) 0.11 K/uL (0-0.50); Eosinophils % (manual) 1 %; Large Granular Lymph # (manua 3.76 K/uL; Large Granular Lymph % (manual) 33 %; Lymphocytes # (manual) 0.68 K/uL (1.2-3.4); Lymphocytes % (manual) 6 %; Monocytes # (manual) 0.46 K/uL (0.11-0.59); Monocytes % (manual) 4 %; Neutrophils # (manual) 6.38 K/uL (1.40-6.50); Neutrophils % (manual) 56 %
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
[2024-04-22] MEDS: ACETAMINOPHEN 325 MG TAB PO PRN (23:18)
[2024-04-22] MEDS: CeleBREX 200 MG CAP PO SCH (23:56)
[2024-04-22] MEDS: FLUTICASONE PROPIONATE NA SPR 16 GM BTL NAE SCH (23:57)
[2024-04-22] MEDS: CETIRIZINE HCL 10 MG TABLET PO SCH (23:57)
[2024-04-23 07:52] VITALS: RESP 18; TEMP 97.9; O2SAT 96
[2024-04-23] MEDS ORDERED: DEXAMETHASONE SOD INJ 4 MG/ML VIAL IV SCH (09:00)
[2024-04-23] MEDS: ASPIRIN 81 MG ECTAB PO SCH (09:21)
[2024-04-23] MEDS: dexAMETHasone 10 MG in SYRINGE 0 ML IV SCH (09:21)
[2024-04-23] MEDS: ENALAPRIL MALEATE 10 MG TAB PO SCH (09:22)
[2024-04-23] MEDS: hydroCHLOROthiazide 25 MG TAB PO SCH (09:22)
[2024-04-23] MEDS: ESCITALOPRAM OXALATE 10 MG TAB PO SCH (09:22)
[2024-04-23] MEDS: FLUTICASONE/VILANTEROL 200/25MCG 14 PUFFS/INHALER INH SCH (09:23)
[2024-04-23] MEDS: UMECLIDINIUM BROMIDE 62.5MCG/BLISTER 7 PUFFS/INHALER INH SCH (09:24)
[2024-04-23] MEDS: IPRATROPIUM BROMIDE NASAL SPRAY 0.06% 15ML NAE SCH (09:24)
--- NOTE | 2024-04-23 09:59 | Discharge Summary ---
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 Given Epinephrine, IV Benadryl and IV Solumedrol in the ED. Admitted overnight for observation, no recurrence of anaphylaxis symptoms. Breathing is at baseline. Discharged with Epi Pen, Dexamethasone taper. Continue current antihistamines and ENT follow up as scheduled. Tryptase level pending. (2) Hypoxia: Back to her baseline: 4LPM O2 at night and 2LPm O2 on exertion continue inhalers Plan Dispo: discharge to home today with PCP follow up Notes For Next Care Provider tryptase level pending Medication Changes From Visit Epi-pen dexamethasone taper Admission HPI Per Admitting Provider Anita Tavarez is an 83-year-old female who presents to the ER with difficulty breathing and itchy rash. She reports this suddenly happened after taking amoxicillin around 9:30 AM. She denies any lip or tongue swelling. After steroids, epinephrine and Benadryl given in the emergency room she feels significantly better. She denies any current shortness of breath or chest pain. Rash has dissipated. Prior to taking amoxicillin for an upcoming dental procedure she was feeling well although she has noted intermittent skin itching in different areas of her body occurring bilaterally and was initially concerned she may have shingles. In the emergency room she is still requiring 2 L of oxygen. She reports requiring 4 L of oxygen due to COPD at night and occasionally takes oxygen for when she exerts herself such as going shopping. Otherwise she is on room air at baseline. Discharge Exam General: NAD, VS as above, sitting up in the chair Resp: normal respiratory effort, a few crackles in the bases, no wheezing CV: RRR, no murmur, Abd: normal bowel sounds, non tender, Extremities: Moves all extremities, Neuro: A&O x3, Skin: intact, no lesions noted Discharge Plan Discharge Items Patient Disposition: Home - Self-Care Reason For Visit: ANAPHYLAXIS Discharge Diagnosis: Anaphylaxis Activity: Resume your previous activity Bathing: No limitations Driving/Machine Use: No limitations Weightbearing: Full weightbearing Non-emergency contact: Primary Care Provider Call non-emergency contact if: you have any medication questions, your symptoms worsen and your temperature is above 101 Follow-up/Referrals: Nesha Jones DO [Primary Care Provider] - 04/25/24 11:00 am (Hospital follow up with Lis Mitchell PA-C is scheduled for April 25, 2024 at 11am.) Diet: Regular Addtl Attending Provider Instructions: Ms. Tavarez, You were hospitalized after having an anaphylactic reaction to Augmentin. This was treated with epinephrine, Benadryl and steroids. Thankfully, your symptoms have no recurred. Please to do NOT TAKE Augmentin or amoxicillin in the future. For future dental procedures, you will like need clindamycin. I have sent in a short course of steroids to help continue to treat the anaphylaxis. I have also sent in an epi-pen to use as needed for future incidents. You should try to keep this on you at all times. You should continue to take your levocetirizine (xyzal) daily. Also continue your nasal sprays. If you have worsening rash you can try Pepcid or Benadryl over the counter. For worsening shortness of breath, throat swelling or difficulty breathing please return to the ER. Please follow up with your PCP in 7-10 days. No changes to your home medications. Continue to use oxygen as prescribed. Thanks for allowing us to participate in your care! Pending Studies at Discharge: Yes (tryptase level ) Stand-Alone Forms: My [facility] [employer], Smoking Cessation Medications and DC Order Prescriptions: New dexamethasone 2 mg tablet See Taper PO DAILY Qty: 12 0RF Taper: Taper, Blank 6 mg DAILY for 2 Days 4 mg DAILY for 2 Days 2 mg DAILY for 2 Days epinephrine [EpiPen] 0.3 mg/0.3 mL auto-injector 0.3 mg IM Q4H PRN (Reason: anaphylaxis) Qty: 2 1RF Continued aspirin 81 mg tablet,delayed release (DR/EC) 81 mg PO DAILY Rx Instructions: Unable to verify OTC meds at this date/time. amlodipine 10 mg tablet 10 mg PO QDL Qty: 90 3RF escitalopram oxalate 10 mg tablet 15 mg PO DAILY Qty: 135 3RF celecoxib [Celebrex] 200 mg capsule 200 mg PO BID (DME) Portable Oxygen Misc See Rx Instructions .MEDSUPPLY Qty: 1 0RF Rx Instructions: Oxygen 1 liter via Nasal cannula at rest and 4 liters continuous via nasal cannula on exertion with portable concentrator. PRABHAKAR 99 Dupixent Pen 300 mg/2 mL pen injector 300 mg subcut Q14D Qty: 2 10RF Rx Instructions: To be started 14 days after loading dose; Maintenance dose: Inject 300 mg(2 ml) subcutaneously every other week cholecalciferol (vitamin D3) 1,000 unit capsule 1,000 units PO QDL Rx Instructions: Unable to verify OTC meds at this date/time. Spiriva Respimat 2.5 mcg/actuation mist 2 puff inhalation DAILY Qty: 4 6RF fluticasone furoate-vilanterol [Breo Ellipta] 200-25 mcg/dose blister with device 1 inh inhalation DAILY Qty: 60 6RF albuterol sulfate [Ventolin HFA] 90 mcg/actuation HFA aerosol inhaler 2 puff INHALATION Q4H PRN (Reason: Wheezing) Qty: 18 4RF ascorbic acid (vitamin C) [Vitamin C] 1,000 mg Tablet 1 g PO QDL Rx Instructions: Unable to verify OTC meds at this date/time. [place]-3 Fish Oil 300-1,000 mg Capsule 1 tab PO QDL Rx Instructions: Unable to verify OTC meds at this date/time. cyanocobalamin (vitamin B-12) [Vitamin B-12] 1,000 mcg Tablet 1,000 mcg PO QDL Rx Instructions: Unable to verify OTC meds at this date/time. acetaminophen 325 mg Tablet 650 mg PO Q4H PRN (Reason: pain) Qty: 20 0RF Rx Instructions: Unable to verify OTC meds at this date/time. fluticasone propionate 50 mcg/actuation spray,suspension 1 spray INTRANASAL BID levocetirizine 5 mg tablet 5 mg PO HS montelukast 10 mg tablet 0 mg PO DAILY Rx Instructions: Per pharmacy, last filled 10/2023 x90 day supply. Original Directions: 10mg by mouth daily hydrochlorothiazide 25 mg tablet 25 mg PO DAILY Rx Instructions: Take 1 tablet by mouth once daily benazepril 40 mg tablet 0 mg PO DAILY Rx Instructions: Per pharmacy, last filled 10/2023 x90 day supply. Original Directions: 40mg by mouth daily ipratropium bromide 21 mcg (0.03 %) spray,non-aerosol 1 - 2 spray intranasal UD Rx Instructions: USE 1-2 SPRAYS EACH NOSTRIL 1-2 TIMES DAILY.; administer into each nostril Discharge Orders: Discharge Order (Routine); Ordered 04/23/24 Ordered By: Laura Fung/Other Patient Handouts: Using an Epinephrine Autoinjector, ED Anaphyl axis Admission Data Admit Date/Time: 04/22/24 11:56 Attending Provider: Melanie Perera Admit Provider: Juan Luis Alfaro Primary Care Provider: Nesha Jones Other Providers: Juan Luis Aflaro Other Interventions: Discharge Summary Assessment (RN) Last Done: 04/23/24 10:25 Hospital Stay Data Consultations 04/22/24 11:49 ED Decision to Admit Stat Diagnostic Imagining Performed Chest X-Ray 04/22/24 10:24 XR chest 1V portable CLINICAL HISTORY: sob COMPARISON STUDY: 03/04/2024 FINDINGS: There is been no significant interval change allowing for technical differences. There is no acute cardiopulmonary process identified. Multiple bilateral old rib fractures are once again seen. 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 There are scattered interstitial reticular densities are present suggesting a component of interstitial lung disease. The heart and pulmonary vascularity are unremarkable. IMPRESSION: Stable exam; no acute process identified. ACT 112: Negative or not required by law. Electronically signed by: Aleja Calvillo M.D. 04/22/2024 10:57 AM Pending Results Patient Have Any Pending Studies at Discharge: Yes (tryptase level ) Discharge Instructions Given to Patient (Per Discharging Provider) Javon Bradley were hospitalized after having an anaphylactic reaction to Augmentin. This was treated with epinephrine, Benadryl and steroids. Thankfully, your symptoms have no recurred. Please to do NOT TAKE Augmentin or amoxicillin in the future. For future dental procedures, you will like need clindamycin. I have sent in a short course of steroids to help continue to treat the anaphylaxis. I have also sent in an epi-pen to use as needed for future incidents. You should try to keep this on you at all times. You should continue to take your levocetirizine (xyzal) daily. Also continue your nasal sprays. If you have worsening rash you can try Pepcid or Benadryl over the counter. For worsening shortness of breath, throat swelling or difficulty breathing please return to the ER. Please follow up with your PCP in 7-10 days. No changes to your home medications. Continue to use oxygen as prescribed. Thanks for allowing us to participate in your care! Supervising Physician Co-Signing Physician Notes [facility] Supervision Note: I did not personally see or examine the patient today, but I verified all barajas points of KYLA[facility] Bello's assessment and plan with the following exceptions/additions: None Total Time Total Time Spent Total Time Spent (In Minutes): Time spent day of discharge 40 minutes including direct patient care, medication reconciliation, documentation, review of labs and images, and coordination of care. 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
[2024-04-23 10:26] VITALS: BP 141/61
[2024-04-23 11:16] VITALS: PULSE 80
[2024-04-23] MEDS ORDERED: amLODIPine BESYLATE 5 MG TAB PO SCH (11:30)
== END 2024-04-23 11:16 | disposition home or self-care (01) ==
LOC: ED 10:06 → 2E 10:06 → SUATTDRO 11:56 → 2E 12:32

== ENCOUNTER 2024-05-10 11:15 | Inpatient (IN) ==
[2024-05-10 12:40] LABS: Basophils # (auto) 0.03 K/uL (0.00-0.20); Basophils % (auto) 0.2 %; Hematocrit (blood only) 45.9 % (37.0-47.0); Hemoglobin 14.4 g/dl (12.0-16.0); Immature Granulocytes # (auto) 0.05 K/uL (0.01-0.20); Immature Granulocytes % (auto) 0.4 %; Lymphocytes # (auto) 1.45 K/uL (1.20-3.40); Lymphocytes % (auto) 11.8 %; Mean Corpuscular Hemoglobin 29.5 pg (25.0-34.0); Mean Corpuscular Hgb Conc 31.4 g/dL (32.0-36.0); Mean Corpuscular Volume 94.1 fL (80.0-100.0); Mean Platelet Volume 11.3 fL (9.4-12.4); Monocytes # (auto) 0.99 K/uL (0.11-0.59); Monocytes % (auto) 8.1 %; Neutrophils # (auto) 9.74 K/uL (1.40-6.50); Neutrophils % (auto) 79.5 %; Platelet Count 162 K/uL (130-400); RDW Coefficient of Variation 13.8 % (11.5-14.5); RDW Standard Deviation 47.9 fL (36.4-46.3); Red Blood Count 4.88 M/uL (4.20-5.40); White Blood Count 12.26 K/ul (4.8-10.8)
[2024-05-10 12:58] LABS: Alanine Aminotransferase 9 U/L (7-52); Albumin Level 3.5 gm/dl (3.4-5.0); Alkaline Phosphatase 65 U/L (34-104); Anion Gap 5 (3-11); Aspartate Aminotransferase 11 U/L (13-39); BUN Creatinine Ratio 22.4 (10-20); Bilirubin,Total 1.3 mg/dl (0.2-1.0); Blood Urea Nitrogen 15 mg/dl (6-23); Carbon Dioxide 38 mmol/L (21-32); Chloride 92 mmol/L (98-107); Globulin 3.6 gm/dl (2.5-4.0); Glucose 228 mg/dl (70-99(Fasting)); Potassium 3.3 mmol/L (3.5-5.1); Sodium 135 mmol/L (136-145); Total Protein 7.1 gm/dl (6.0-8.3)
[2024-05-10 13:04] LABS: Troponin I High Sensitivity 13.7 pg/ml (0-14)
[2024-05-10 13:08] LABS: Partial Thromboplastin Time 27 Seconds (21-31); Prothrombin Time 10.5 Seconds (9.0-12.0)
--- NOTE | 2024-05-10 13:16 | XRay Report ---
XR chest 1V not portable CLINICAL HISTORY: Chest pain, nonspecific COMPARISON STUDY: Chest CT March 05, 2024. Chest radiograph April 22, 2024. FINDINGS: There are stable postoperative findings within the chest. 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 This is chronic. There is no superimposed consolidation. Cardiomegaly is again n oted. There is no evidence for pulmonary edema. Multiple old bilateral rib deformities are present. T he appearance of the chest is unchanged. IMPRESSION: No acute cardiopulmonary findings. No change in appearance of the chest. ACT 112: Negative or not required by law. Electronically signed by: Damion Guerrier M.D. 05/10/2024 1:15 PM
[2024-05-10 13:29] LABS: Adenovirus PCR Not Detected (NotDetected); Bordetella parapertussis PCR Not Detected (NotDetected); Bordetella pertussis PCR Not Detected (NotDetected); Chlamydia pneumoniae PCR Not Detected (NotDetected); Coronavirus 229E PCR Not Detected (NotDetected); Coronavirus CoV-2 (COVID19)PCR DETECTED (NotDetected); Coronavirus HKU1 PCR Not Detected (NotDetected); Coronavirus NL63 PCR Not Detected (NotDetected); Coronavirus OC43PCR Not Detected (NotDetected); Human Metapneumovirus PCR Not Detected (NotDetected); Influenza A PCR Not Detected (NotDetected); Influenza B PCR Not Detected (NotDetected); Mycoplasma pneumoniae PCR Not Detected (NotDetected); Parainfluenza Virus 1 PCR Not Detected (NotDetected); Parainfluenza Virus 2 PCR Not Detected (NotDetected); Parainfluenza Virus 3 PCR Not Detected (NotDetected); Parainfluenza Virus 4 PCR Not Detected (NotDetected); Respiratory Syncytial VirusPCR Not Detected (NotDetected); Rhinovirus/Enterovirus PCR Not Detected (NotDetected)
--- NOTE | 2024-05-10 14:28 | Emergency Department Note ---
Impression & Plan COVID-19, Acute on chronic respiratory failure with hypoxemia, COPD (chronic obstructive pulmonary disease) ED Provider Note NAME: SAGAR ROBLES AGE: 83 SEX: F : 1940 ARRIVES VIA: Walk-In INFORMANT: Patient ED PROVIDER(S): Garret Draper MD CHIEF COMPLAINT: Shortness of breath, COVID exposure PLAN: Disposition: Admit MEDICAL DECISION MAKING: The patient is a 83-year-old woman with a past medical history of type 2 diabetes, History of lung cancer status post treatment, hypertension, hyperlipidemia, LVH COPD on home oxygen at night and as needed with exertion who presents to the emergency department via walk-in for evaluation of worsening shortness of breath with cough, congestion and thick yellow sputum that developed over the past 5 days in the setting of being exposed to her son who has COVID. Patient reports she usually does not need oxygen during the day when she is at rest and at night with exertion but has been using it 17/10. Of note, the patient did arrive to emergency department during time of high volume, acuity and prolonged emergency department waiting times. Critical pathways initiated from triage. On evaluation the patient is mildly dyspneic appearing no distress, afebrile with respiratory rate in the 20s, blood pressure in 180s/100s and vital signs otherwise stable. O2 saturation is in the upper 80s/in the low 90s on 4 L nasal cannula at rest which is abnormal for the patient typically per her report. EKG without overt acute ischemia. CXR demonstrates chronic interstitial thickening without focal consolidation per my preliminary independent interpretation. WBC 12.2 K with neutrophilia and right foot no left shift. H/H within the limits. Platelets within normal limits. Chemistry with bicarbonate of 38 consistent with chronic CO2 retention in the setting of COPD. Potassium 3.3 and electrolytes otherwise unremarkable. LFTs unremarkable. HS troponin 13.7, within normal limits. Biofire was positive for COVID-19. Treatment initiated with IV steroids, albuterol and Atrovent MDI, guaifenesin, flutter valve. Patient agrees plan for admission for further management. Case was discussed with Dr. Terrell, [facility] hospitalist, who will evaluate the patient for admission. Further management per admitting team. Triage Nursing notes reviewed and agree them. Prior/external medical records reviewed Vital Signs: reviewed Differential diagnosis: Reactive airway disease, pneumonia, pneumothorax, COPD, CHF, infections, cardiac ischemia, pulmonary embolism, musculoskeletal, gastrointestinal, as well as other pathologies. ER treatment provided: See below. Diagnostics interpreted by me: ECG: Sinus rhythm with sinus arrhythmia, occasional PVCs, 70 bpm, right bundle branch block, no overt ST elevation or depression, QTc 490, QRS 176. Cardiac Monitoring: An order for continuous cardiac monitoring was placed and demonstrated sinus rhythm with sinus arrhythmia and occasional PVCs, 70 bpm. Laboratory studies: See below Imaging studies: See below Consultation(s): Case was discussed with Dr. Terrell, [facility] hospitalist, who will evaluate the patient for admission. HPI: The patient is a 83-year-old woman with a past medical history of type 2 diabetes, History of lung cancer status post treatment, hypertension, hyperlipidemia, LVH COPD on home oxygen at night and as needed with exertion who presents to the emergency department via walk-in for evaluation of worsening shortness of breath with cough, congestion and thick yellow sputum that developed over the past 5 days in the setting of being exposed to her son who has COVID. Patient ports she usually does not need oxygen during the day when she is at rest and at night with exertion but has been using it /. ROS: See above HPI for pertinent positives & negatives. A total of 10 systems reviewed and were otherwise negative. VITALS:See Below PHYSICAL EXAMINATION: GENERAL: Awake, alert, mildly dyspneic-appearing, in no distress HENT: Normocephalic, atraumatic. Oropharynx unremarkable. EYES: Normal conjunctiva. Sclera non-icteric. NECK: Supple. No nuchal rigidity. FROM. No JVD. RESPIRATORY: Wheezes of bilateral lung chris with mild WOB. CARDIAC: Regular rate, normal rhythm. Extremities warm and well perfused. Pulses equal. ABDOMEN: Soft, non-distended. No tenderness to palpation. No rebound or guarding. No masses. MUSCULOSKELETAL: Chest examination reveals no tenderness. The back is symmetrical on inspection without obvious abnormality. There is no CVA tenderness to palpation. No joint edema. LOWER EXTREMITIES: Calves are equal size bilaterally and non-tender. No edema. No discoloration. NEURO: Normal sensorium. No sensory or motor deficits noted. SKIN: No rash or jaundice noted. Garret Draper MD Past Med/Surg History Problem List (Updated 05/11/24 @ 01:53 by Garret Draper MD) COPD (chronic obstructive pulmonary disease) (Acute) COVID-19 (Acute) Acute and chronic respiratory failure COVID Type 2 diabetes mellitus Acute hypotension (Acute) Hypoxia (Acute) Anaphylaxis (Acute) 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 Lumbar facet arthropathy Lumbar degenerative disc disease Cervical facet joint syndrome Bilateral sacroiliitis Allergic rhinitis with postnasal drip SOB (shortness of breath) on exertion Chronic respiratory failure with hypoxia Chronic low back pain Spasm of left trapezius muscle Cervical paraspinal muscle spasm Myofascial neck pain Acute on chronic respiratory failure with hypoxemia (Acute) Multiple pulmonary nodules Ex-smoker LVH (left ventricular hypertrophy) Kidney cysts Hepatic cyst Pancreatic cyst Hypertension (Chronic) Hypoxia (Chronic) COPD (chronic obstructive pulmonary disease) (Chronic) Mixed hyperlipidemia (Chronic) History of lung cancer (Chronic 01/27/10) Adenocarcinoma -bilateral Peripheral neuropathy (Acute) Osteopenia after menopause (Acute) Nocturnal hypoxia Thyroid disease Allergic rhinitis Right carotid bruit RBBB Lower extremity edema PAD (peripheral artery disease) Pre-diabetes Lumbar disc disease Cervical spondylolysis Medical History DVT prophylaxis Supplemental oxygen dependent O2 2 L HS History of fall FEB 2020 "MISSED A STEP" - FX 6 RIBS, HOSPITALIZED [facility] - "ALL HEALED" History of lung cancer 2009 - Adenocarcinoma s/p wedge resection of left upper lobe. Current new enlarging lung nodule DVT prophylaxis GERD (gastroesophageal reflux disease) Pulmonary nodule Enlarging- reason for procedure Bifascicular block CHRONIC; DATING BACK TO AT LEAST 03/2015 EKG AT [facility]-F/U PCP PT DOES NOT RECALL ABNORMAL EKG OR HX IRREGULAR HEART BEAT ECHO FROM 2019 SHOWED NO DEFINITE WALL MOTION ABNORMALITIES Obesity Osteoarthritis Hypertension Hyperlipidemia Chronic obstructive pulmonary disease Severe for PCP records Surgical History History of cataract surgery B/L done in 2019 History of lung surgery (06/04/20) Right Video Assisted Thoracoscopy, Wedge Resection Right Upper Middle Lobe Lesion Dr. Webb 06/04/2020 History of total knee replacement LEFT History of arthroplasty of left knee Hx of oophorectomy LEFT History of colonoscopy (12/28/18) Tubular Adenoma History of tooth extraction History of tonsillectomy History of lobectomy of lung (01/27/10) LL LOBECTOMY 2/2 CANCER 1. Left video assisted thorascopic surgery. 2. Wedge resectionleft upper lobe lesion with frozen section. 3. Left thoracotomy. 4. Leftupper lobectomy. 5. Node sampling inferior pulmonary ligament, aortopulmonarywindow node and lobar nodes. Family History Unknown Silicosis Mother Ovarian cancer Cancer Sister Cancer Breast cancer Grandmother Breast cancer Denies family history of Prostate cancer Diabetes Myocardial infarction Lung cancer Colorectal cancer Stroke Social History Smoking Status: Former smoker Tobacco Type: Cigarettes Age Started Using Tobacco: 19; Age Quit Using Tobacco: 63; packs per day: 0.5; Cigarettes Per Day: 10; Second Hand Exposure: No; Do You Dip or Chew Tobacco: No; Hx Alcohol Use: No Hx Substance Use: No Preferred Language: Japanese Communication Ability: Effective Visual Impairment: Limited Hearing Ability: Normal Rf Design Engineer Required: No Beliefs That Will Affect Care: None marital status: Current Living Situation: Spouse Current Living Situation Comment: 2 story house current occupational status: retired current occupation: used to work for [employer] How many Children do You have: 1 Feels Safe at Home: Yes Childhood Exposure to Second-Hand Smoke: Yes Diet: regular caffeine: Yes Dental Care, Regularly: Yes Physical Activity Frequency: Does not Exercise Seatbelt Use: always Sunscreen Use: No Assistive Devices: Cane Allergies Allergies Allergy/AdvReac Type Severity Reaction Status Date / Time amoxicillin [From Augmentin] Allergy Severe Anaphylaxis Verified 04/26/24 14:26 shellfish derived Allergy Severe HIVES, Verified 04/26/24 14:26 SWOLLEN LIP , ANAPHYLAXIS Penicillins Allergy Unknown Unknonw - Unverified 04/26/24 14:26 On file w/ [facility] clavulanic acid AdvReac Unknown Itchy ski Verified 04/26/24 14:26 [From Augmentin] Home Meds Home Medications Medication Instructions Recorded Confirmed ascorbic acid (vitamin C) 1,000 mg 1 g PO QDL 01/16/18 05/10/24 tablet (Vitamin C) cyanocobalamin (vitamin B-12) 1,000 mcg PO QDL 01/16/18 05/10/24 1,000 mcg tablet (Vitamin B-12) omega-3s 300 [id number]-ncw-other 1 tab PO QDL 01/16/18 05/10/24 [id number] oil 1,000 mg capsule ([place]-3 Fish Oil) cholecalciferol (vitamin D3) 25 1,000 units PO QDL 10/26/18 05/10/24 mcg (1,000 unit) capsule aspirin 81 mg tablet,delayed 81 mg PO DAILY 03/15/23 05/10/24 release celecoxib 200 mg capsule (Celebrex) 200 mg PO BID 02/13/24 05/10/24 fluticasone propionate 50 1 spray intranasal BID 04/22/24 05/10/24 mcg/actuation nasal spray,suspension hydrochlorothiazide 25 mg tablet 25 mg PO DAILY 04/22/24 05/10/24 levocetirizine 5 mg tablet 5 mg PO HS 04/22/24 05/10/24 benazepril 40 mg tablet 40 mg PO DAILY 04/24/24 05/10/24 montelukast 10 mg tablet 10 mg PO DAILY 04/24/24 05/10/24 Previous Rx's Medication Instructions Recorded acetaminophen 325 mg tablet 650 mg (2 x 325 mg) PO Q4H PRN 03/05/20 pain #20 tabs amlodipine 10 mg tablet 10 mg PO QDL #90 tabs 07/24/23 escitalopram oxalate 10 mg tablet 15 mg (1.5 x 10 mg) PO DAILY #135 10/17/23 tabs albuterol sulfate 90 mcg/actuation 2 puff inhalation Q4H PRN Wheezing 11/30/23 aerosol inhaler (Ventolin HFA) #18 grams fluticasone furoate 200 1 inh inhalation DAILY #60 ea 11/30/23 mcg-vilanterol 25 mcg/dose inhalation powder (Breo Ellipta) tiotropium bromide 2.5 2 puff inhalation DAILY #4 grams 11/30/23 mcg/actuation mist for inhalation (Spiriva Respimat) Portable Oxygen #1 ea 02/14/24 dupilumab 300 mg/2 mL subcutaneous 300 mg (2 mL) subcut Q14D #2 mL 02/16/24 pen injector ([email or web address]) epinephrine 0.3 mg/0.3 mL 0.3 mg (0.3 mL) IM Q4H PRN 04/23/24 injection, auto-injector (EpiPen) anaphylaxis #2 ea metformin 500 mg tablet,extended 500 mg PO QPM #30 tabs 04/26/24 release 24 hr pravastatin 80 mg tablet 40 mg (1/2 x 80 mg) PO QPM #45 tabs 04/26/24 Results & Data (ED) Vital Signs Vital Signs - 24 hr 05/10/24 11:18 05/10/24 13:39 05/10/24 13:39 Temperature 37.2 C Temperature Source Oral Pulse Rate 76 Pulse Rate [Apical] 89 Pulse Rhythm Regular Pulse Strength Normal Respiratory Rate 18 22 Respiratory Depth Normal Blood Pressure 146/68 H Blood Pressure [Right Arm] 181/106 H Blood Pressure Mean 94 Blood Pressure Mean [Right Arm] 131 Blood Pressure Position Sitting Pulse Oximetry 91 95 95 Oxygen Delivery Method Room Air Nasal Cannula Nasal Cannula Oxygen Flow Rate 4 4 Sepsis Recent Fever Within 48 Hours No Sepsis New/Unexplained Change in Mental Status N/A Sepsis Action Taken by Nursing No Action Required 05/10/24 13:39 05/10/24 13:56 Temperature Temperature Source Pulse Rate 74 Pulse Rate [Apical] Pulse Rhythm Pulse Strength Respiratory Rate 26 H Respiratory Depth Blood Pressure Blood Pressure [Right Arm] Blood Pressure Mean Blood Pressure Mean [Right Arm] Blood Pressure Position Pulse Oximetry 92 Oxygen Delivery Method Nasal Cannula Oxygen Flow Rate 4 Sepsis Recent Fever Within 48 Hours Sepsis New/Unexplained Change in Mental Status Sepsis Action Taken by Nursing Laboratory Data Attestation: I reviewed the patient's lab results. 05/10/24 12:20 05/10/24 12:20 Lab Results 05/10/24 05/10/24 Range/Units 12:20 12:22 WBC 12.26 H (4.8-10.8) K/ul RBC 4.88 (4.20-5.40) M/uL Hgb 14.4 (12.0-16.0) g/dl Hct 45.9 (37.0-47.0) % MCV 94.1 (80.0-100.0) fL MCH 29.5 (25.0-34.0) pg MCHC 31.4 L (32.0-36.0) g/dL RDW Std Deviation 47.9 H (36.4-46.3) fL RDW Coeff of Mariusz 13.8 (11.5-14.5) % Plt Count 162 (130-400) K/uL MPV 11.3 (9.4-12.4) fL Immature Gran % (Auto) 0.4 % Neut % (Auto) 79.5 % Lymph % (Auto) 11.8 % [place] % (Auto) 8.1 % Eos % (Auto) 0.0 % Baso % (Auto) 0.2 % Neut # (Auto) 9.74 H (1.40-6.50) K/uL Lymph # (Auto) 1.45 (1.20-3.40) K/uL [place] # (Auto) 0.99 H (0.11-0.59) K/uL Eos # (Auto) 0.00 (0.00-0.50) K/uL Baso # (Auto) 0.03 (0.00-0.20) K/uL Immature Gran # (Auto) 0.05 (0.01-0.20) K/uL PT 10.5 (9.0-12.0) Seconds INR 1.0 (0.9-1.1) APTT 27 (21-31) Seconds PTT Ratio 1.0 Sodium 135 L (136-145) mmol/L Potassium 3.3 L (3.5-5.1) mmol/L Chloride 92 L (98-107) mmol/L Carbon Dioxide 38 H (21-32) mmol/L Anion Gap 5 (3-11) BUN 15 (6-23) mg/dl Creatinine 0.67 (0.6-1.2) mg/dl Est Cr Clr Drug Dosing Not Reportable eGFR 87.21 BUN/Creatinine Ratio 22.4 H (10-20) Glucose 228 H (70-99(Fasting)) mg/dl Calcium 9.0 (8.6-10.3) mg/dl Magnesium 1.7 (1.7-2.4) mg/dl Total Bilirubin 1.3 H (0.2-1.0) mg/dl AST 11 L (13-39) U/L ALT 9 (7-52) U/L Alkaline Phosphatase 65 (34-104) U/L Troponin I High Sens 13.7 (0-14) pg/ml Total Protein 7.1 (6.0-8.3) gm/dl Albumin 3.5 (3.4-5.0) gm/dl Globulin 3.6 (2.5-4.0) gm/dl Albumin/Globulin Ratio 1.0 (0.9-2) Procalcitonin 0.06 (0-0.5) ng/ml Adenovirus (PCR) Not Detected (NotDetected) B. pertussis DNA (PCR) Not Detected (NotDetected) B.parapertussis DNA PCR Not Detected (NotDetected) C. pneumoniae DNA (PCR) Not Detected (NotDetected) Coronavirus OC43 (PCR) Not Detected (NotDetected) Coronavirus HKU1 (PCR) Not Detected (NotDetected) Coronavirus 229E (PCR) Not Detected (NotDetected) SARS-CoV-2 (PCR) DETECTED A (NotDetected) Coronavirus NL63 (PCR) Not Detected (NotDetected) Human Metapneumovir PCR Not Detected (NotDetected) Influenza Type A (PCR) Not Detected (NotDetected) Influenza Type B (PCR) Not Detected (NotDetected) M. pneumoniae (PCR) Not Detected (NotDetected) Parainfluenza 1 (PCR) Not Detected (NotDetected) Parainfluenza 2 (PCR) Not Detected (NotDetected) Parainfluenza 3 (PCR) Not Detected (NotDetected) Parainfluenza 4 (PCR) Not Detected (NotDetected) RSV (PCR) Not Detected (NotDetected) Entero/Rhino (PCR) Not Detected (NotDetected) Administered Medications Cetirizine HCl (Cetirizine Hcl 10 Mg Tablet) 10 mg PO HS MAGGI Stop: 06/09/24 20:59 Last Admin: 05/10/24 19:59 Dose: 10 mg Documented By: MPS Doxycycline Hyclate (Doxycycline Hyclate 100 Mg Cap) 100 mg PO BID MAGGI Stop: 05/15/24 20:59 Last Admin: 05/10/24 19:59 Dose: 100 mg Documented By: MPS Enoxaparin Sodium (Enoxaparin Inj 40 Mg/0.4 Ml Syr) 40 mg SQ Q24H MAGGI Stop: 06/09/24 20:29 Last Admin: 05/10/24 21:39 Dose: Not Given Documented By: MPS Insulin Aspart (Insulin Aspart Per Unit Charge) 0 units SC ACHS MAGGI Stop: 06/09/24 16:29 Last Admin: 05/10/24 21:36 Dose: 1 units Documented By: RIKY Co-signed By: TONY Admin: 05/10/24 18:22 Dose: 2 units Documented By: ALDO Co-signed By: EMILIE Pravastatin Sodium (Pravastatin Sod 40 Mg Tab) 40 mg PO QPM MAGGI Stop: 06/09/24 20:59 Last Admin: 05/10/24 19:59 Dose: 40 mg Documented By: RIKY Discontinued Medications Albuterol (Albuterol Hfa 8 Gm Inhaler) 2 puffs INH NOW ONE Stop: 05/10/24 14:29 Last Admin: 05/10/24 18:11 Dose: Not Given Documented By: ALDO Albuterol (Ipratropium [place]/Albuterol Respimat Inh) 1 puffs INH NOW STA Stop: 05/10/24 14:29 Last Admin: 05/10/24 18:12 Dose: Not Given Documented By: ALDO Dexamethasone Sodium Phosphate (DexamethasonePf 10 Mg/Ml Vial) 6 mg IV NOW ONE Stop: 05/10/24 14:29 Last Admin: 05/10/24 18:12 Dose: 6 mg Documented By: ALDO Guaifenesin (Guaifenesin 600 Mg Tabcr) 600 mg PO NOW STA Stop: 05/10/24 14:29 Last Admin: 05/10/24 18:11 Dose: 600 mg Documented By: ALDO Remdesivir 200 mg/ Sodium (Chloride) 250 mls @ 125 mls/hr IV ONE STA Stop: 05/10/24 18:24 Last Infusion: 05/10/24 21:39 Dose: Infused Documented By: Admin: 05/10/24 17:26 Dose: 125 mls/hr Documented By: ALDO Potassium Chloride (Potassium Chloride Crtab 20 Meq Tabcr) 40 meq PO NOW STA Stop: 05/10/24 14:30 Last Admin: 05/10/24 18:11 Dose: 40 meq Documented By: ALDO Imaging Data Radiologist's Impression: Chest X-Ray 05/10/24 11:22 XR chest 1V not portable CLINICAL HISTORY: Chest pain, nonspecific COMPARISON STUDY: Chest CT March 05, 2024. Chest radiograph April 22, 2024. FINDINGS: There are stable postoperative findings within the chest. 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 This is chronic. There is no superimposed consolidation. Cardiomegaly is again noted. There is no evidence for pulmonary edema. Multiple old bilateral rib deformities are present. The appearance of the chest is unchanged. IMPRESSION: No acute cardiopulmonary findings. No change in appearance of the chest. ACT 112: Negative or not required by law. Electronically signed by: Damion Guerrier M.D. 05/10/2024 1:15 PM Discharge Plan Visit Data Chief Complaint: Respiratory Problems Stated Complaint: TROUBLE BREATHING ED Provider: Garret Draper Discharge Problem: COVID-19, Acute on chronic respiratory failure with hypoxemia, COPD (chronic obstructive pulmonary disease) Patient Disposition: Admitted As Inpatient Discharge Instructions Interventions: ED Discharge Assessment Last Done: 05/10/24 15:59 Discharge Problem: COPD (chronic obstructive pulmonary disease) Qualifiers: COPD type: COPD with acute exacerbation Qualified Code(s): J44.1 - Chronic obstructive pulmonary disease with (acute) exacerbation
--- NOTE | 2024-05-10 14:40 | Hospitalist Progress Note ---
Date of Service May 10, 2024 Assessment & Plan (1) COVID: Plan: Acute on chronic hypoxic respiratory failure due to COVID Chest x-ray without evidence of superimposed pneumonia Continue dexamethasone, remdesivir. 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 Do not hyperoxygenated greater than 94% - doxy 100mg BID DM2 Hold metformin, SSI while admitted Goal [id number] Pharmacy glycemic consult on board while on steroids Last A1c 6.6% Chronic stable issues: Hyperlipidemia: Continue pravastatin Anxiety/depression: Continue Lexapro Hypertension: Continue aspirin, BenzePril History of lung adenocarcinoma s/p left upper lobe wedge resection 2009, right upper lobe wedge resection 2020: With nodules followed outpatient by pulmonology. No acute change in management DVT prophylaxis: Lovenox Disposition: MSO CODE STATUS: Full code Diet: Heart healthy/DM2 (2) Acute and chronic respiratory failure: (3) Type 2 diabetes mellitus: (4) COPD (chronic obstructive pulmonary disease): Parish Howard is an 83-year-old male with a past medical history of type II DM, lung cancer, COPD with chronic respiratory failure on home oxygen, peripheral neuropathy, anaphylactic penicillin allergy who presents to the emergency department with 5 days of cough, congestive, with thick sputum production and who has a family however recently had COVID. She has been using her oxygen throughout the day which she normally only uses at night. On ER evaluation she is on 4 L of oxygen, tachypneic, and wheezy. She has a leukocytosis without left shift. BioFire is positive for COVID. Chest x-ray shows no acute findings no evidence of superimposed pneumonia. She is recommended for admission for acute hypoxic respiratory failure due to COVID-pneumonia. Seen at the bedside. Reports 4 to 5 days of feeling chilly, with change sputum production to thick yellow, cough, shortness of breath. Increase in oxygen requirements from 2 L at night to daily 2-3 L at home and still feeling shortness of breath. No chest pain. No nausea/vomiting/diarrhea/constipation. No syncope. Overall is tired and mostly worried about pneumonia. She took all of her medications this morning. Medical History: Reviewed Medications: Reviewed Surgical History: Reviewed Family history: Reviewed Allergies: Reviewed Social History: Reviewed Code Status: Full Physical Exam Physical Exam: General: A&Ox3. NAD. Cooperative. HEENT: Atraumatic, normocephalic. Vision and hearing grossly intact Pulm: Diminished, crackles in the bases which clear bilaterally. Diffuse and expiratory wheezes improved on second reassessment symmetrical chest rise. No increased work of breathing. No respiratory distress. Cardiac: RRR, -mrg. Radial pulses intact and symmetrical. Abdominal: Nontender, nondistended, soft. BS present. Results & Data Results & Data Vital Signs (Past 12 Hours) Vital Signs Temp Pulse Pulse Resp BP BP Pulse Ox 05/10/24 13:56 74 05/10/24 13:39 26 H 92 05/10/24 13:39 89 22 181/106 H 95 05/10/24 13:39 95 05/10/24 11:18 37.2 C 76 18 146/68 H 91 O2 Del Method O2 Flow Rate 05/10/24 13:56 05/10/24 13:39 Nasal Cannula 4 05/10/24 13:39 Nasal Cannula 4 05/10/24 13:39 Nasal Cannula 4 05/10/24 11:18 Room Air PG Care Time/CCT Total # of Minutes Spent Total Time Spent with Patient: Total time spent is greater than 50% in coordination of care (as documented) at patient's floor/unit and/or counseling patient: Coding Level of Care Code 31533 SUB INP/OBS CARE 3/50MIN Diagnoses COVID U07.1 Acute and chronic respiratory failure J96.20 Type 2 diabetes mellitus E11.9 COPD (chronic obstructive pulmonary disease) J44.9
[2024-05-10 14:59] LABS: Magnesium 1.7 mg/dl (1.7-2.4)
--- NOTE | 2024-05-10 15:33 | Electrocardiogram Report ---
Test Reason : Blood Pressure : */* mmHG Vent. Rate : 70 BPM Atrial Rate : 70 BPM P-R Int : 162 ms QRS Dur : 176 ms QT Int : 454 ms P-R-T Axes : 2 -86 -33 degrees QTcB Int : 490 ms Sinus rhythm with marked sinus arrhythmia with occasional Premature ventricular complexes Left axis deviation Right bundle branch block T wave abnormality, consider lateral ischemia Abnormal ECG When compared with ECG of 22-Apr-2024 10:18, Premature ventricular complexes are now Present T wave inversion now evident in Inferior leads T wave inversion now evident in Lateral leads Confirmed by Serafin Miller ([id number]) on 05/10/2024 3:32:54 PM Referred By: REFERRED SELF Confirmed By: Serafin Miller
[2024-05-10] MEDS ORDERED: DEXTROSE 50% 50 ML SYRINGE IV PRN (16:25)
[2024-05-10] MEDS ORDERED: PHARMACY GLYCEMIC MGMT CONSULT PRN (16:25)
[2024-05-10] MEDS ORDERED: GLUCOSE 40% GEL 15 GM TUBE PO PRN (16:25)
[2024-05-10] MEDS ORDERED: GLUCOSE 10 TAB/TUBE PO PRN (16:25)
[2024-05-10] MEDS ORDERED: CARBOHYDRATES FOR HYPOGLYCEMIA PO PRN (16:25)
[2024-05-10] MEDS ORDERED: GLUCAGON FOR INJ 1 MG VIAL SQ PRN (16:25)
[2024-05-10] MEDS ORDERED: Patient's HEIGHT &/or WEIGHT Needed STA (16:34)
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
[2024-05-10] MEDS: REMDESIVIR 200 MG in SODIUM CHLORIDE 0.9% 210 ML IV STA (17:26)
[2024-05-10] MEDS: ALBUTEROL HFA 8 GM INHALER INH ONE (18:11)
[2024-05-10] MEDS: POTASSIUM CHLORIDE CRTAB 20 MEQ TABCR PO STA (18:11)
[2024-05-10] MEDS: guaiFENesin 600 MG TABCR PO STA (18:11)
[2024-05-10] MEDS: IPRATROPIUM BROMIDE/ALBUTEROL respimat INH INH STA (18:12)
[2024-05-10] MEDS: dexAMETHasone**PF** 10 MG/ML VIAL IV ONE (18:12)
[2024-05-10] MEDS: INSULIN ASPART PER UNIT CHARGE SC SCH (18:22)
[2024-05-10] MEDS: CETIRIZINE HCL 10 MG TABLET PO SCH (19:59)
[2024-05-10] MEDS: DOXYCYCLINE HYCLATE 100 MG CAP PO SCH (19:59)
[2024-05-10] MEDS: PRAVASTATIN SOD 40 MG TAB PO SCH (19:59)
[2024-05-10] MEDS: ENOXAPARIN INJ 40 MG/0.4 ML SYR SQ SCH (21:39)
[2024-05-11 07:30] LABS: Basophils # (auto) 0.01 K/uL (0.00-0.20); Basophils % (auto) 0.1 %; Hematocrit (blood only) 44.2 % (37.0-47.0); Hemoglobin 14.2 g/dl (12.0-16.0); Immature Granulocytes # (auto) 0.04 K/uL (0.01-0.20); Immature Granulocytes % (auto) 0.5 %; Lymphocytes # (auto) 0.95 K/uL (1.20-3.40); Mean Corpuscular Hemoglobin 30.4 pg (25.0-34.0); Mean Corpuscular Hgb Conc 32.1 g/dL (32.0-36.0); Mean Corpuscular Volume 94.6 fL (80.0-100.0); Mean Platelet Volume 11.5 fL (9.4-12.4); Monocytes # (auto) 0.19 K/uL (0.11-0.59); Monocytes % (auto) 2.2 %; Neutrophils # (auto) 7.42 K/uL (1.40-6.50); Neutrophils % (auto) 86.2 %; Platelet Count 156 K/uL (130-400); RDW Coefficient of Variation 13.6 % (11.5-14.5); RDW Standard Deviation 47.8 fL (36.4-46.3); Red Blood Count 4.67 M/uL (4.20-5.40); White Blood Count 8.61 K/ul (4.8-10.8)
[2024-05-11 08:04] LABS: BUN Creatinine Ratio 37.1 (10-20); Calcium 8.6 mg/dl (8.6-10.3); Creatinine Clr Calc Pharmacy 84.2 ml/min; Potassium 4.3 mmol/L (3.5-5.1)
[2024-05-11] MEDS: ESCITALOPRAM OXALATE 10 MG TAB PO SCH (08:16)
[2024-05-11] MEDS: ENALAPRIL MALEATE 10 MG TAB PO SCH (08:16)
[2024-05-11] MEDS: MONTELUKAST SODIUM 10 MG TABLET PO SCH (08:16)
[2024-05-11] MEDS: hydroCHLOROthiazide 25 MG TAB PO SCH (08:17)
[2024-05-11] MEDS: FLUTICASONE/VILANTEROL 200/25MCG 14 PUFFS/INHALER INH SCH (08:18)
[2024-05-11] MEDS: UMECLIDINIUM BROMIDE 62.5MCG/BLISTER 7 PUFFS/INHALER INH SCH (08:19)
[2024-05-11] MEDS: LANTUS PER UNIT CHARGE SC SCH ×2 (08:33→20:49)
--- NOTE | 2024-05-11 08:47 | History & Physical Report ---
Date of Service May 10, 2024 Assessment & Plan (1) COVID: Plan: Initial note 05/10 erroneously entered as Progress Note. Copied as H&P here, progress note flagged for deletion. Date of service for this note 05/10/24 Acute on chronic hypoxic respiratory failure due to COVID Chest x-ray without evidence of superimposed pneumonia Continue dexamethasone, remdesivir. 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 Do not hyperoxygenated greater than 94% - doxy 100mg BID DM2 Hold metformin, SSI while admitted Goal [id number] Pharmacy glycemic consult on board while on steroids Last A1c 6.6% Chronic stable issues: Hyperlipidemia: Continue pravastatin Anxiety/depression: Continue Lexapro Hypertension: Continue aspirin, BenzePril History of lung adenocarcinoma s/p left upper lobe wedge resection 2009, right upper lobe wedge resection 2020: With nodules followed outpatient by pulmonology. No acute change in management DVT prophylaxis: Lovenox Disposition: MSO CODE STATUS: Full code Diet: Heart healthy/DM2 (2) Acute and chronic respiratory failure: (3) Type 2 diabetes mellitus: (4) COPD (chronic obstructive pulmonary disease): Admission and Anticipated Discharge Date Admission Date: May 10, 2024 History of Present Illness Primary Care Provider: Nesha Jones DO Howard is an 83-year-old male with a past medical history of type II DM, lung cancer, COPD with chronic respiratory failure on home oxygen, peripheral neuropathy, anaphylactic penicillin allergy who presents to the emergency department with 5 days of cough, congestive, with thick sputum production and who has a family however recently had COVID. She has been using her oxygen throughout the day which she normally only uses at night. On ER evaluation she is on 4 L of oxygen, tachypneic, and wheezy. She has a leukocytosis without left shift. BioFire is positive for COVID. Chest x-ray shows no acute findings no evidence of superimposed pneumonia. She is recommended for admission for acute hypoxic respiratory failure due to COVID-pneumonia. Seen at the bedside. Reports 4 to 5 days of feeling chilly, with change sputum production to thick yellow, cough, shortness of breath. Increase in oxygen requirements from 2 L at night to daily 2-3 L at home and still feeling shortness of breath. No chest pain. No nausea/vomiting/diarrhea/constipation. No syncope. Overall is tired and mostly worried about pneumonia. She took all of her medications this morning. Medical History: Reviewed Medications: Reviewed Surgical History: Reviewed Family history: Reviewed Allergies: Reviewed Social History: Reviewed Code Status: Full Allergies Allergy/AdvReac Type Severity Reaction Status Date / Time amoxicillin [From Augmentin] Allergy Severe Anaphylaxis Verified 04/26/24 14:26 shellfish derived Allergy Severe HIVES, Verified 04/26/24 14:26 SWOLLEN LIP , ANAPHYLAXIS Penicillins Allergy Unknown Unknonw - Unverified 04/26/24 14: [facility] clavulanic acid AdvReac Unknown Itchy ski Verified 04/26/24 14:26 [From Augmentin] Home Medications Medication Instructions Recorded Confirmed Type ascorbic acid (vitamin C) 1,000 mg 1 g PO QDL 01/16/18 05/10/24 History tablet (Vitamin C) cyanocobalamin (vitamin B-12) 1,000 mcg PO QDL 01/16/18 05/10/24 History 1,000 mcg tablet (Vitamin B-12) omega-3s 300 tr-jsw-zst-other 1 tab PO QDL 01/16/18 05/10/24 History mfnib5d-imye oil 1,000 mg capsule ([place]-3 Fish Oil) cholecalciferol (vitamin D3) 25 1,000 units PO QDL 10/26/18 05/10/24 History mcg (1,000 unit) capsule acetaminophen 325 mg tablet 650 mg (2 x 325 mg) PO Q4H PRN 03/05/20 05/10/24 Rx pain #20 tabs aspirin 81 mg tablet,delayed 81 mg PO DAILY 03/15/23 05/10/24 History release amlodipine 10 mg tablet 10 mg PO QDL #90 tabs 07/24/23 05/10/24 Rx escitalopram oxalate 10 mg tablet 15 mg (1.5 x 10 mg) PO DAILY #135 10/17/23 05/10/24 Rx tabs albuterol sulfate 90 mcg/actuation 2 puff inhalation Q4H PRN Wheezing 11/30/23 05/10/24 Rx aerosol inhaler (Ventolin HFA) #18 grams fluticasone furoate 200 1 inh inhalation DAILY #60 ea 11/30/23 05/10/24 Rx mcg-vilanterol 25 mcg/dose inhalation powder (Breo Ellipta) tiotropium bromide 2.5 2 puff inhalation DAILY #4 grams 11/30/23 05/10/24 Rx mcg/actuation mist for inhalation (Spiriva Respimat) celecoxib 200 mg capsule (Celebrex) 200 mg PO BID 02/13/24 05/10/24 History Portable Oxygen #1 ea 02/14/24 04/26/24 Rx dupilumab 300 mg/2 mL subcutaneous 300 mg (2 mL) subcut Q14D #2 mL 02/16/24 05/10/24 Rx pen injector (Dupixent) fluticasone propionate 50 1 spray intranasal BID 04/22/24 05/10/24 History mcg/actuation nasal spray,suspension hydrochlorothiazide 25 mg tablet 25 mg PO DAILY 04/22/24 05/10/24 History levocetirizine 5 mg tablet 5 mg PO HS 04/22/24 05/10/24 History epinephrine 0.3 mg/0.3 mL 0.3 mg (0.3 mL) IM Q4H PRN 04/23/24 05/10/24 Rx injection, auto-injector (EpiPen) anaphylaxis #2 ea benazepril 40 mg tablet 40 mg PO DAILY 04/24/24 05/10/24 History montelukast 10 mg tablet 10 mg PO DAILY 04/24/24 05/10/24 History metformin 500 mg tablet,extended 500 mg PO QPM #30 tabs 04/26/24 05/10/24 Rx release 24 hr pravastatin 80 mg tablet 40 mg (1/2 x 80 mg) PO QPM #45 tabs 04/26/24 05/10/24 Rx Past Med/Surg History Problem List (Updated 05/11/24 @ 01:53 by Garret Draper MD) COPD (chronic obstructive pulmonary disease) (Acute) COVID-19 (Acute) Acute and chronic respiratory failure COVID Type 2 diabetes mellitus Acute hypotension (Acute) Hypoxia (Acute) Anaphylaxis (Acute) 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 Lumbar facet arthropathy Lumbar degenerative disc disease Cervical facet joint syndrome Bilateral sacroiliitis Allergic rhinitis with postnasal drip SOB (shortness of breath) on exertion Chronic respiratory failure with hypoxia Chronic low back pain Spasm of left trapezius muscle Cervical paraspinal muscle spasm Myofascial neck pain Acute on chronic respiratory failure with hypoxemia (Acute) Multiple pulmonary nodules Ex-smoker LVH (left ventricular hypertrophy) Kidney cysts Hepatic cyst Pancreatic cyst Hypertension (Chronic) Hypoxia (Chronic) COPD (chronic obstructive pulmonary disease) (Chronic) Mixed hyperlipidemia (Chronic) History of lung cancer (Chronic 01/27/10) Adenocarcinoma -bilateral Peripheral neuropathy (Acute) Osteopenia after menopause (Acute) Nocturnal hypoxia Thyroid disease Allergic rhinitis Right carotid bruit RBBB Lower extremity edema PAD (peripheral artery disease) Pre-diabetes Lumbar disc disease Cervical spondylolysis Medical History DVT prophylaxis Supplemental oxygen dependent O2 2 L HS History of fall FEB 2020 "MISSED A STEP" - FX 6 RIBS, HOSPITALIZED [facility] - "ALL HEALED" History of lung cancer 2009 - Adenocarcinoma s/p wedge resection of left upper lobe. Current new enlarging lung nodule DVT prophylaxis GERD (gastroesophageal reflux disease) Pulmonary nodule Enlarging- reason for procedure Bifascicular block CHRONIC; DATING BACK TO AT LEAST 03/2015 EKG AT [facility]U PCP PT DOES NOT RECALL ABNORMAL EKG OR HX IRREGULAR HEART BEAT ECHO FROM 2019 SHOWED NO DEFINITE WALL MOTION ABNORMALITIES Obesity Osteoarthritis Hypertension Hyperlipidemia Chronic obstructive pulmonary disease Severe for PCP records Surgical History History of cataract surgery B/L done in 2019 History of lung surgery (06/04/20) Right Video Assisted Thoracoscopy, Wedge Resection Right Upper Middle Lobe Lesion Dr. Webb 06/04/2020 History of total knee replacement LEFT History of arthroplasty of left knee Hx of oophorectomy LEFT History of colonoscopy (12/28/18) Tubular Adenoma History of tooth extraction History of tonsillectomy History of lobectomy of lung (01/27/10) LL LOBECTOMY 2/2 CANCER 1. Left video assisted thorascopic surgery. 2. Wedge resectionleft upper lobe lesion with frozen section. 3. Left thoracotomy. 4. Leftupper lobectomy. 5. Node sampling inferior pulmonary ligament, aortopulmonarywindow node and lobar nodes. Family History Unknown Silicosis Mother Ovarian cancer Cancer Sister Cancer Breast cancer Grandmother Breast cancer Denies family history of Prostate cancer Diabetes Myocardial infarction Lung cancer Colorectal cancer Stroke Social History Smoking Status: Former smoker Tobacco Type: Cigarettes Age Started Using Tobacco: 19; Age Quit Using Tobacco: 63; packs per day: 0.5; Cigarettes Per Day: 10; Second Hand Exposure: No; Do You Dip or Chew Tobacco: No; Hx Alcohol Use: No Hx Substance Use: No Preferred Language: Grenadian Communication Ability: Effective Visual Impairment: Limited Hearing Ability: Normal Photo Editor Required: No Beliefs That Will Affect Care: None marital status: Current Living Situation: Spouse Current Living Situation Comment: 2 story house current occupational status: retired current occupation: used to work for [employer] How many Children do You have: 1 Feels Safe at Home: Yes Childhood Exposure to Second-Hand Smoke: Yes Diet: regular caffeine: Yes Dental Care, Regularly: Yes Physical Activity Frequency: Does not Exercise Seatbelt Use: always Sunscreen Use: No Assistive Devices: Cane Physical Exam Physical Exam: General: A&Ox3. NAD. Cooperative. HEENT: Atraumatic, normocephalic. Vision and hearing grossly intact Pulm: Diminished, crackles in the bases which clear bilaterally. Diffuse and expiratory wheezes improved on second reassessment symmetrical chest rise. No increased work of breathing. No respiratory distress. Cardiac: RRR, -mrg. Radial pulses intact and symmetrical. Abdominal: Nontender, nondistended, soft. BS present. Results & Data Results & Data Vital Signs (Past 12 Hours) Vital Signs Temp Pulse Resp BP Pulse Ox O2 Del Method O2 Flow Rate 05/11/24 07:46 36.5 C 67 18 178/71 H 97 Nasal Cannula 4 Code Status & VTE Plan VTE Prophylaxis Plan VTE Prophylaxis will be ordered: Yes PG Care Time/CCT Total # of Minutes Spent Total Time Spent with Patient: Total time spent is greater than 50% in coordination of care (as documented) at patient's floor/unit and/or counseling patient: Coding Level of Care Code 48486 INT INP/OBS CARE 3/75MIN Diagnoses COVID U07.1 Acute and chronic respiratory failure J96.20 Type 2 diabetes mellitus E11.9 COPD (chronic obstructive pulmonary disease) J44.9
[2024-05-11] MEDS ORDERED: DEXAMETHASONE SOD INJ 4 MG/ML VIAL IV SCH (09:00)
[2024-05-11] MEDS: BENZONATATE 100 MG CAPSULE PO PRN (09:19)
[2024-05-11] MEDS: dexAMETHasone 6 MG in SYRINGE 0 ML IV SCH (09:19)
[2024-05-11] MEDS: DOCUSATE SODIUM 100 MG CAP PO PRN (09:38)
[2024-05-11 10:38] LABS: Estimated Average Glucose 189 mg/dl; Hemoglobin A1C 8.2 % (4.5-5.6)
[2024-05-11] MEDS: ALBUT/IPRATROP 3MG/0.5MG NEB 3 ML VIAL NEB PRN (11:07)
--- NOTE | 2024-05-11 11:12 | Hospitalist Progress Note ---
"Date of Service May 11, 2024 Assessment & Plan (1) COVID: Plan: Anita is an 83-year-old female with a past medical history of type II DM, lung cancer, COPD with chronic respiratory failure on home oxygen (3-4L), peripheral neuropathy, anaphylactic penicillin allergy who presents to the emergency department with 5 days of cough, congestive, with thick sputum production and COVID exposure. On admission found to be COVID positive, CXR without evidence of superimposed pneumonia. Admitted for supplemental oxygen, IV steroids and remdesivir. 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 Doxycycline 100mg BID PO for COPD exacerbation Supportive care: IS, FV, prn nebs Continue home inhalers. Wean O2 as able, baseline in 3-4L. Goal is O2 90-94% to prevent over-oxygenation #DM2 A1c 8.2 (prior 6.6) Home meds: metformin ER 500mg once daily - consider increasing at discharge Pharmacy glycemic consult while on steroids - lantus added to SSI Hyperlipidemia: Continue pravastatin Anxiety/depression: Continue Lexapro Hypertension: Continue aspirin, BenzePril, amlodopine, HCTZ History of lung adenocarcinoma s/p left upper lobe wedge resection 2009, right upper lobe wedge resection 2020: With nodules followed outpatient by pulmonology. No acute change in management DVT prophylaxis: Lovenox Disposition: continued inpatient stay, possible d/c tomorrow (2) Acute and chronic respiratory failure: (3) Type 2 diabetes mellitus: (4) COPD (chronic obstructive pulmonary disease): Admission and Anticipated Discharge Date Admission Date: May 10, 2024 Supervising Physician Co-Signing Physician Notes PA Supervision Note: I did not personally see or examine the patient today, but I verified all barajas points of KYLAH Bello's assessment and plan with the following exceptions/additions: Added on home aspirin and restarted home vitamin D and vitamin B Subjective Patient seen sitting up in the chair, reports that her breathing feels a lot better. States that when she was going to pulmonary rehab they had her at 4 L of oxygen at baseline. Since then she has been using 3 L at home at rest. Feels that her breathing is pretty close to her baseline. Does note increased cough and sputum production as well as some heartburn today does feel physically weaker than her baseline however this has improved from yesterday. Review of Systems Review of Systems: All systems reviewed & are unremarkable except as noted in Subjective Physical Exam Physical Exam: General: NAD, VS as above, sitting up in the chair, appears well Resp: normal respiratory effort, lungs With expiratory wheezing throughout, On 3 L nasal cannula CV: RRR, no murmur, Abd: normal bowel sounds, non tender, no hepatosplenomegaly Extremities: Moves all extremities, no edema Neuro: A&O x3, Skin: intact, no lesions noted Results & Data Results & Data Vital Signs (Past 12 Hours) Vital Signs Temp Pulse Resp BP Pulse Ox O2 Del Method O2 Flow Rate 05/11/24 11:07 74 22 90 Nasal Cannula 3 05/11/24 09:24 94 Nasal Cannula 3 05/11/24 07:46 97.7 F 67 18 178/71 H 97 Nasal Cannula 4 05/11/24 07:40 Nasal Cannula 4 Laboratory Results CBC and chemistry reviewed PG Care Time/CCT Total # of Minutes Spent Total Time Spent with Patient: Total time spent is greater than 50% in coordination of care (as documented) at patient's floor/unit and/or counseling patient: Coding Level of Care Code 97436 SUB INP/OBS CARE 3/50MIN Diagnoses COVID U07.1 Acute and chronic respiratory failure J96.20 Type 2 diabetes mellitus E11.9 COPD (chronic obstructive pulmonary disease) J44.9"
[2024-05-11] MEDS: CALCIUM CARBONATE 500 MG CHEWABLE TAB PO PRN (12:14)
[2024-05-11] MEDS: amLODIPine BESYLATE 5 MG TAB PO SCH (12:14)
--- NOTE | 2024-05-11 12:55 | Pharmacy Report ---
Pharmacy Glycemic Short Note 2 - Date of Service May 11, 2024 - Glycemic Short BSG Results (Last 24 hours): 05/10/24 05/10/24 05/10/24 12:20 16:32 20:19 Glucose 228 H POC Glucose 123 H 171 H 05/11/24 05/11/24 05/11/24 06:52 07:37 11:33 Glucose 234 H POC Glucose 221 H 254 H OUTPATIENT ANTIDIABETIC REGIMEN: * Metformin 500mg PO Daily * A1c 8.2% 05/11/24 ASSESSMENT: * 83 yo M, admitted with Acute on chronic hypoxic respiratory failure due to COVID, CXR without evidence of superimposed pneumonia, on Dexamethasone 6mg IV daily. * Type 2 DM on Metformin alone as outpatient. Patient had 3 units of NovoLog yesterday, BSG 221mg/dl this AM, added Lantus this morning with IV steroids, and PRN dose tonight. NovoLog parameters tightened. Will titrate to goal blood sugar. PLAN FOR INPATIENT GLYCEMIC CONTROL: * Hold outpatient oral diabetes medications * Basal insulin * Lantus 10 units SQ daily with IV Dexamethasone, 10 units HS for BSG > 1 80mg/dl * Bolus insulin * NovoLog per scale ACHS or Q6hrs while NPO * Goal Range: Low 110 mg/dL - High 140 mg/dL * Correction Factor: 25 mg/dL/unit * Nutritional / Prandial insulin per carb ratio of 1 unit per 7 grams CHO consumed
[2024-05-11] MEDS: REMDESIVIR 100 MG in SODIUM CHLORIDE 0.9% 230 ML IV SCH (14:44)
[2024-05-11] MEDS: guaiFENesin/DEXTROM SYRUP 200MG/20MG 10ML UDC PO PRN (16:02)
[2024-05-11] MEDS: FLUTICASONE PROPIONATE NA SPR 16 GM BTL NAE SCH (20:35)
[2024-05-11] MEDS: ACETAMINOPHEN 325 MG TAB PO PRN (20:49)
[2024-05-12 06:47] LABS: Basophils # (auto) 0.01 K/uL (0.00-0.20); Basophils % (auto) 0.1 %; Hematocrit (blood only) 41.8 % (37.0-47.0); Hemoglobin 13.6 g/dl (12.0-16.0); Immature Granulocytes # (auto) 0.05 K/uL (0.01-0.20); Immature Granulocytes % (auto) 0.4 %; Lymphocytes # (auto) 1.56 K/uL (1.20-3.40); Lymphocytes % (auto) 12.9 %; Mean Corpuscular Hemoglobin 30.5 pg (25.0-34.0); Mean Corpuscular Hgb Conc 32.5 g/dL (32.0-36.0); Mean Corpuscular Volume 93.7 fL (80.0-100.0); Mean Platelet Volume 11.4 fL (9.4-12.4); Monocytes # (auto) 0.62 K/uL (0.11-0.59); Monocytes % (auto) 5.1 %; Neutrophils # (auto) 9.88 K/uL (1.40-6.50); Neutrophils % (auto) 81.5 %; Platelet Count 165 K/uL (130-400); RDW Coefficient of Variation 13.2 % (11.5-14.5); RDW Standard Deviation 45.8 fL (36.4-46.3); Red Blood Count 4.46 M/uL (4.20-5.40); White Blood Count 12.12 K/ul (4.8-10.8)
[2024-05-12 07:04] LABS: BUN Creatinine Ratio 46.3 (10-20); Calcium 8.9 mg/dl (8.6-10.3); Creatinine Clr Calc Pharmacy 96.7 ml/min; Potassium 3.9 mmol/L (3.5-5.1)
[2024-05-12 08:07] VITALS: PULSE 72; RESP 18; TEMP 97.9; O2SAT 96
[2024-05-12] MEDS: ASPIRIN 81 MG ECTAB PO SCH (08:20)
[2024-05-12 09:42] VITALS: BP 144/80
--- NOTE | 2024-05-12 10:42 | Discharge Summary ---
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 On admission found to be COVID positive, CXR without evidence of superimposed pneumonia. Admitted for supplemental oxygen, IV steroids and remdesivir. Was also treated for COPD exacerbation with doxycycline. She maintained her oxygen on her home 3-4L, has been independent in the room. Discharge to home with dexamethasone PO, continue course of doxycycline and prn albuterol inhaler. Paxlovid deferred d/t medication interactions. #DM2 A1c 8.2 (prior 6.6) Home meds: metformin ER 500mg once daily - increased to BID at discharge. Hyperlipidemia: Continue pravastatin Anxiety/depression: Continue Lexapro Hypertension: Continue aspirin, BenzePril, amlodopine, HCTZ History of lung adenocarcinoma s/p left upper lobe wedge resection 2009, right upper lobe wedge resection 2020: With nodules followed outpatient by pulmonology. No acute change in management Dispo: discharge to home today (2) Acute and chronic respiratory failure: (3) Type 2 diabetes mellitus: (4) COPD (chronic obstructive pulmonary disease): Admission HPI Per Admitting Provider Anita is an 83-year-old male with a past medical history of type II DM, lung cancer, COPD with chronic respiratory failure on home oxygen, peripheral neuropathy, anaphylactic penicillin allergy who presents to the emergency department with 5 days of cough, congestive, with thick sputum production and who has a family however recently had COVID. She has been using her oxygen throughout the day which she normally only uses at night. On ER evaluation she is on 4 L of oxygen, tachypneic, and wheezy. She has a leukocytosis without left shift. BioFire is positive for COVID. Chest x-ray shows no acute findings no evidence of superimposed pneumonia. She is recommended for admission for acute hypoxic respiratory failure due to COVID-pneumonia. Seen at the bedside. Reports 4 to 5 days of feeling chilly, with change sputum production to thick yellow, cough, shortness of breath. Increase in oxygen requirements from 2 L at night to daily 2-3 L at home and still feeling shortness of breath. No chest pain. No nausea/vomiting/diarrhea/constipation. No syncope. Overall is tired and mostly worried about pneumonia. She took all of her medications this morning. Medical History: Reviewed Medications: Reviewed Surgical History: Reviewed Family history: Reviewed Allergies: Reviewed Social History: Reviewed Code Status: Full Discharge Exam General: NAD, VS as above, sitting up in bed, appears well Resp: normal respiratory effort, lungs With expiratory wheezing throughout, On 3 L nasal cannula CV: RRR, no murmur, Abd: normal bowel sounds, non tender, no hepatosplenomegaly Extremities: Moves all extremities, no edema Neuro: A&O x3, Skin: intact, no lesions noted Discharge Plan Discharge Items Patient Disposition: Home - Self-Care Reason For Visit: COVID Discharge Diagnosis: COVID Activity: Resume your previous activity Weightbearing: Full weightbearing Non-emergency contact: Primary Care Provider Call non-emergency contact if: you have any medication questions, your symptoms worsen, your pain is worsening and your temperature is above 101 Follow-up/Referrals: Nesha Jones DO [Primary Care Provider] - (f/u one week ) Diet: Carb Consistent or DM2 Addtl Attending Provider Instructions: Ms. Tavarez, You were hospitalized after having shortness of breath and cough found to be from COVID. You were treated with remdesivir, IV steroids and doxycycline (antibiotic) for concerns for COPD exacerbation and have improved. The cough may linger for a week or so, but should continue to improve. You will likely continue to have phlegm production, please continue to use your incentive spirometer and flutter valve at home. We check your hgbA1c which is the average off your blood sugars over 90 days, which is elevated at 8.2, previously it was 6.6. I have increased your Metformin to twice a day. If you have any issues with diarrhea or GI side effects from this please discuss with your PCP. I know you wanted to speak with the special education paraeducator regarding this increase, unfortunately they do not work on the weekends. This is the number to contact them for any further questions - [phone]. Medication changes: * Metformin increased to twice daily * dexamethasone - steroid to help with breathing, take this daily for the next 8 days * Albuterol inhaler - uses every 4 hours as needed for shortness of breath or wheezing * Cough syrup - I have sent the in the prescription for this, but may not be covered by your insurance as it is over the counter. If not you can purchase Robotussin over the counter * Doxycyline - antibiotic, for COPD exacerbation. Take as prescribed, with food/water. Please take the whole course even if you feel well. Please follow up with your PCP within 1 week of discharge. Activity: You can do normal everyday activities as your body allows. Take rest breaks if you feel tired. Do not overexert. Stop activity if you have pain, shortness of breath or feel dizzy. Follow-up appointments: Make an appointment with your primary care physician within one week of discharge. A copy of this summary will be sent to them. Every time you see your primary care physician, or any other doctor, bring your medication list, and a list of questions. CONTACT YOUR PRIMARY CARE PROVIDER if you experience any of the following: Shortness of breath or difficulty breathing Fevers or chills Feeling tired with normal activity or experiencing dizziness or fainting Difficulty following your treatment plan, or difficulty taking medications CALL 911 OR GO TO THE EMERGENCY DEPARTMENT if you experience any of the following: Severe abdominal pain or nausea/vomiting Severe chest pain, or chest pain that radiates (moves) to your jaw or arm Sudden, severe shortness of breath or difficulty breathing Thank you for allowing us to participate in your care. Pending Studies at Discharge: No Stand-Alone Forms: My [facility], Smoking Cessation Medications and DC Order Prescriptions: New doxycycline hyclate 100 mg Capsule 100 mg PO BID 5 Days Qty: 10 0RF dextromethorphan-guaifenesin [Robitussin Cough-Chest Chirag DM] 5-100 mg/5 mL Liquid 10 ml PO Q6H PRN (Reason: cough) Qty: 200 0RF dexamethasone 6 mg tablet 6 mg PO DAILY Qty: 8 0RF Continued aspirin 81 mg tablet,delayed release (DR/EC) 81 mg PO DAILY Rx Instructions: Unable to verify OTC meds at this date/time. amlodipine 10 mg tablet 10 mg PO QDL Qty: 90 3RF escitalopram oxalate 10 mg tablet 15 mg PO DAILY Qty: 135 3RF celecoxib [Celebrex] 200 mg capsule 200 mg PO BID (DME) Portable Oxygen Misc See Rx Instructions .MEDSUPPLY Qty: 1 0RF Rx Instructions: Oxygen 1 liter via Nasal cannula at rest and 4 liters continuous via nasal cannula on exertion with portable concentrator. PRABHAKAR 99 Dupixent Pen 300 mg/2 mL pen injector 300 mg subcut Q14D Qty: 2 10RF Rx Instructions: To be started 14 days after loading dose; Maintenance dose: Inject 300 mg(2 ml) subcutaneously every other week cholecalciferol (vitamin D3) 1,000 unit capsule 1,000 units PO QDL Rx Instructions: Unable to verify OTC meds at this date/time. pravastatin 80 mg tablet 40 mg PO QPM Qty: 45 3RF Spiriva Respimat 2.5 mcg/actuation mist 2 puff inhalation DAILY Qty: 4 6RF Rx Instructions: filled 12/24 30 day supply fluticasone furoate-vilanterol [Breo Ellipta] 200-25 mcg/dose blister with device 1 inh inhalation DAILY Qty: 60 6RF ascorbic acid (vitamin C) [Vitamin C] 1,000 mg Tablet 1 g PO QDL Rx Instructions: Unable to verify OTC meds at this date/time. [place]-3 Fish Oil 300-1,000 mg Capsule 1 tab PO QDL Rx Instructions: Unable to verify OTC meds at this date/time. cyanocobalamin (vitamin B-12) [Vitamin B-12] 1,000 mcg Tablet 1,000 mcg PO QDL Rx Instructions: Unable to verify OTC meds at this date/time. acetaminophen 325 mg Tablet 650 mg PO Q4H PRN (Reason: pain) Qty: 20 0RF Rx Instructions: Unable to verify OTC meds at this date/time. fluticasone propionate 50 mcg/actuation spray,suspension 1 spray INTRANASAL BID levocetirizine 5 mg tablet 5 mg PO HS Rx Instructions: filled 03/04 30 day supply hydrochlorothiazide 25 mg tablet 25 mg PO DAILY Rx Instructions: Take 1 tablet by mouth once daily epinephrine [EpiPen] 0.3 mg/0.3 mL auto-injector 0.3 mg IM Q4H PRN (Reason: anaphylaxis) Qty: 2 1RF benazepril 40 mg tablet 40 mg PO DAILY montelukast 10 mg tablet 10 mg PO DAILY albuterol sulfate [Ventolin HFA] 90 mcg/actuation HFA aerosol inhaler 2 puff INHALATION Q4H PRN (Reason: Wheezing) Qty: 18 0RF Changed metformin 500 mg tablet extended release 24 hr 500 mg PO BID Qty: 60 0RF Discharge Orders: Discharge Order (Routine); Ordered 05/12/24 Ordered By: Laura Fung/Other Patient Handouts: Diabetes: Meal Planning, Type 2 Diabetes Admission Data Admit Date/Time: 05/10/24 14:48 Attending Provider: Melanie Perera Admit Provider: Killian Terrell Primary Care Provider: Nesha Jones Other Providers: Killian Terrell Other Interventions: Discharge Summary Assessment (RN) Last Done: 05/12/24 10:29 Hospital Stay Data Consultations 05/10/24 14:30 ED Decision to Admit Stat Diagnostic Imagining Performed Chest X-Ray 05/10/24 11:22 XR chest 1V not portable CLINICAL HISTORY: Chest pain, nonspecific COMPARISON STUDY: Chest CT March 05, 2024. Chest radiograph April 22, 2024. FINDINGS: There are stable postoperative findings within the chest. 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 This is chronic. There is no superimposed consolidation. Cardiomegaly is again noted. There is no evidence for pulmonary edema. Multiple old bilateral rib deformities are present. The appearance of the chest is unchanged. IMPRESSION: No acute cardiopulmonary findings. No change in appearance of the chest. ACT 112: Negative or not required by law. Electronically signed by: Damion Guerrier M.D. 05/10/2024 1:15 PM Pending Results Patient Have Any Pending Studies at Discharge: No Discharge Instructions Given to Patient (Per Discharging Provider) Ms. Tavarez, You were hospitalized after having shortness of breath and cough found to be from COVID. You were treated with remdesivir, IV steroids and doxycycline (antibiotic) for concerns for COPD exacerbation and have improved. The cough may linger for a week or so, but should continue to improve. You will likely continue to have phlegm production, please continue to use your incentive spirometer and flutter valve at home. We check your hgbA1c which is the average off your blood sugars over 90 days, which is elevated at 8.2, previously it was 6.6. I have increased your Metformin to twice a day. If you have any issues with diarrhea or GI side effects from this please discuss with your PCP. I know you wanted to speak with the special education paraeducator regarding this increase, unfortunately they do not work on the weekends. This is the number to contact them for any further questions - [phone]. Medication changes: * Metformin increased to twice daily * dexamethasone - steroid to help with breathing, take this daily for the next 8 days * Albuterol inhaler - uses every 4 hours as needed for shortness of breath or wheezing * Cough syrup - I have sent the in the prescription for this, but may not be covered by your insurance as it is over the counter. If not you can purchase Robotussin over the counter * Doxycyline - antibiotic, for COPD exacerbation. Take as prescribed, with food/water. Please take the whole course even if you feel well. Please follow up with your PCP within 1 week of discharge. Activity: You can do normal everyday activities as your body allows. Take rest breaks if you feel tired. Do not overexert. Stop activity if you have pain, shortness of breath or feel dizzy. Follow-up appointments: Make an appointment with your primary care physician within one week of discharge. A copy of this summary will be sent to them. Every time you see your primary care physician, or any other doctor, bring your medication list, and a list of questions. CONTACT YOUR PRIMARY CARE PROVIDER if you experience any of the following: Shortness of breath or difficulty breathing Fevers or chills Feeling tired with normal activity or experiencing dizziness or fainting Difficulty following your treatment plan, or difficulty taking medications CALL 911 OR GO TO THE EMERGENCY DEPARTMENT if you experience any of the following: Severe abdominal pain or nausea/vomiting Severe chest pain, or chest pain that radiates (moves) to your jaw or arm Sudden, severe shortness of breath or difficulty breathing Thank you for allowing us to participate in your care. Supervising Physician Co-Signing Physician Notes KYLAH Supervision Note: I did not personally see or examine the patient today, but I verified all barajas points of KYLAH Bello's assessment and plan with the following exceptions/additions: none Total Time Total Time Spent Total Time Spent (In Minutes): Time spent day of discharge 35 minutes including direct patient care, medication reconciliation, documentation, review of labs and images, and coordination of care. Coding Level of Care Code 38320 INP/OBS DISCH >30 MIN Diagnoses COVID U07.1 Acute and chronic respiratory failure J96.20 Type 2 diabetes mellitus E11.9 COPD (chronic obstructive pulmonary disease) J44.9"
[2024-05-12] MEDS: CYANOCOBALAMIN (B-12) 500 MCG TABLET PO SCH (12:18)
[2024-05-12] MEDS: CHOLECALCIFEROL 25 MCG (1000 UNITS) TAB PO SCH (12:18)
== END 2024-05-12 13:38 | disposition home or self-care (01) | DRG 177 ==
LOC: ED 11:15 → SUATTDRO 14:48 → 3W 14:48